=== PATIENT | female | born 1960 | race African-American/Black ===

== ENCOUNTER 2016-09-10 15:59 | Emergency (ER) | payer OTHER ==
[~2016-09-10 15:59] MED LIST: ADVA115INH INH; AMLO2.5T PO; CALTTAB10 PO; CLON0.2T PO; DEXI60CA PO; FOLI1TAB86 PO; FURO20TA2 PO; GABA400C PO; HYDR-3363 PO; HYDR5TAB23 PO; LAMO50TA PO; LANS30CA PO; LOSA100T36 PO; METH2.5T PO; TRAZ50TA2 PO; VENTAER INH; ZYRT10CA PO
[2016-09-10 16:35] LABS: BASO % 0.5 % (0.0-1.0); EOS # 0.1 K/mm3 (0.0-0.50); EOS % 1.4 % (0.0-3.0); LARGE UNSTAINED CELL # 0.2 K/mm3 (0.0-0.4); LYMPH # 1.2 K/mm3 (1.5-4.5); LYMPH % 15.5 % (24.0-44.0); MEAN CORPUSCULAR HEMOGLOBIN 35.2 pg (27.0-33.0); MEAN CORPUSCULAR VOLUME 103.6 fl (80.0-96.0); MONO # 0.2 K/mm3 (0.0-0.8); MONO % 2.8 % (0.0-5.0); NEUTROPHILS # 6.2 K/mm3 (1.8-7.7); NEUTROPHILS % 77.8 % (36.0-66.0); PLATELET COUNT, AUTOMATED 240 k/mm3 (150-450); RED CELL DISTRIBUTION WIDTH 13.3 % (11.5-14.5)
[2016-09-10 16:54] LABS: ANION GAP 11 MEQ/L (8-16); BLOOD UREA NITROGEN 6 MG/DL (7-18); CALCIUM LEVEL 8.6 MG/DL (8.5-10.1); CARBON DIOXIDE LEVEL 25 MEQ/L (21-32); CHLORIDE LEVEL 104 MEQ/L (98-107); CREATININE FOR GFR 1.89 MG/DL (0.55-1.02); GLOMERULAR FILTRATION RATE 35.4 (>51); GLUCOSE, FASTING 131 MG/DL (70-105); SODIUM LEVEL 140 MEQ/L (136-145)
[2016-09-10] MEDS ORDERED: guaiFENesin DM LIQ 10ML UD As Ordered ONE (17:02)
[2016-09-10] MEDS ORDERED: IPRATROPIUM 0.5MG/ALBUTEROL 2.5MG INH SOL UD 3ML (DUONEB)(J7620) As Ordered ONE (17:07)
[2016-09-10] MEDS ORDERED: dexameTHASONE 4 MG/ML 1ML VIAL (J1100) As Ordered ONE (17:07)
--- NOTE | 2016-09-10 17:12 | REP ---
Chest two views HISTORY: Cough Comparison: 06/08/2016 The lungs are clear. The heart is normal in size. The pulmonary vasculature is normal in appearance. The bony structure is intact. IMPRESSION: No acute disease. Signed by Yung Lawson MD 09/10/2016 05:03 P
[2016-09-10] MEDS ORDERED: POTASSIUM CHLORIDE 10 MEQ SR TABLET As Ordered ONE (18:39)
[2016-09-10] MEDS ORDERED: MORPHINE 4 MG/ML 1ML SYRINGE As Ordered ONE (18:40)
[2016-09-10] MEDS ORDERED: ACETAMINOPHEN 325 MG TAB As Ordered ONE (19:51)
--- NOTE | 2016-09-10 20:01 | EDDOCDS ---
Nurse's Notes [facility] Name: Aggie Champion Age: 56 yrs Sex: Female : 1960 Arrival Date: 09/10/2016 Time: 15:59 Bed 19 Private MD: Unknown, Family Dr Diagnosis: Simple chronic bronchitis;Pleurodynia;Hypokalemia Presentation: 09/10 16:12 Presenting complaint: Patient states: has been having chest pain / throat pain for last bcj few days worse today. + harsh cough. localizes worst pain under left breast. denies sweating. denies nausea vomiting. Aspirin was not taken prior to arrival. Adult Sepsis Screening: The patient does not have new or worsening altered mentation. Patient's respiratory rate is less than 22. Systolic blood pressure is greater than 100. Patient has a qSOFA score of 0- Negative Sepsis Screen. Suicide/Homicide risk assessment- the patient denies having any suicidal and/or homicidal ideations and does not present with any other emotional, behavioral or mental health complaints. Status: Patient is not a director of professional services or dependent. Transition of care: patient was not received from another setting of care. Red Flag criteria, patient assessed and taken directly to a bed. 16:12 Acuity: ROHAN Level 2 bcj 16:12 Method Of Arrival: Walkin/Carried/Asstd bcj Triage Assessment: 16:15 General: Appears distressed, Behavior is anxious. Pain: Location: chest and neck Pain bcj currently is 10 out of 10 on a pain scale. Pt Declines HIV testing. Cardiovascular: Chest pain is described as severe, radiates to left arm(s) episodes are continuous began. Derm: Skin is pink, warm & dry. Historical: - Allergies: Aspirin (Upset stomach); Motrin (Upset stomach); - Home Meds: 1. Advair Diskus 100-50 mcg/dose Inhl dsdv 1 puff 2 times per day 2. amlodipine 2.5 mg Oral tab 1 tab once daily 3. Atarax Oral 25 mg twice a day as needed 4. Caltrate 600 + D 600 mg (1,500 mg)-800 unit oral susp daily 5. folic acid 1 mg Oral tab 1 tab once daily 6. furosemide 20 mg Oral tab 1 tab once daily 7. gabapentin 400 mg Oral cap twice a day 8. hydrocodone-acetaminophen 5-325 mg Oral tab three times a day as needed 9. lamotrigine 100 mg Oral TbDL 2 times per day 10. lansoprazole 30 mg oral cpDR 30 mins pior to meals 11. losartan 100 mg oral tab 1 tab once daily 12. Methotrexate (Anti-Rheumatic) 2.5 mg Oral DsPk 7 tabs once wkly 13. Ventolin HFA 90 mcg/actuation Nebulizer HFAA 2 puffs every 6 hours as needed - PMHx: Anxiety; Arthritis; Asthma; Depression; Fibromyalgia; Hypercholesterolemia; Hypertension; insomnia; Osteoporosis; Rheumatoid Arthritis; - PSHx: Hernia repair; Cholecystectomy; - Social history: Smoking status: Patient states former smoker of tobacco. No barriers to communication noted, The patient speaks fluent Moldovan, Speaks appropriately for age. - Family history: Not pertinent. - : The pt / caregiver states he / she is not on anticoagulants. Home medication list is obtained from [employer] import data. - Exposure Risk Screening:: None identified. Screenin:07 Infection Control. cmb 16:20 Screening information is obtained from the patient. Fall risk: No risks identified. jmb Assistance ADL's: requires no assistance with activities of daily living. Abuse/DV Screen: The patient / caregiver reports he/she is: not in a situation that causes fear, pain or injury. Nutritional screening: No deficits noted. home support is adequate. 19:57 Advance Directives: Currently, there is no health care proxy. There is no active DNR jmb order. There is no living will. There is no Power of Community Health Director. Assessment: 16:20 General: Appears uncomfortable, Behavior is restless. Pain: Location: neck and chest jmb Pain currently is 10 out of 10 on a pain scale. Is intermittent. Neurological: Level of Consciousness is awake, alert, obeys commands, Oriented to person, place, time, Shank Taper are equal bilaterally Speech is normal, Facial symmetry appears normal, Facial symmetry: tongue is midline. Cardiovascular: Capillary refill < 3 seconds Heart tones S1 S2 present Pulses are all present. Rhythm is sinus tachycardia No ectopy. Chest pain is described as Pain is 10 out of 10 on a pain scale. Respiratory: Airway is patent Respiratory effort is even, unlabored, Respiratory pattern is regular, symmetrical, Breath sounds are clear bilaterally. GI: Abdomen is non- distended Bowel sounds present X 4 quads. Abd is soft X 4 quads. Derm: Skin is normal. Musculoskeletal: Range of motion intact in all extremities. 17:05 General: Appears uncomfortable, Behavior is appropriate for age, cooperative, Patient jmb restless on stretcher, medicated per provider orders. Respiratory paged per orders.. Neurological: Level of Consciousness is awake, alert, obeys commands, Oriented to person, place, time. Respiratory: Airway is patent Respiratory effort is even, unlabored, Respiratory pattern is regular, symmetrical. 17:44 General: Appears in no apparent distress, Behavior is appropriate for age, cooperative, jmb Patient laying on stretcher, family at bedside. NO voiced complaints at this time. . Neurological: Level of Consciousness is awake, alert, obeys commands, Oriented to person, place, time. Respiratory: Airway is patent Respiratory effort is even, unlabored, Respiratory pattern is regular, symmetrical. 17:56 General: Patient defecated in pants. Demeisha Aryan DIRECTOR OF ACQUISITION MARKETING and Camryn Gonzalez DIRECTOR OF ACQUISITION MARKETING in to jmb clean patient. . 18:15 General: Appears in no apparent distress, comfortable, Behavior is appropriate for age, jmb cooperative. Neurological: Level of Consciousness is awake, alert, obeys commands, Oriented to person, place, time. Respiratory: Airway is patent Respiratory effort is even, unlabored, Respiratory pattern is regular, symmetrical. 18:18 General: Patient requested something for pain. Notified Dr. Jones of patient request jmb for pain medication.. 18:48 General: Appears uncomfortable, Behavior is appropriate for age, cooperative, Patient jmb hollering out, patient encouraged to relax. Patient encouraged to breath in through nose and out through mouth. Patient after instructed started to feel more comfortable, less hollering out in discomfort. . Neurological: Level of Consciousness is awake, alert, obeys commands, Oriented to person, place, time. Respiratory: Airway is patent Respiratory effort is even, unlabored, Respiratory pattern is regular, symmetrical. 19:57 General: Patient instructed on discharge instructions. Patient asked if there were any b questions regarding discharge, patient stated no. IV discontinued per hospital policy. Patient signed discharge instructions. Patient temperature upon discharge 101.0 orally, notified Dr. Llamas whom ordered tylenol 650 mg by mouth. Patient refused tylenol stating that they normally order her pain medications for her temperature. Patient explained that provider ordered tylenol, unable to give motrin or aspirin due to allergy. Patient refused all medications at this time. Patient discharged in stable condition. . Vital Signs: 16:02 BP 120 / 71; Pulse 122; Resp 20; Temp 99(O); Pulse Ox 94% ; Weight 71.67 kg; Height 5 cmb ft. 2 in. (157.48 cm); Pain 10/10; 16:41 BP 104 / 55 (auto/); jmb 16:41 Pulse 118 MON; Pulse Ox 93% ; jmb 16:56 BP 143 / 97 (auto/); jmb 16:56 Pulse 120 MON; Pulse Ox 90% ; jmb 17:26 BP 144 / 83 (auto/); jmb 17:26 Pulse 118 MON; Pulse Ox 87% ; jmb 17:41 BP 140 / 77 (auto/); jmb 17:41 Pulse 124 MON; Pulse Ox 78% ; jmb 17:56 BP 115 / 81 (auto/); jmb 17:56 Pulse 128 MON; jmb 18:11 BP 160 / 72 (auto/); jmb 18:11 Pulse 126 MON; jmb 18:26 BP 124 / 67 (auto/); jmb 18:26 Pulse 124 MON; jmb 18:41 BP 125 / 69 (auto/); jmb 18:42 Pulse 126 MON; Pulse Ox 88% ; jmb 19:10 BP 117 / 64; Pulse 118; Resp 20; Temp 101.3(O); Pulse Ox 89% on R/A; Pain 9/10; shannan 19:57 Temp 101.0(O); jmb 16:02 Body Mass Index 28.90 (71.67 kg, 157.48 cm) b 19:10 RN aware of temp shannan 19:[address] Llamas [facility] Vitals: 16:02 Log In Time: September 10, 2016 at 15:[address]. [facility] ED Course: 16:00 Patient visited by Palak Thorpe. [facility] 16:00 Patient moved to Waiting [facility] 16:02 Unknown, Family is Private Physician. [facility] 16:02 RN notified that patient meets Red Flag criteria. b 16:12 Patient moved to 19 [facility] 16:14 Triage Initiated [facility] 16:17 Patient visited by Anthony Martinez, MALDONADO. bcj 16:19 Roe Jones DO is Attending Physician. cs11 16:19 Patient visited by Roe Jones DO. cs11 16:20 The patient / caregiver is instructed regarding the plan of care and ED course. Cardiac jmb monitor on. Pulse ox on. NIBP on. 16:20 EKG done. (by ED staff). Reviewed by Roe Jones DO. dem1 16:20 Inserted saline lock: 20 gauge in right antecubital area and blood collected. The jmb patient tolerated the procedure well. Labs drawn. (by ED staff). Sent per order to lab. 16:23 Patient visited by Lalita Baeza. dem1 16:24 Patient visited by Jamar Christopher,MALDONADO. jmb 16:30 -Influenza A&B Rapid Antigen - Nose Sent. jmb 17:06 Patient visited by Jamar Christopher RN. jmb 17:23 Chest, 2 View (pa\E\lat) Returned. EDMS 17:44 Patient visited by Jamar Christopher RN. jmb 18:15 Patient visited by Jamar Christopher RN. jmb 18:42 Patient visited by Uzma Pedroza PCA. shannan 18:42 Assisted with bedpan. shannan 18:49 Patient visited by Jamar Christopher RN. jmb 19:11 Patient visited by Uzma Pedroza PCA. shannan 19:57 Discontinued lock intact, bleeding controlled, pressure dressing applied, No jmb redness/swelling at site. No procedures done that require assistance. Administered Medications: 17:05 Drug: Dextromethorphan-Guaifenesin 5 ml [dextromethorphan-guaifenesin 10 mg-100 mg/5 mL jmb oral liquid (5 mL)] Route: PO; 17:10 Drug: Dexamethasone 10 mg [dexamethasone 4 mg/mL injection solution] Route: IV; Rate: jmb bolus; Site: right antecubital; 17:10 Drug: Albuterol-Ipratropium 3 ml [ipratropium-albuterol 0.5 mg-3 mg(2.5 mg base)/3 mL sd7 nebulization soln (3 mL)] Route: Inhalation; 17:18 Follow up: Response: Nebulizer completed 18:47 Drug: Potassium Chloride 40 mEq [potassium chloride ER 10 mEq tablet,extended release jmb (4 tabs)] Route: PO; 18:47 Drug: morphine 4 mg [morphine 4 mg/mL intravenous cartridge (1 mL)] Route: IVP; Site: [facility] right antecubital; 19:57 Not Given (Patient Refused): Acetaminophen Tablet 650 mg PO once jmb RT: 17:13 Initial Med Neb Given as ordered Patient was instructed and evaluated on procedure sd7 Patient tolerated procedure well without adverse effect. Respiratory: Breath sounds are diminished bilaterally. Order Results: Lab Order: Basic Metabolic Profile; SPEC'M 09/10/16 16:18 Test: GLUCOSE, FASTING; Value: 131; Range: 70-105; Abnormal: Above high normal; Units: MG/DL; Status: F Test: BLOOD UREA NITROGEN; Value: 6; Range: 7-18; Abnormal: Below low normal; Units: MG/DL; Status: F Test: CREATININE FOR GFR; Value: 1.89; Range: 0.55-1.02; Abnormal: Above high normal; Units: MG/DL; Status: F Test: GLOMERULAR FILTRATION RATE; Value: 35.4; Range: >51; Abnormal: Below low normal; Status: F Test: SODIUM LEVEL; Value: 140; Range: 136-145; Units: MEQ/L; Status: F Test: POTASSIUM SERUM; Value: 3.0; Range: 3.5-5.1; Abnormal: Below low normal; Units: MEQ/L; Status: F Test: CHLORIDE LEVEL; Value: 104; Range: 98-107; Units: MEQ/L; Status: F Test: CARBON DIOXIDE LEVEL; Value: 25; Range: 21-32; Units: MEQ/L; Status: F Test: ANION GAP; Value: 11; Range: 8-16; Units: MEQ/L; Status: F Test: CALCIUM LEVEL; Value: 8.6; Range: 8.5-10.1; Units: MG/DL; Status: F Test Note: ; Units are mL/min/1.73 m2 Chronic Kidney Disease Staging per NKF: Stage I & II GFR >=60 Normal to Mildly Decreased Stage III GFR 30-59 Moderately Decreased Stage IV GFR 15-29 Severely Decreased Stage V GFR <15 Very Little GFR Left ESRD GFR <15 on DRAWING INSTRUCTOR Lab Order: CBC with Diff; SPEC'M 09/10/16 16:18 Test: WHITE BLOOD COUNT; Value: 8.0; Range: 4.0-10.0; Units: K/mm3; Status: F Test: RED BLOOD COUNT; Value: 4.06; Range: 4.00-5.40; Units: M/mm3; Status: F Test: HEMOGLOBIN; Value: 14.3; Range: 12.0-16.0; Units: g/dl; Status: F Test: HEMATOCRIT; Value: 42.1; Range: 36.0-47.0; Units: %; Status: F Test: MEAN CORPUSCULAR VOLUME; Value: 103.6; Range: 80.0-96.0; Abnormal: Above high normal; Units: fl; Status: F Test: MEAN CORPUSCULAR HEMOGLOBIN; Value: 35.2; Range: 27.0-33.0; Abnormal: Above high normal; Units: pg; Status: F Test: MEAN CORPUSCULAR HGB CONC; Value: 34.0; Range: 32.0-36.5; Units: g/dl; Status: F Test: RED CELL DISTRIBUTION WIDTH; Value: 13.3; Range: 11.5-14.5; Units: %; Status: F Test: PLATELET COUNT, AUTOMATED; Value: 240; Range: 150-450; Units: k/mm3; Status: F Test: NEUTROPHILS %; Value: 77.8; Range: 36.0-66.0; Abnormal: Above high normal; Units: %; Status: F Test: LYMPH %; Value: 15.5; Range: 24.0-44.0; Abnormal: Below low normal; Units: %; Status: F Test: MONO %; Value: 2.8; Range: 0.0-5.0; Units: %; Status: F Test: EOS %; Value: 1.4; Range: 0.0-3.0; Units: %; Status: F Test: BASO %; Value: 0.5; Range: 0.0-1.0; Units: %; Status: F Test: LARGE UNSTAINED CELL %; Value: 2.0; Range: 0.0-4.0; Units: %; Status: F Test: NEUTROPHILS #; Value: 6.2; Range: 1.8-7.7; Units: K/mm3; Status: F Test: LYMPH #; Value: 1.2; Range: 1.5-4.5; Abnormal: Below low normal; Units: K/mm3; Status: F Test: MONO #; Value: 0.2; Range: 0.0-0.8; Units: K/mm3; Status: F Test: EOS #; Value: 0.1; Range: 0.0-0.50; Units: K/mm3; Status: F Test: BASO #; Value: 0.0; Range: 0.0-0.2; Units: K/mm3; Status: F Test: LARGE UNSTAINED CELL #; Value: 0.2; Range: 0.0-0.4; Units: K/mm3; Status: F Lab Order: Cardiac Injury Profile; SPEC' 09/10/16 16:18 Test: CPK CREATINE PHOSPHOKINASE; Value: 483; Range: 26-192; Abnormal: Above high normal; Units: U/L; Status: F Test: CK-MB VALUE MASS; Value: 1.0; Range: 0.0-3.6; Units: NG/ML; Status: F Test: MB/CK RELATIVE INDEX; Value: 0.20; Range: < OR =4; Status: F Test Note: ; DIAGNOSIS CRITERIA MMB ng/ml Relative Index (RI) NON-AMI < or = 5 N/A MORALES ZONE > 5 < or = 4 AMI > 5 > 4 Lab Order: Troponin; SPEC'M 09/10/16 16:18 Test: TROPONIN I; Value: < 0.02; Range: < 0.10; Units: NG/ML; Status: F Test Note: ; Troponin I Reference Interval for [employer] LOCI: 99th Percentile= 0.00-0.045 ng/ml Risk Stratification: <= 0.10 ng/ml Decreased Risk for Adverse Clinical Events. 0.10-1.50 ng/ml Increased Risk for Adverse Clinical Events. Evaluation of additional criterion and/or repeat testing in 2-6 hours is suggested to rule out myocardial damage. >= 1.50 ng/ml Indicative of Myocardial Injury. Lab Order: -Influenza A&B Rapid Antigen - Nose; SPEC'M 09/10/16 16:27 Test: INFLUENZA A RAPID SCR by ICA; Value: INFLUENZA A RESULTS NEGATIVE; Status: F Test: INFLUENZA A RAPID SCR by ICA; Value: Comments:; Status: F Test: INFLUENZA B RAPID SCR by ICA; Value: INFLUENZA B RESULTS NEGATIVE; Status: F Test Note: ; The Influenza test is a direct rapid immunoassay for the qualitative detection of Influenza viral antigen. Cell culture (Viral Culture) testing should be considered to confirm NEGATIVE results and to assist in detecting other viruses that can provide similar clinical symptoms. Please contact the lab within 24 hours ([phone]) if confirmatory testing is desired. Radiology Order: Chest, 2 View (pa\E\lat) Test: Chest, 2 View (pa\E\lat) REASON FOR EXAMINATION: Cough; Chest two views; ; HISTORY: Cough; ; Comparison: 06/08/2016; ; The lungs are clear. The heart is normal in size. The pulmonary vasculature is; normal in appearance. The bony structure is intact.; ; IMPRESSION: No acute disease.; ; ; Signed by; Yung Lawson MD 09/10/2016 05:03 P; Outcome: 19:05 Discharge ordered by Provider. 11 19:57 Discharge Assessment: Patient awake, alert and oriented x 3. No cognitive and/or jmb functional deficits noted. Patient verbalized understanding of disposition instructions. Patient awake and alert. obeys commands, Oriented to person, place and time. Patient verbalized understanding of disposition instructions. Patient has no functional deficits. patient administered narcotics - no. Discharge Assessment: patient administered narcotics - yes. Pt provided with safe discharge. The following High Risk Discharge criteria are identified: None. Discharged to home ambulatory, with significant other. Condition: stable. Discharge instructions given to patient, Instructed on discharge instructions, follow up and referral plans. medication usage, Demonstrated understanding of instructions, medications, Pt was receptive of discharge instructions/ teaching. Prescriptions given X 2. No special radiology studies were completed. Property sent home with patient. 20:00 Patient left the ED. chalino Signatures: Dispatcher [employer] EDAnthony Bourgeois, RN RN Uzma Ghosh, DANIELLA DIRECTOR OF ACQUISITION MARKETING Lalita Wilson1 Palak Thorpe cmRoe Holder DO DO cs11 Jamar Christopher,Neida Ramirez RN,RT RT sd7 MTDD
--- NOTE | 2016-09-10 20:01 | EDDOCDS ---
Physician Documentation [facility] Name: Aggie Champion Age: 56 yrs Sex: Female : 1960 Arrival Date: 09/10/2016 Time: 15:59 Bed 19 Private MD: Unknown, Family Dr Disposition: 09/10/16 19:05 Discharged to Home/Self Care. Impression: Simple chronic bronchitis, Pleurodynia, Hypokalemia. - Condition is Stable. - Prescriptions for dextromethorphan- guaifenesin 30-200 mg/5 mL Oral liquid - take 5 milliliter by ORAL route every 6 hours as needed; 100 milliliter. Prednisone 20 mg Oral Tablet - take 3 tablet by ORAL route once daily for 5 days; 15 tablet. - Medication Reconciliation, Local Pharmacy Hours form. - Follow up: Private Physician; When: Call to arrange an appointment; Reason: Recheck today's complaints. - Problem is an ongoing problem. - Symptoms have improved. Historical: - Allergies: Aspirin (Upset stomach); Motrin (Upset stomach); - Home Meds: 1. Advair Diskus 100-50 mcg/dose Inhl dsdv 1 puff 2 times per day 2. amlodipine 2.5 mg Oral tab 1 tab once daily 3. Atarax Oral 25 mg twice a day as needed 4. Caltrate 600 + D 600 mg (1,500 mg)-800 unit oral susp daily 5. folic acid 1 mg Oral tab 1 tab once daily 6. furosemide 20 mg Oral tab 1 tab once daily 7. gabapentin 400 mg Oral cap twice a day 8. hydrocodone-acetaminophen 5-325 mg Oral tab three times a day as needed 9. lamotrigine 100 mg Oral TbDL 2 times per day 10. lansoprazole 30 mg oral cpDR 30 mins pior to meals 11. losartan 100 mg oral tab 1 tab once daily 12. Methotrexate (Anti-Rheumatic) 2.5 mg Oral DsPk 7 tabs once wkly 13. Ventolin HFA 90 mcg/actuation Nebulizer HFAA 2 puffs every 6 hours as needed - PMHx: Anxiety; Arthritis; Asthma; Depression; Fibromyalgia; Hypercholesterolemia; Hypertension; insomnia; Osteoporosis; Rheumatoid Arthritis; - PSHx: Hernia repair; Cholecystectomy; - Social history: Smoking status: Patient states former smoker of tobacco. No barriers to communication noted, The patient speaks fluent Czech, Speaks appropriately for age. - Family history: Not pertinent. - : The pt / caregiver states he / she is not on anticoagulants. Home medication list is obtained from [employer] import data. - Exposure Risk Screening:: None identified. Vital Signs: 09/10 16:02 BP 120 / 71; Pulse 122; Resp 20; Temp 99(O); Pulse Ox 94% ; Weight 71.67 kg / 158.01 cmb lbs; Height 5 ft. 2 in. (157.48 cm); Pain 10/10; 16:41 BP 104 / 55 (auto/); jmb 16:41 Pulse 118 MON; Pulse Ox 93% ; jmb 16:56 BP 143 / 97 (auto/); jmb 16:56 Pulse 120 MON; Pulse Ox 90% ; jmb 17:26 BP 144 / 83 (auto/); jmb 17:26 Pulse 118 MON; Pulse Ox 87% ; jmb 17:41 BP 140 / 77 (auto/); jmb 17:41 Pulse 124 MON; Pulse Ox 78% ; jmb 17:56 BP 115 / 81 (auto/); jmb 17:56 Pulse 128 MON; jmb 18:11 BP 160 / 72 (auto/); jmb 18:11 Pulse 126 MON; jmb 18:26 BP 124 / 67 (auto/); jmb 18:26 Pulse 124 MON; jmb 18:41 BP 125 / 69 (auto/); jmb 18:42 Pulse 126 MON; Pulse Ox 88% ; jmb 19:10 BP 117 / 64; Pulse 118; Resp 20; Temp 101.3(O); Pulse Ox 89% on R/A; Pain 9/10; shannan 19:57 Temp 101.0(O); jmb 16:02 Body Mass Index 28.90 (71.67 kg, 157.48 cm) cmb 19:10 RN aware of temp shannan 19:[address] Muriel allred MDM: 16:13 Software Configuration Specialist/Pulse Ox/q 30 min VS ordered. sd1 16:13 IV Saline Lock ordered. sd1 16:13 Rhythm Strip to chart ordered. sd1 16:13 Undress patient appropriately for examination ordered. sd1 16:14 Basic Metabolic Profile Ordered. EDMS 16:14 CBC with Diff Ordered. EDMS 16:14 Cardiac Injury Profile Ordered. EDMS 16:14 Troponin Ordered. EDMS 16:15 ECG WITH READING ER PHYS+CARDIAG ordered. EDMS 16:20 Chest, 2 View (pa\E\lat) Ordered. EDMS 16:23 -Influenza A&B Rapid Antigen - Nose Ordered. EDMS 16:42 CBC with Diff Reviewed. cs11 16:43 Dextromethorphan-Guaifenesin Liquid 10 mg-100 mg/5 mL 5 ml PO once ordered. cs11 17:00 Basic Metabolic Profile Reviewed. cs11 17:00 Cardiac Injury Profile Reviewed. cs11 17:00 Troponin Reviewed. cs11 17:00 -Influenza A&B Rapid Antigen - Nose Reviewed. cs11 17:01 Dexamethasone 10 mg IV at bolus once ordered. cs11 17:01 Albuterol-Ipratropium 3 ml Inhalation once ordered. cs11 17:01 Call Respiratory ordered. cs11 17:05 Call Respiratory complete. b 17:22 Financial registration complete. [email or web address] 18:21 Chest, 2 View (pa\E\lat) Reviewed. cs11 18:21 Potassium Chloride Extended Release Tablet 40 mEq PO once ordered. cs11 18:22 morphine 4 mg IVP once ordered. cs11 19:51 Acetaminophen Tablet 650 mg PO once ordered. michelle Administered Medications: 17:05 Drug: Dextromethorphan-Guaifenesin 5 ml [dextromethorphan-guaifenesin 10 mg-100 mg/5 mL b oral liquid (5 mL)] Route: PO; 17:10 Drug: Dexamethasone 10 mg [dexamethasone 4 mg/mL injection solution] Route: IV; Rate: jmb bolus; Site: right antecubital; 17:10 Drug: Albuterol-Ipratropium 3 ml [ipratropium-albuterol 0.5 mg-3 mg(2.5 mg base)/3 mL 7 nebulization soln (3 mL)] Route: Inhalation; 17:18 Follow up: Response: Nebulizer completed 18:47 Drug: Potassium Chloride 40 mEq [potassium chloride ER 10 mEq tablet,extended release jmb (4 tabs)] Route: PO; 18:47 Drug: morphine 4 mg [morphine 4 mg/mL intravenous cartridge (1 mL)] Route: IVP; Site: [facility] right antecubital; 19:57 Not Given (Patient Refused): Acetaminophen Tablet 650 mg PO once jmb Signatures: Dispatcher [employer] EDMS Tammie Acosta MD MD sd1 Anthony Martinez, RN RN mary Pillai, Hillary Diehl RN Roe Huggins, DO cs11 Jamar Christopher RN RN jmb Sorenson, Kimberly, Reg Reg [id number] Neida Contreras RT sd7 The chart was reviewed and I authenticate all verbal orders and agree with the evaluation and treatment provided.Corrections: (The following items were deleted from the chart) 16:21 16:15 Chest, 1 view+XR ordered. EDMS EDMS MTDD
--- NOTE | 2016-09-11 19:46 | ECGEPIP ---
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
--- NOTE | 2016-09-12 21:02 | EDDOCDS ---
Physician Documentation [facility] Name: Aggie Champion Age: 56 yrs Sex: Female : 1960 Arrival Date: 09/10/2016 Time: 15:59 Bed 19 Private MD: Unknown, Family Dr Disposition: 09/10/16 19:05 Discharged to Home/Self Care. Impression: Simple chronic bronchitis, Pleurodynia, Hypokalemia. - Condition is Stable. - Prescriptions for dextromethorphan- guaifenesin 30-200 mg/5 mL Oral liquid - take 5 milliliter by ORAL route every 6 hours as needed; 100 milliliter. Prednisone 20 mg Oral Tablet - take 3 tablet by ORAL route once daily for 5 days; 15 tablet. - Medication Reconciliation, Local Pharmacy Hours form. - Follow up: Private Physician; When: Call to arrange an appointment; Reason: Recheck today's complaints. - Problem is an ongoing problem. - Symptoms have improved. Historical: - Allergies: Aspirin (Upset stomach); Motrin (Upset stomach); - Home Meds: 1. Advair Diskus 100-50 mcg/dose Inhl dsdv 1 puff 2 times per day 2. amlodipine 2.5 mg Oral tab 1 tab once daily 3. Atarax Oral 25 mg twice a day as needed 4. Caltrate 600 + D 600 mg (1,500 mg)-800 unit oral susp daily 5. folic acid 1 mg Oral tab 1 tab once daily 6. furosemide 20 mg Oral tab 1 tab once daily 7. gabapentin 400 mg Oral cap twice a day 8. hydrocodone-acetaminophen 5-325 mg Oral tab three times a day as needed 9. lamotrigine 100 mg Oral TbDL 2 times per day 10. lansoprazole 30 mg oral cpDR 30 mins pior to meals 11. losartan 100 mg oral tab 1 tab once daily 12. Methotrexate (Anti-Rheumatic) 2.5 mg Oral DsPk 7 tabs once wkly 13. Ventolin HFA 90 mcg/actuation Nebulizer HFAA 2 puffs every 6 hours as needed - PMHx: Anxiety; Arthritis; Asthma; Depression; Fibromyalgia; Hypercholesterolemia; Hypertension; insomnia; Osteoporosis; Rheumatoid Arthritis; - PSHx: Hernia repair; Cholecystectomy; - Social history: Smoking status: Patient states former smoker of tobacco. No barriers to communication noted, The patient speaks fluent Moldovan, Speaks appropriately for age. - Family history: Not pertinent. - : The pt / caregiver states he / she is not on anticoagulants. Home medication list is obtained from [employer] import data. - Exposure Risk Screening:: None identified. Vital Signs: 09/10 16:02 BP 120 / 71; Pulse 122; Resp 20; Temp 99(O); Pulse Ox 94% ; Weight 71.67 kg / 158.01 cmb lbs; Height 5 ft. 2 in. (157.48 cm); Pain 10/10; 16:41 BP 104 / 55 (auto/); jmb 16:41 Pulse 118 MON; Pulse Ox 93% ; jmb 16:56 BP 143 / 97 (auto/); jmb 16:56 Pulse 120 MON; Pulse Ox 90% ; jmb 17:26 BP 144 / 83 (auto/); jmb 17:26 Pulse 118 MON; Pulse Ox 87% ; jmb 17:41 BP 140 / 77 (auto/); jmb 17:41 Pulse 124 MON; Pulse Ox 78% ; jmb 17:56 BP 115 / 81 (auto/); jmb 17:56 Pulse 128 MON; jmb 18:11 BP 160 / 72 (auto/); jmb 18:11 Pulse 126 MON; jmb 18:26 BP 124 / 67 (auto/); jmb 18:26 Pulse 124 MON; jmb 18:41 BP 125 / 69 (auto/); jmb 18:42 Pulse 126 MON; Pulse Ox 88% ; jmb 19:10 BP 117 / 64; Pulse 118; Resp 20; Temp 101.3(O); Pulse Ox 89% on R/A; Pain 9/10; shannan 19:57 Temp 101.0(O); jmb 16:02 Body Mass Index 28.90 (71.67 kg, 157.48 cm) cmb 19:10 RN aware of temp shannan 19:[address] Muriel allred MDM: 16:13 Manager Mechanical/Pulse Ox/q 30 min VS ordered. sd1 16:13 IV Saline Lock ordered. sd1 16:13 Rhythm Strip to chart ordered. sd1 16:13 Undress patient appropriately for examination ordered. sd1 16:14 Basic Metabolic Profile Ordered. EDMS 16:14 CBC with Diff Ordered. EDMS 16:14 Cardiac Injury Profile Ordered. EDMS 16:14 Troponin Ordered. EDMS 16:15 ECG WITH READING ER PHYS+CARDIAG ordered. EDMS 16:20 Chest, 2 View (pa\E\lat) Ordered. EDMS 16:23 -Influenza A&B Rapid Antigen - Nose Ordered. EDMS 16:42 CBC with Diff Reviewed. cs11 16:43 Dextromethorphan-Guaifenesin Liquid 10 mg-100 mg/5 mL 5 ml PO once ordered. cs11 17:00 Basic Metabolic Profile Reviewed. cs11 17:00 Cardiac Injury Profile Reviewed. cs11 17:00 Troponin Reviewed. cs11 17:00 -Influenza A&B Rapid Antigen - Nose Reviewed. cs11 17:01 Dexamethasone 10 mg IV at bolus once ordered. cs11 17:01 Albuterol-Ipratropium 3 ml Inhalation once ordered. cs11 17:01 Call Respiratory ordered. cs11 17:05 Call Respiratory complete. b 17:22 Financial registration complete. [email or web address] 18:21 Chest, 2 View (pa\E\lat) Reviewed. cs11 18:21 Potassium Chloride Extended Release Tablet 40 mEq PO once ordered. cs11 18:22 morphine 4 mg IVP once ordered. cs11 19:51 Acetaminophen Tablet 650 mg PO once ordered. sep 23:28 [facility] Payment Agreement was scanned into [employer] and attached to record. [email or web address] 09/11 09:44 T-Sheet-- Draft Copy was scanned into [employer] and attached to record. gb 09:45 ECG/EKG was scanned into [employer] and attached to record. gb 09:45 Trend VS was scanned into [employer] and attached to record. gb Administered Medications: 09/10 17:05 Drug: Dextromethorphan-Guaifenesin 5 ml [dextromethorphan-guaifenesin 10 mg-100 mg/5 mL jmb oral liquid (5 mL)] Route: PO; 17:10 Drug: Dexamethasone 10 mg [dexamethasone 4 mg/mL injection solution] Route: IV; Rate: jmb bolus; Site: right antecubital; 17:10 Drug: Albuterol-Ipratropium 3 ml [ipratropium-albuterol 0.5 mg-3 mg(2.5 mg base)/3 mL sd7 nebulization soln (3 mL)] Route: Inhalation; 17:18 Follow up: Response: Nebulizer completed 18:47 Drug: Potassium Chloride 40 mEq [potassium chloride ER 10 mEq tablet,extended release jmb (4 tabs)] Route: PO; 18:47 Drug: morphine 4 mg [morphine 4 mg/mL intravenous cartridge (1 mL)] Route: IVP; Site: jmb right antecubital; 19:57 Not Given (Patient Refused): Acetaminophen Tablet 650 mg PO once jmb Signatures: Dispatcher [employer] EDTammie Oshea MD MD sd1 Anthony Martinez, RN RN mary Pillai, Hillary Diehl, RN Maddie Ferreira, Reg Reg gb Roe Jones, DO cs11 Jamar Christopher RN RN jmb Sorenson, Kimberly, Reg Reg [email or web address] Neida Contreras RT 7 The chart was reviewed and I authenticate all verbal orders and agree with the evaluation and treatment provided.Corrections: (The following items were deleted from the chart) 16:21 16:15 Chest, 1 view+XR ordered. EDFL EDMS Attachments: 23:28 [facility] Payment Agreement [email or web address] 09/11 09:44 T-Sheet-- Draft Copy gb 09:45 ECG/EKG gb Chart Complete MTDD
--- NOTE | 2016-09-12 21:02 | EDDOCDS ---
Physician Documentation [facility] Name: Aggie Champion Age: 56 yrs Sex: Female : 1960 Arrival Date: 09/10/2016 Time: 15:59 Bed 19 Private MD: Unknown, Family Dr Disposition: 09/10/16 19:05 Discharged to Home/Self Care. Impression: Simple chronic bronchitis, Pleurodynia, Hypokalemia. - Condition is Stable. - Prescriptions for dextromethorphan- guaifenesin 30-200 mg/5 mL Oral liquid - take 5 milliliter by ORAL route every 6 hours as needed; 100 milliliter. Prednisone 20 mg Oral Tablet - take 3 tablet by ORAL route once daily for 5 days; 15 tablet. - Medication Reconciliation, Local Pharmacy Hours form. - Follow up: Private Physician; When: Call to arrange an appointment; Reason: Recheck today's complaints. - Problem is an ongoing problem. - Symptoms have improved. Historical: - Allergies: Aspirin (Upset stomach); Motrin (Upset stomach); - Home Meds: 1. Advair Diskus 100-50 mcg/dose Inhl dsdv 1 puff 2 times per day 2. amlodipine 2.5 mg Oral tab 1 tab once daily 3. Atarax Oral 25 mg twice a day as needed 4. Caltrate 600 + D 600 mg (1,500 mg)-800 unit oral susp daily 5. folic acid 1 mg Oral tab 1 tab once daily 6. furosemide 20 mg Oral tab 1 tab once daily 7. gabapentin 400 mg Oral cap twice a day 8. hydrocodone-acetaminophen 5-325 mg Oral tab three times a day as needed 9. lamotrigine 100 mg Oral TbDL 2 times per day 10. lansoprazole 30 mg oral cpDR 30 mins pior to meals 11. losartan 100 mg oral tab 1 tab once daily 12. Methotrexate (Anti-Rheumatic) 2.5 mg Oral DsPk 7 tabs once wkly 13. Ventolin HFA 90 mcg/actuation Nebulizer HFAA 2 puffs every 6 hours as needed - PMHx: Anxiety; Arthritis; Asthma; Depression; Fibromyalgia; Hypercholesterolemia; Hypertension; insomnia; Osteoporosis; Rheumatoid Arthritis; - PSHx: Hernia repair; Cholecystectomy; - Social history: Smoking status: Patient states former smoker of tobacco. No barriers to communication noted, The patient speaks fluent Malian, Speaks appropriately for age. - Family history: Not pertinent. - : The pt / caregiver states he / she is not on anticoagulants. Home medication list is obtained from [employer] import data. - Exposure Risk Screening:: None identified. Vital Signs: 09/10 16:02 BP 120 / 71; Pulse 122; Resp 20; Temp 99(O); Pulse Ox 94% ; Weight 71.67 kg / 158.01 cmb lbs; Height 5 ft. 2 in. (157.48 cm); Pain 10/10; 16:41 BP 104 / 55 (auto/); jmb 16:41 Pulse 118 MON; Pulse Ox 93% ; jmb 16:56 BP 143 / 97 (auto/); jmb 16:56 Pulse 120 MON; Pulse Ox 90% ; jmb 17:26 BP 144 / 83 (auto/); jmb 17:26 Pulse 118 MON; Pulse Ox 87% ; jmb 17:41 BP 140 / 77 (auto/); jmb 17:41 Pulse 124 MON; Pulse Ox 78% ; jmb 17:56 BP 115 / 81 (auto/); jmb 17:56 Pulse 128 MON; jmb 18:11 BP 160 / 72 (auto/); jmb 18:11 Pulse 126 MON; jmb 18:26 BP 124 / 67 (auto/); jmb 18:26 Pulse 124 MON; jmb 18:41 BP 125 / 69 (auto/); jmb 18:42 Pulse 126 MON; Pulse Ox 88% ; jmb 19:10 BP 117 / 64; Pulse 118; Resp 20; Temp 101.3(O); Pulse Ox 89% on R/A; Pain 9/10; shannan 19:57 Temp 101.0(O); jmb 16:02 Body Mass Index 28.90 (71.67 kg, 157.48 cm) cmb 19:10 RN aware of temp shannan 19:[address] Muriel allred MDM: 16:13 Home Care Aide/Pulse Ox/q 30 min VS ordered. sd1 16:13 IV Saline Lock ordered. sd1 16:13 Rhythm Strip to chart ordered. sd1 16:13 Undress patient appropriately for examination ordered. sd1 16:14 Basic Metabolic Profile Ordered. EDMS 16:14 CBC with Diff Ordered. EDMS 16:14 Cardiac Injury Profile Ordered. EDMS 16:14 Troponin Ordered. EDMS 16:15 ECG WITH READING ER PHYS+CARDIAG ordered. EDMS 16:20 Chest, 2 View (pa\E\lat) Ordered. EDMS 16:23 -Influenza A&B Rapid Antigen - Nose Ordered. EDMS 16:42 CBC with Diff Reviewed. cs11 16:43 Dextromethorphan-Guaifenesin Liquid 10 mg-100 mg/5 mL 5 ml PO once ordered. cs11 17:00 Basic Metabolic Profile Reviewed. cs11 17:00 Cardiac Injury Profile Reviewed. cs11 17:00 Troponin Reviewed. cs11 17:00 -Influenza A&B Rapid Antigen - Nose Reviewed. cs11 17:01 Dexamethasone 10 mg IV at bolus once ordered. cs11 17:01 Albuterol-Ipratropium 3 ml Inhalation once ordered. cs11 17:01 Call Respiratory ordered. cs11 17:05 Call Respiratory complete. b 17:22 Financial registration complete. [email or web address] 18:21 Chest, 2 View (pa\E\lat) Reviewed. cs11 18:21 Potassium Chloride Extended Release Tablet 40 mEq PO once ordered. cs11 18:22 morphine 4 mg IVP once ordered. cs11 19:51 Acetaminophen Tablet 650 mg PO once ordered. sep 23:28 [facility] Payment Agreement was scanned into [employer] and attached to record. [email or web address] 09/11 09:44 T-Sheet-- Draft Copy was scanned into [employer] and attached to record. gb 09:45 ECG/EKG was scanned into [employer] and attached to record. gb 09:45 Trend VS was scanned into [employer] and attached to record. gb Administered Medications: 09/10 17:05 Drug: Dextromethorphan-Guaifenesin 5 ml [dextromethorphan-guaifenesin 10 mg-100 mg/5 mL jmb oral liquid (5 mL)] Route: PO; 17:10 Drug: Dexamethasone 10 mg [dexamethasone 4 mg/mL injection solution] Route: IV; Rate: jmb bolus; Site: right antecubital; 17:10 Drug: Albuterol-Ipratropium 3 ml [ipratropium-albuterol 0.5 mg-3 mg(2.5 mg base)/3 mL sd7 nebulization soln (3 mL)] Route: Inhalation; 17:18 Follow up: Response: Nebulizer completed 18:47 Drug: Potassium Chloride 40 mEq [potassium chloride ER 10 mEq tablet,extended release jmb (4 tabs)] Route: PO; 18:47 Drug: morphine 4 mg [morphine 4 mg/mL intravenous cartridge (1 mL)] Route: IVP; Site: jmb right antecubital; 19:57 Not Given (Patient Refused): Acetaminophen Tablet 650 mg PO once jmb Signatures: Dispatcher [employer] EDTammie Oshea MD MD sd1 Anthony Martinez, RN RN mary Pillai, Hillary Diehl, RN Maddie Ferreira, Reg Reg gb Roe Jones, DO cs11 Jamar Christopher RN RN jmb Sorenson, Kimberly, Reg Reg [email or web address] Neida Contreras RT 7 The chart was reviewed and I authenticate all verbal orders and agree with the evaluation and treatment provided.Corrections: (The following items were deleted from the chart) 16:21 16:15 Chest, 1 view+XR ordered. EDRI EDMS Attachments: 23:28 [facility] Payment Agreement [email or web address] 09/11 09:44 T-Sheet-- Draft Copy gb 09:45 ECG/EKG gb Chart Complete MTDD
--- NOTE | 2016-09-12 21:02 | EDDOCDS ---
Nurse's Notes [facility] Name: Aggie Champion Age: 56 yrs Sex: Female : 1960 Arrival Date: 09/10/2016 Time: 15:59 Bed 19 Private MD: Unknown, Family Dr Diagnosis: Simple chronic bronchitis;Pleurodynia;Hypokalemia Presentation: 09/10 16:12 Presenting complaint: Patient states: has been having chest pain / throat pain for last bcj few days worse today. + harsh cough. localizes worst pain under left breast. denies sweating. denies nausea vomiting. Aspirin was not taken prior to arrival. Adult Sepsis Screening: The patient does not have new or worsening altered mentation. Patient's respiratory rate is less than 22. Systolic blood pressure is greater than 100. Patient has a qSOFA score of 0- Negative Sepsis Screen. Suicide/Homicide risk assessment- the patient denies having any suicidal and/or homicidal ideations and does not present with any other emotional, behavioral or mental health complaints. Status: Patient is not a digital field service technician or dependent. Transition of care: patient was not received from another setting of care. Red Flag criteria, patient assessed and taken directly to a bed. 16:12 Acuity: ROHAN Level 2 bcj 16:12 Method Of Arrival: Walkin/Carried/Asstd bcj Triage Assessment: 16:15 General: Appears distressed, Behavior is anxious. Pain: Location: chest and neck Pain bcj currently is 10 out of 10 on a pain scale. Pt Declines HIV testing. Cardiovascular: Chest pain is described as severe, radiates to left arm(s) episodes are continuous began. Derm: Skin is pink, warm & dry. Historical: - Allergies: Aspirin (Upset stomach); Motrin (Upset stomach); - Home Meds: 1. Advair Diskus 100-50 mcg/dose Inhl dsdv 1 puff 2 times per day 2. amlodipine 2.5 mg Oral tab 1 tab once daily 3. Atarax Oral 25 mg twice a day as needed 4. Caltrate 600 + D 600 mg (1,500 mg)-800 unit oral susp daily 5. folic acid 1 mg Oral tab 1 tab once daily 6. furosemide 20 mg Oral tab 1 tab once daily 7. gabapentin 400 mg Oral cap twice a day 8. hydrocodone-acetaminophen 5-325 mg Oral tab three times a day as needed 9. lamotrigine 100 mg Oral TbDL 2 times per day 10. lansoprazole 30 mg oral cpDR 30 mins pior to meals 11. losartan 100 mg oral tab 1 tab once daily 12. Methotrexate (Anti-Rheumatic) 2.5 mg Oral DsPk 7 tabs once wkly 13. Ventolin HFA 90 mcg/actuation Nebulizer HFAA 2 puffs every 6 hours as needed - PMHx: Anxiety; Arthritis; Asthma; Depression; Fibromyalgia; Hypercholesterolemia; Hypertension; insomnia; Osteoporosis; Rheumatoid Arthritis; - PSHx: Hernia repair; Cholecystectomy; - Social history: Smoking status: Patient states former smoker of tobacco. No barriers to communication noted, The patient speaks fluent Australian, Speaks appropriately for age. - Family history: Not pertinent. - : The pt / caregiver states he / she is not on anticoagulants. Home medication list is obtained from [employer] import data. - Exposure Risk Screening:: None identified. Screenin:07 Infection Control. cmb 16:20 Screening information is obtained from the patient. Fall risk: No risks identified. jmb Assistance ADL's: requires no assistance with activities of daily living. Abuse/DV Screen: The patient / caregiver reports he/she is: not in a situation that causes fear, pain or injury. Nutritional screening: No deficits noted. home support is adequate. 19:57 Advance Directives: Currently, there is no health care proxy. There is no active DNR jmb order. There is no living will. There is no Power of Ingredient Specialist. Assessment: 16:20 General: Appears uncomfortable, Behavior is restless. Pain: Location: neck and chest jmb Pain currently is 10 out of 10 on a pain scale. Is intermittent. Neurological: Level of Consciousness is awake, alert, obeys commands, Oriented to person, place, time, Costume Technician are equal bilaterally Speech is normal, Facial symmetry appears normal, Facial symmetry: tongue is midline. Cardiovascular: Capillary refill < 3 seconds Heart tones S1 S2 present Pulses are all present. Rhythm is sinus tachycardia No ectopy. Chest pain is described as Pain is 10 out of 10 on a pain scale. Respiratory: Airway is patent Respiratory effort is even, unlabored, Respiratory pattern is regular, symmetrical, Breath sounds are clear bilaterally. GI: Abdomen is non- distended Bowel sounds present X 4 quads. Abd is soft X 4 quads. Derm: Skin is normal. Musculoskeletal: Range of motion intact in all extremities. 17:05 General: Appears uncomfortable, Behavior is appropriate for age, cooperative, Patient jmb restless on stretcher, medicated per provider orders. Respiratory paged per orders.. Neurological: Level of Consciousness is awake, alert, obeys commands, Oriented to person, place, time. Respiratory: Airway is patent Respiratory effort is even, unlabored, Respiratory pattern is regular, symmetrical. 17:44 General: Appears in no apparent distress, Behavior is appropriate for age, cooperative, jmb Patient laying on stretcher, family at bedside. NO voiced complaints at this time. . Neurological: Level of Consciousness is awake, alert, obeys commands, Oriented to person, place, time. Respiratory: Airway is patent Respiratory effort is even, unlabored, Respiratory pattern is regular, symmetrical. 17:56 General: Patient defecated in pants. Demeisha Aryan CASHIER HOST/HOSTESS and Camryn Gonzalez CASHIER HOST/HOSTESS in to jmb clean patient. . 18:15 General: Appears in no apparent distress, comfortable, Behavior is appropriate for age, jmb cooperative. Neurological: Level of Consciousness is awake, alert, obeys commands, Oriented to person, place, time. Respiratory: Airway is patent Respiratory effort is even, unlabored, Respiratory pattern is regular, symmetrical. 18:18 General: Patient requested something for pain. Notified Dr. Jones of patient request jmb for pain medication.. 18:48 General: Appears uncomfortable, Behavior is appropriate for age, cooperative, Patient jmb hollering out, patient encouraged to relax. Patient encouraged to breath in through nose and out through mouth. Patient after instructed started to feel more comfortable, less hollering out in discomfort. . Neurological: Level of Consciousness is awake, alert, obeys commands, Oriented to person, place, time. Respiratory: Airway is patent Respiratory effort is even, unlabored, Respiratory pattern is regular, symmetrical. 19:57 General: Patient instructed on discharge instructions. Patient asked if there were any b questions regarding discharge, patient stated no. IV discontinued per hospital policy. Patient signed discharge instructions. Patient temperature upon discharge 101.0 orally, notified Dr. Llamas whom ordered tylenol 650 mg by mouth. Patient refused tylenol stating that they normally order her pain medications for her temperature. Patient explained that provider ordered tylenol, unable to give motrin or aspirin due to allergy. Patient refused all medications at this time. Patient discharged in stable condition. . Vital Signs: 16:02 BP 120 / 71; Pulse 122; Resp 20; Temp 99(O); Pulse Ox 94% ; Weight 71.67 kg; Height 5 cmb ft. 2 in. (157.48 cm); Pain 10/10; 16:41 BP 104 / 55 (auto/); jmb 16:41 Pulse 118 MON; Pulse Ox 93% ; jmb 16:56 BP 143 / 97 (auto/); jmb 16:56 Pulse 120 MON; Pulse Ox 90% ; jmb 17:26 BP 144 / 83 (auto/); jmb 17:26 Pulse 118 MON; Pulse Ox 87% ; jmb 17:41 BP 140 / 77 (auto/); jmb 17:41 Pulse 124 MON; Pulse Ox 78% ; jmb 17:56 BP 115 / 81 (auto/); jmb 17:56 Pulse 128 MON; jmb 18:11 BP 160 / 72 (auto/); jmb 18:11 Pulse 126 MON; jmb 18:26 BP 124 / 67 (auto/); jmb 18:26 Pulse 124 MON; jmb 18:41 BP 125 / 69 (auto/); jmb 18:42 Pulse 126 MON; Pulse Ox 88% ; jmb 19:10 BP 117 / 64; Pulse 118; Resp 20; Temp 101.3(O); Pulse Ox 89% on R/A; Pain 9/10; shannan 19:57 Temp 101.0(O); jmb 16:02 Body Mass Index 28.90 (71.67 kg, 157.48 cm) b 19:10 RN aware of temp shannan 19:[address] Llamas [facility] Vitals: 16:02 Log In Time: September 10, 2016 at 15:59. [facility] ED Course: 16:00 Patient visited by Palak Thorpe. [facility] 16:00 Patient moved to Waiting [facility] 16:02 Unknown, Family is Private Physician. [facility] 16:02 RN notified that patient meets Red Flag criteria. b 16:12 Patient moved to [address] [facility] 16:[address] [facility] 16:17 Patient visited by Anthony Martinez, MALDONADO. bcj 16:19 Roe Jones DO is Attending Physician. cs11 16:19 Patient visited by Roe Jones DO. cs11 16:20 The patient / caregiver is instructed regarding the plan of care and ED course. Cardiac jmb monitor on. Pulse ox on. NIBP on. 16:20 EKG done. (by ED staff). Reviewed by Roe Jones DO. dem1 16:20 Inserted saline lock: 20 gauge in right antecubital area and blood collected. The jmb patient tolerated the procedure well. Labs drawn. (by ED staff). Sent per order to lab. 16:23 Patient visited by Lalita Baeza. dem1 16:24 Patient visited by Jamar Christopher,MALDONADO. jmb 16:30 -Influenza A&B Rapid Antigen - Nose Sent. jmb 17:06 Patient visited by Jamar Christopher RN. jmb 17:23 Chest, 2 View (pa\E\lat) Returned. EDMS 17:44 Patient visited by Jamar Christopher RN. jmb 18:15 Patient visited by Jamar Christopher RN. jmb 18:42 Patient visited by Uzma Pedroza PCA. shannan 18:42 Assisted with bedpan. shannan 18:49 Patient visited by Jamar Christopher RN. jmb 19:11 Patient visited by Uzma Pedroza PCA. shannan 19:57 Discontinued lock intact, bleeding controlled, pressure dressing applied, No jmb redness/swelling at site. No procedures done that require assistance. 23:28 [facility] Payment Agreement was scanned into [employer] and attached to record. [email or web address] 09/11 09:44 T-Sheet-- Draft Copy was scanned into [employer] and attached to record. gb 09:45 ECG/EKG was scanned into [employer] and attached to record. gb 09:45 Trend VS was scanned into [employer] and attached to record. gb 20:05 EKG-ADULT Returned. EDMS Administered Medications: 09/10 17:05 Drug: Dextromethorphan-Guaifenesin 5 ml [dextromethorphan-guaifenesin 10 mg-100 mg/5 mL jmb oral liquid (5 mL)] Route: PO; 17:10 Drug: Dexamethasone 10 mg [dexamethasone 4 mg/mL injection solution] Route: IV; Rate: jmb bolus; Site: right antecubital; 17:10 Drug: Albuterol-Ipratropium 3 ml [ipratropium-albuterol 0.5 mg-3 mg(2.5 mg base)/3 mL nebulization soln (3 mL)] Route: Inhalation; 17:18 Follow up: Response: Nebulizer completed 18:47 Drug: Potassium Chloride 40 mEq [potassium chloride ER 10 mEq tablet,extended release jmb (4 tabs)] Route: PO; 18:47 Drug: morphine 4 mg [morphine 4 mg/mL intravenous cartridge (1 mL)] Route: IVP; Site: jmb right antecubital; 19:57 Not Given (Patient Refused): Acetaminophen Tablet 650 mg PO once jmb Attachments: 09:45 Trend VS gb RT: 09/10 17:13 Initial Med Neb Given as ordered Patient was instructed and evaluated on procedure sd7 Patient tolerated procedure well without adverse effect. Respiratory: Breath sounds are diminished bilaterally. Order Results: Lab Order: Basic Metabolic Profile; SPEC'M 09/10/16 16:18 Test: GLUCOSE, FASTING; Value: 131; Range: 70-105; Abnormal: Above high normal; Units: MG/DL; Status: F Test: BLOOD UREA NITROGEN; Value: 6; Range: 7-18; Abnormal: Below low normal; Units: MG/DL; Status: F Test: CREATININE FOR GFR; Value: 1.89; Range: 0.55-1.02; Abnormal: Above high normal; Units: MG/DL; Status: F Test: GLOMERULAR FILTRATION RATE; Value: 35.4; Range: >51; Abnormal: Below low normal; Status: F Test: SODIUM LEVEL; Value: 140; Range: 136-145; Units: MEQ/L; Status: F Test: POTASSIUM SERUM; Value: 3.0; Range: 3.5-5.1; Abnormal: Below low normal; Units: MEQ/L; Status: F Test: CHLORIDE LEVEL; Value: 104; Range: 98-107; Units: MEQ/L; Status: F Test: CARBON DIOXIDE LEVEL; Value: 25; Range: 21-32; Units: MEQ/L; Status: F Test: ANION GAP; Value: 11; Range: 8-16; Units: MEQ/L; Status: F Test: CALCIUM LEVEL; Value: 8.6; Range: 8.5-10.1; Units: MG/DL; Status: F Test Note: ; Units are mL/min/1.73 m2 Chronic Kidney Disease Staging per NKF: Stage I & II GFR >=60 Normal to Mildly Decreased Stage III GFR 30-59 Moderately Decreased Stage IV GFR 15-29 Severely Decreased Stage V GFR <15 Very Little GFR Left ESRD GFR <15 on ELECTRONICS MAINTENANCE TECHNICIAN Lab Order: CBC with Diff; SPEC'M 09/10/16 16:18 Test: WHITE BLOOD COUNT; Value: 8.0; Range: 4.0-10.0; Units: K/mm3; Status: F Test: RED BLOOD COUNT; Value: 4.06; Range: 4.00-5.40; Units: M/mm3; Status: F Test: HEMOGLOBIN; Value: 14.3; Range: 12.0-16.0; Units: g/dl; Status: F Test: HEMATOCRIT; Value: 42.1; Range: 36.0-47.0; Units: %; Status: F Test: MEAN CORPUSCULAR VOLUME; Value: 103.6; Range: 80.0-96.0; Abnormal: Above high normal; Units: fl; Status: F Test: MEAN CORPUSCULAR HEMOGLOBIN; Value: 35.2; Range: 27.0-33.0; Abnormal: Above high normal; Units: pg; Status: F Test: MEAN CORPUSCULAR HGB CONC; Value: 34.0; Range: 32.0-36.5; Units: g/dl; Status: F Test: RED CELL DISTRIBUTION WIDTH; Value: 13.3; Range: 11.5-14.5; Units: %; Status: F Test: PLATELET COUNT, AUTOMATED; Value: 240; Range: 150-450; Units: k/mm3; Status: F Test: NEUTROPHILS %; Value: 77.8; Range: 36.0-66.0; Abnormal: Above high normal; Units: %; Status: F Test: LYMPH %; Value: 15.5; Range: 24.0-44.0; Abnormal: Below low normal; Units: %; Status: F Test: MONO %; Value: 2.8; Range: 0.0-5.0; Units: %; Status: F Test: EOS %; Value: 1.4; Range: 0.0-3.0; Units: %; Status: F Test: BASO %; Value: 0.5; Range: 0.0-1.0; Units: %; Status: F Test: LARGE UNSTAINED CELL %; Value: 2.0; Range: 0.0-4.0; Units: %; Status: F Test: NEUTROPHILS #; Value: 6.2; Range: 1.8-7.7; Units: K/mm3; Status: F Test: LYMPH #; Value: 1.2; Range: 1.5-4.5; Abnormal: Below low normal; Units: K/mm3; Status: F Test: MONO #; Value: 0.2; Range: 0.0-0.8; Units: K/mm3; Status: F Test: EOS #; Value: 0.1; Range: 0.0-0.50; Units: K/mm3; Status: F Test: BASO #; Value: 0.0; Range: 0.0-0.2; Units: K/mm3; Status: F Test: LARGE UNSTAINED CELL #; Value: 0.2; Range: 0.0-0.4; Units: K/mm3; Status: F Lab Order: Cardiac Injury Profile; SPEC'M 09/10/16 16:18 Test: CPK CREATINE PHOSPHOKINASE; Value: 483; Range: 26-192; Abnormal: Above high normal; Units: U/L; Status: F Test: CK-MB VALUE MASS; Value: 1.0; Range: 0.0-3.6; Units: NG/ML; Status: F Test: MB/CK RELATIVE INDEX; Value: 0.20; Range: < OR =4; Status: F Test Note: ; DIAGNOSIS CRITERIA MMB ng/ml Relative Index (RI) NON-AMI < or = 5 N/A MORALES ZONE > 5 < or = 4 AMI > 5 > 4 Lab Order: Troponin; SPEC'M 09/10/16 16:18 Test: TROPONIN I; Value: < 0.02; Range: < 0.10; Units: NG/ML; Status: F Test Note: ; Troponin I Reference Interval for [employer] LOCI: 99th Percentile= 0.00-0.045 ng/ml Risk Stratification: <= 0.10 ng/ml Decreased Risk for Adverse Clinical Events. 0.10-1.50 ng/ml Increased Risk for Adverse Clinical Events. Evaluation of additional criterion and/or repeat testing in 2-6 hours is suggested to rule out myocardial damage. >= 1.50 ng/ml Indicative of Myocardial Injury. Lab Order: -Influenza A&B Rapid Antigen - Nose; SPEC'M 09/10/16 16:27 Test: INFLUENZA A RAPID SCR by ICA; Value: INFLUENZA A RESULTS NEGATIVE; Status: F Test: INFLUENZA A RAPID SCR by ICA; Value: Comments:; Status: F Test: INFLUENZA B RAPID SCR by ICA; Value: INFLUENZA B RESULTS NEGATIVE; Status: F Test Note: ; The Influenza test is a direct rapid immunoassay for the qualitative detection of Influenza viral antigen. Cell culture (Viral Culture) testing should be considered to confirm NEGATIVE results and to assist in detecting other viruses that can provide similar clinical symptoms. Please contact the lab within 24 hours ([phone]) if confirmatory testing is desired. Radiology Order: EKG-ADULT Test: EKG-ADULT REASON FOR EXAMINATION: Chest Pain; Stationary ECG Study; [facility] - ED; ; Test Date: 2016-09-10; Pat Name: AGGIE CHAMPION Department:; Room: -; Gender: F Claim Specialist: harshal; : 1960 Requested By: Tammie Acosta; Order Number: [id number] Reading MD: Tammie Acosta; Measurements; Intervals [place]; Rate: 125 P: 40; MI: 84 QRS: 37; QRSD: 82 T: 61; QT: 320; QTc: 461; Interpretive Statements; SINUS TACHYCARDIA WITH SHORT MI INTERVAL; MODERATE VOLTAGE CRITERIA FOR LVH, CONSIDER NORMAL VARIANT; POSSIBLE SEPTAL MYOCARDIAL INFARCTION, OF INDETERMINATE AGE; INCREASED RATE 06/09/16; Electronically Signed On 09-11-2016 19:46:51 EST by Tammie Acosta; Radiology Order: Chest, 2 View (pa\E\lat) Test: Chest, 2 View (pa\E\lat) REASON FOR EXAMINATION: Cough; Chest two views; ; HISTORY: Cough; ; Comparison: 06/08/2016; ; The lungs are clear. The heart is normal in size. The pulmonary vasculature is; normal in appearance. The bony structure is intact.; ; IMPRESSION: No acute disease.; ; ; Signed by; Yung Lawson MD 09/10/2016 05:03 P; Outcome: 19:05 Discharge ordered by Provider. cs11 19:57 Discharge Assessment: Patient awake, alert and oriented x 3. No cognitive and/or jmb functional deficits noted. Patient verbalized understanding of disposition instructions. Patient awake and alert. obeys commands, Oriented to person, place and time. Patient verbalized understanding of disposition instructions. Patient has no functional deficits. patient administered narcotics - no. Discharge Assessment: patient administered narcotics - yes. Pt provided with safe discharge. The following High Risk Discharge criteria are identified: None. Discharged to home ambulatory, with significant other. Condition: stable. Discharge instructions given to patient, Instructed on discharge instructions, follow up and referral plans. medication usage, Demonstrated understanding of instructions, medications, Pt was receptive of discharge instructions/ teaching. Prescriptions given X 2. No special radiology studies were completed. Property sent home with patient. 20:00 Patient left the ED. chalino Signatures: Dispatcher [employer] EDAnthony Bourgeois, RN RN Maddie Boss, Reg Reg gb Uzma Pedroza, CASHIER HOST/HOSTESS CASHIER HOST/HOSTESS Lalita Wilson1 Palak Thorpe Craig, DO DO cs11 Jamar Christopher,RN RN Neida Fernandez,RT RT sd7 Meena Carbone, Reg Reg [email or web address] Chart Complete MTDD
== END 2016-09-10 20:00 | disposition home or self-care (01) ==
LOC: M ED 15:59
DX: R07.9 Chest pain, unspecified (principal); J20.9 Acute bronchitis, unspecified; E87.6 Hypokalemia; F41.9 Anxiety disorder, unspecified; M05.40 Rheumatoid myopathy with rheumatoid arthritis of unspecified site; J45.909 Unspecified asthma, uncomplicated; M79.7 Fibromyalgia; E78.00 Pure hypercholesterolemia, unspecified; I10 Essential (primary) hypertension; G47.00 Insomnia, unspecified; M81.0 Age-related osteoporosis without current pathological fracture; Z87.891 Personal history of nicotine dependence; Z79.51 Long term (current) use of inhaled steroids; Z79.899 Other long term (current) drug therapy; Z88.6 Allergy status to analgesic agent; Z88.8 Allergy status to other drugs, medicaments and biological substances
CPT/HCPCS: 36415; 71020; 80048; 82550; 82553; 85025; 87804; 93005; 93041; 94640; 96374; 96375; 99285; J1100

== ENCOUNTER → 2016-09-20 | Outpatient (CLI) | payer OTHER ==
--- NOTE | 2016-09-20 15:11 | REPMRS ---
Patient History The patient states she had a clinical breast exam in April 2016. Patient is postmenopausal and has history of high-risk lesion on a previous biopsy at age 18. No known family history of cancer. Digital Mammo Screening Bilat: September 20, 2016 - Exam #: [id number] Bilateral CC and MLO view(s) were taken. Technologist: Adali Grant, Technologist Prior study comparison: July 07, 2015, bilateral digital mammo screening bilat performed at [facility]. June 27, 2014, bilateral digital mammo screening bilat performed at [facility]. June 29, 2013, right breast digital mammo diagnostic unilateral performed at [facility]. FINDINGS: There are scattered fibroglandular densities. There has been no change in the appearance of the mammogram from the prior studies. There is a mild amount of scattered fibroglandular density which is fairly symmetric. There is no interval development of dominant mass, architectural distortion, or clustered microcalcification suggestive of malignancy. ASSESSMENT: BI-RADS/ACR category 1 mammogram. Negative. Recommendation Routine screening mammogram in 1 year (for women over age 40). This mammogram was interpreted with the aid of an FDA-approved computer-aided dectection system. Electronically Signed By: Ciaran Bryan MD 09/20/16 [id number]
== END ==
LOC: M RAD 14:27
PROVIDERS: ATTEND Obstetrics & Gynecology Obstetrics
DX: Z12.31 Encounter for screening mammogram for malignant neoplasm of breast (principal); Z86.03 Personal history of neoplasm of uncertain behavior

== ENCOUNTER 2016-10-24 15:18 | Emergency (ER) | payer OTHER ==
[2016-10-24] MEDS ORDERED: ONDANSETRON 4MG/2ML VIAL (J2405) As Ordered ONE (16:14)
[2016-10-24 16:37] LABS: BASO % 0.5 % (0.0-1.0); EOS # 0.3 K/mm3 (0.0-0.50); EOS % 3.2 % (0.0-3.0); LARGE UNSTAINED CELL # 0.1 K/mm3 (0.0-0.4); LARGE UNSTAINED CELL % 0.9 % (0.0-4.0); LYMPH # 1.3 K/mm3 (1.5-4.5); LYMPH % 14.5 % (24.0-44.0); MEAN CORPUSCULAR HGB CONC 32.9 g/dl (32.0-36.5); MEAN CORPUSCULAR VOLUME 103.4 fl (80.0-96.0); MONO # 0.2 K/mm3 (0.0-0.8); MONO % 2.8 % (0.0-5.0); NEUTROPHILS # 6.5 K/mm3 (1.8-7.7); NEUTROPHILS % 78.1 % (36.0-66.0); PLATELET COUNT, AUTOMATED 231 k/mm3 (150-450); RED CELL DISTRIBUTION WIDTH 13.6 % (11.5-14.5); WHITE BLOOD COUNT 8.4 K/mm3 (4.0-10.0)
--- NOTE | 2016-10-24 16:38 | REP ---
Clinical: Right-sided abdominal pain. Comparison: 04/19/2016. Findings: Lung bases without acute consolidation or effusion. Liver, spleen, pancreas, bilateral adrenal glands and kidneys are normal. The patient is status post cholecystectomy. The enteric system is without obstruction or acute inflammatory process and a normal terminal ileum and appendix are identified in the right lower quadrant. Pelvis demonstrates partially collapsed normal bladder and age-appropriate uterus/adnexa. No pelvic fluid or ascites. No free air. No adenopathy. No mass lesion. Impression: No acute intra-abdominal or pelvic pathology appreciated. No free fluid. Signed by Dusty Tariq MD 10/24/2016 04:30 P
[2016-10-24 16:49] LABS: INR 0.98
[2016-10-24] MEDS ORDERED: MORPHINE 4 MG/ML 1ML SYRINGE As Ordered ONE (16:57)
[2016-10-24 16:58] LABS: ALBUMIN 3.7 GM/DL (3.2-5.2); ALBUMIN/GLOBULIN RATIO 1.12 (1.00-1.93); ALKALINE PHOSPHATASE 94 U/L (45-117); ALT/SGPT 36 U/L (12-78); AMYLASE 56 U/L (25-115); ANION GAP 9 MEQ/L (8-16); AST/SGOT 20 U/L (15-37); BILIRUBIN,DIRECT < 0.1 MG/DL (0.0-0.2); BILIRUBIN,TOTAL 0.3 MG/DL (0.2-1.0); BLOOD UREA NITROGEN 9 MG/DL (7-18); CALCIUM LEVEL 8.7 MG/DL (8.5-10.1); CARBON DIOXIDE LEVEL 26 MEQ/L (21-32); CHLORIDE LEVEL 109 MEQ/L (98-107); CREATININE FOR GFR 1.19 MG/DL (0.55-1.02); GLOMERULAR FILTRATION RATE > 60.0 (>51); GLUCOSE, FASTING 116 MG/DL (70-105); POTASSIUM SERUM 3.7 MEQ/L (3.5-5.1); SODIUM LEVEL 144 MEQ/L (136-145)
--- NOTE | 2016-10-24 18:29 | EDDOCDS ---
Physician Documentation [facility] Name: Aggie Champion Age: 56 yrs Sex: Female : 1960 Arrival Date: 10/24/2016 Time: 15:18 Bed I5 / M5 Private MD: Earl Thomas Disposition: 10/24/16 18:10 Discharged to Home/Self Care. Impression: Abdominal and pelvic pain. - Condition is Stable. - Discharge Instructions: Abdominal Pain, Adult. - Prescriptions for Zofran 4 mg Oral Tablet - take 1 tablet by ORAL route 4 times per day As needed; 10 tablet. Tramadol 50 mg Oral Tablet - take 1 tablet by ORAL route 4 times per day As needed MDD: 4 tabs; 20 tablet. - Medication Reconciliation, Local Pharmacy Hours form. - Follow up: Earl Thomas; When: 4 - 5 days; Reason: Recheck today's complaints, Continuance of care. - Problem is an ongoing problem. - Symptoms are unchanged. Historical: - Allergies: Aspirin (Upset stomach); Motrin (Upset stomach); - Home Meds: 1. Advair Diskus 100-50 mcg/dose Inhl dsdv 1 puff 2 times per day 2. amlodipine 2.5 mg Oral tab 1 tab once daily 3. Atarax Oral 25 mg twice a day as needed 4. Caltrate 600 + D 600 mg (1,500 mg)-800 unit oral susp daily 5. folic acid 1 mg Oral tab 1 tab once daily 6. furosemide 20 mg Oral tab 1 tab once daily 7. gabapentin 400 mg Oral cap twice a day 8. hydrocodone-acetaminophen 5-325 mg Oral tab three times a day as needed 9. lamotrigine 100 mg Oral TbDL 2 times per day 10. lansoprazole 30 mg oral cpDR 30 mins pior to meals 11. losartan 100 mg oral tab 1 tab once daily 12. Methotrexate (Anti-Rheumatic) 2.5 mg Oral DsPk 7 tabs once wkly 13. Ventolin HFA 90 mcg/actuation Nebulizer HFAA 2 puffs every 6 hours as needed - PMHx: Anxiety; Arthritis; Asthma; Depression; Fibromyalgia; Hypercholesterolemia; Hypertension; insomnia; Osteoporosis; Rheumatoid Arthritis; - PSHx: Hernia repair; Cholecystectomy; - Social history: Smoking status: Patient states was never smoker of tobacco. No barriers to communication noted, The patient speaks fluent Cymro, Speaks appropriately for age. - Family history: Not pertinent. - : The pt / caregiver states he / she is not on anticoagulants. Home medication list is obtained from the patient. - Exposure Risk Screening:: None identified. Vital Signs: 10/24 15:19 BP 135 / 69; Pulse 88; Resp 16; Temp 96.6(O); Pulse Ox 97% on R/A; Weight 71.21 kg / lr2 156.99 lbs (R); Height 5 ft. 2 in. (157.48 cm) (R); Pain 10/10; 18:16 BP 150 / 95; Pulse 81; Resp 18; Temp 97.6(O); Pulse Ox 97% on R/A; Pain 9/10; jml1 15:19 Body Mass Index 28.72 (71.21 kg, 157.48 cm) lr2 MDM: 16:07 NS 0.9% 1000 ml IV at 100 mL/hr continuous ordered. ke 16:07 Ondansetron 4 mg IVP once ordered. ke 16:07 IV Saline Lock ordered. ke 16:07 Undress patient appropriately for examination ordered. ke 16:09 Amylase Ordered. EDMS 16:09 Basic Metabolic Profile Ordered. EDMS 16:09 CBC with Diff Ordered. EDMS 16:09 Lipase Ordered. EDMS 16:09 Liver Profile Ordered. EDMS 16:09 Prothrombin Time Profile\E\INR Ordered. EDMS 16:09 Urinalysis Ordered. EDMS 16:09 Urine Culture Ordered. EDMS 16:09 CT ABD & PELVIS: No Contrast Ordered. EDMS 16:09 NOTHING BY MOUTH+DIET ordered. EDMS 16:55 morphine 4 mg IVP once ordered. ke 17:08 Financial registration complete. ks16 17:33 Basic Metabolic Profile Reviewed. ke 17:33 CBC with Diff Reviewed. ke 17:33 Amylase Reviewed. ke 17:33 Lipase Reviewed. ke 17:33 Liver Profile Reviewed. ke 17:33 Prothrombin Time Profile\E\INR Reviewed. ke 17:33 CT ABD & PELVIS: No Contrast Reviewed. ke 18:08 Urinalysis Reviewed. ke Administered Medications: 16:31 Drug: NS 0.9% 1000 ml [sodium chloride 0.9 % intravenous solution] Route: IV; Rate: 100 mk4 mL/hr; Site: left antecubital; 16:32 Drug: Ondansetron 4 mg Route: IVP; Site: left antecubital; mk4 17:00 Drug: morphine 4 mg [morphine 4 mg/mL intravenous cartridge (1 mL)] Route: IVP; Site: kr3 left antecubital; 17:44 Follow up: Response: Pain is unchanged, physician notified kr3 Signatures: Dispatcher [employer] EDSuhial Villarreal, GAS PLANT WORKER GAS PLANT WORKER Clement Moore RN RN mlb1 Valentina Beard RN RN mk4 Meena Carbone, [facility] Reg ks16 Coreen Van RN kr3 MTDD
--- NOTE | 2016-10-24 18:29 | EDDOCDS ---
Nurse's Notes [facility] Name: Aggie Champion Age: 56 yrs Sex: Female : 1960 Arrival Date: 10/24/2016 Time: 15:18 Bed I5 / M5 Private MD: Earl Thomas Diagnosis: Abdominal and pelvic pain Presentation: 10/24 15:20 Presenting complaint: Patient states: RLQ pain radiates to back began 2-3 days ago mlb1 denies N/V/D. Adult Sepsis Screening: The patient does not have new or worsening altered mentation. Patient's respiratory rate is less than 22. Systolic blood pressure is greater than 100. Patient has a qSOFA score of 0- Negative Sepsis Screen. Suicide/Homicide risk assessment- the patient denies having any suicidal and/or homicidal ideations and does not present with any other emotional, behavioral or mental health complaints. Status: Patient is not a food service ambassador or dependent. Transition of care: patient was not received from another setting of care. 15:20 Acuity: ROHAN Level 3 mlb1 15:20 Method Of Arrival: Walkin/Carried/Asstd mlb1 Triage Assessment: 15:22 General: Appears distressed, Behavior is appropriate for age, cooperative. Pain: mlb1 Location: right lower quadrant Pain currently is 10 out of 10 on a pain scale. Pain: Pain radiates to right low back. HIV screening NA for this visit Offered previously. Historical: - Allergies: Aspirin (Upset stomach); Motrin (Upset stomach); - Home Meds: 1. Advair Diskus 100-50 mcg/dose Inhl dsdv 1 puff 2 times per day 2. amlodipine 2.5 mg Oral tab 1 tab once daily 3. Atarax Oral 25 mg twice a day as needed 4. Caltrate 600 + D 600 mg (1,500 mg)-800 unit oral susp daily 5. folic acid 1 mg Oral tab 1 tab once daily 6. furosemide 20 mg Oral tab 1 tab once daily 7. gabapentin 400 mg Oral cap twice a day 8. hydrocodone-acetaminophen 5-325 mg Oral tab three times a day as needed 9. lamotrigine 100 mg Oral TbDL 2 times per day 10. lansoprazole 30 mg oral cpDR 30 mins pior to meals 11. losartan 100 mg oral tab 1 tab once daily 12. Methotrexate (Anti-Rheumatic) 2.5 mg Oral DsPk 7 tabs once wkly 13. Ventolin HFA 90 mcg/actuation Nebulizer HFAA 2 puffs every 6 hours as needed - PMHx: Anxiety; Arthritis; Asthma; Depression; Fibromyalgia; Hypercholesterolemia; Hypertension; insomnia; Osteoporosis; Rheumatoid Arthritis; - PSHx: Hernia repair; Cholecystectomy; - Social history: Smoking status: Patient states was never smoker of tobacco. No barriers to communication noted, The patient speaks fluent Georgian, Speaks appropriately for age. - Family history: Not pertinent. - : The pt / caregiver states he / she is not on anticoagulants. Home medication list is obtained from the patient. - Exposure Risk Screening:: None identified. Screenin:32 Screening information is obtained from the patient. Fall risk: No risks identified. mk4 Assistance ADL's: requires no assistance with activities of daily living. Abuse/DV Screen: The patient / caregiver reports he/she is: not in a situation that causes fear, pain or injury. Nutritional screening: No deficits noted. Advance Directives: Currently, there is no health care proxy. There is no active DNR order. There is no living will. There is no Power of In Store Representative. Advance directive information has not previously been placed in an [facility] medical record. home support is adequate. Assessment: 16:32 General: Appears uncomfortable, Behavior is anxious, cooperative. Pain: Location: right mk4 flank Pain currently is 10 out of 10 on a pain scale. GI: Abdomen is obese, Bowel sounds present X 4 quads. Abd is tender to palpation in right upper quadrant and right lower quadrant. 17:01 Reassessment: Patient appears in no apparent distress at this time. Reassessment: kr3 talking on phone. Pain: Location: right lower quadrant Pain currently is 10 out of 10 on a pain scale. 17:44 Reassessment: patient reminded of NPO status. kr3 18:24 General: Appears in no apparent distress, Behavior is cooperative, pt states pain 10/10 mk4 but jumps out of bed and starts eating a sub her brought in immed immed upon discharge, states they need to find out what is wrong with me . Vital Signs: 15:19 BP 135 / 69; Pulse 88; Resp 16; Temp 96.6(O); Pulse Ox 97% on R/A; Weight 71.21 kg (R); lr2 Height 5 ft. 2 in. (157.48 cm) (R); Pain 10/10; 18:16 BP 150 / 95; Pulse 81; Resp 18; Temp 97.6(O); Pulse Ox 97% on R/A; Pain 9/10; jml1 15:19 Body Mass Index 28.72 (71.21 kg, 157.48 cm) lr2 Vitals: 15:19 Log In Time: October 24, 2016 at 15:18. lr2 ED Course: 15:19 Patient visited by Steff Lazcano. lr2 15:19 Earl Thomas is Private Physician. lr2 15:19 Patient moved to Waiting lr2 15:19 Patient moved to Pre RCE lr2 15:20 Patient visited by Clement Burgess, MALDONADO. mlb1 15:21 Triage Initiated mlb1 15:22 Patient visited by Clement Burgess, MALDONADO. mlb1 15:42 Patient moved to Triage 1 jo3 16:02 [facility]hail [facility] FNP [facility]. ke 16:02 Patient visited by Suhail Garcia FNP. ke 16:02 Patient visited by Suhail Garcia FNP. ke 16:08 Patient moved to I5 / ck1 16:32 The patient / caregiver is instructed regarding the plan of care and ED course. mk4 16:32 Inserted saline lock: 20 gauge in left antecubital area and blood collected. mk4 16:35 Patient visited by Suhail Garcia FNP. ke 16:36 No procedures done that require assistance. mk4 17:05 Patient visited by Suhail Garcia FNP. ke 17:21 CT ABD & PELVIS: No Contrast Returned. EDMS 17:36 Patient visited by Valentina Beard RN. mk4 17:44 Urinalysis Sent. kr3 17:44 Urine Culture Sent. kr3 18:09 Earl Thomas is Referral Physician. ke 18:17 Patient visited by Percy Sherwood. jml1 18:24 Discontinued IV lock bleeding controlled, pressure dressing applied. mk4 Administered Medications: 16:31 Drug: NS 0.9% 1000 ml [sodium chloride 0.9 % intravenous solution] Route: IV; Rate: 100 mk4 mL/hr; Site: left antecubital; 16:32 Drug: Ondansetron 4 mg Route: IVP; Site: left antecubital; mk4 17:00 Drug: morphine 4 mg [morphine 4 mg/mL intravenous cartridge (1 mL)] Route: IVP; Site: kr3 left antecubital; 17:44 Follow up: Response: Pain is unchanged, physician notified kr3 Order Results: Lab Order: Amylase; SPEC' 10/24/16 16:10 Test: AMYLASE; Value: 56; Range: 25-115; Units: U/L; Status: F Lab Order: Basic Metabolic Profile; [facility]' 10/24/16 16:10 Test: GLUCOSE, FASTING; Value: 116; Range: 70-105; Abnormal: Above high normal; Units: MG/DL; Status: F Test: BLOOD UREA NITROGEN; Value: 9; Range: 7-18; Units: MG/DL; Status: F Test: CREATININE FOR GFR; Value: 1.19; Range: 0.55-1.02; Abnormal: Above high normal; Units: MG/DL; Status: F Test: GLOMERULAR FILTRATION RATE; Value: > 60.0; Range: >51; Status: F Test: SODIUM LEVEL; Value: 144; Range: 136-145; Units: MEQ/L; Status: F Test: POTASSIUM SERUM; Value: 3.7; Range: 3.5-5.1; Units: MEQ/L; Status: F Test: CHLORIDE LEVEL; Value: 109; Range: 98-107; Abnormal: Above high normal; Units: MEQ/L; Status: F Test: CARBON DIOXIDE LEVEL; Value: 26; Range: 21-32; Units: MEQ/L; Status: F Test: ANION GAP; Value: 9; Range: 8-16; Units: MEQ/L; Status: F Test: CALCIUM LEVEL; Value: 8.7; Range: 8.5-10.1; Units: MG/DL; Status: F Test Note: ; Units are mL/min/1.73 m2 Chronic Kidney Disease Staging per NKF: Stage I & II GFR >=60 Normal to Mildly Decreased Stage III GFR 30-59 Moderately Decreased Stage IV GFR 15-29 Severely Decreased Stage V GFR <15 Very Little GFR Left ESRD GFR <15 on CERTIFIED NURSE AIDE Lab Order: CBC with Diff; SPEC' 10/24/16 16:10 Test: WHITE BLOOD COUNT; Value: 8.4; Range: 4.0-10.0; Units: K/mm3; Status: F Test: RED BLOOD COUNT; Value: 3.75; Range: 4.00-5.40; Abnormal: Below low normal; Units: M/mm3; Status: F Test: HEMOGLOBIN; Value: 12.8; Range: 12.0-16.0; Units: g/dl; Status: F Test: HEMATOCRIT; Value: 38.8; Range: 36.0-47.0; Units: %; Status: F Test: MEAN CORPUSCULAR VOLUME; Value: 103.4; Range: 80.0-96.0; Abnormal: Above high normal; Units: fl; Status: F Test: MEAN CORPUSCULAR HEMOGLOBIN; Value: 34.0; Range: 27.0-33.0; Abnormal: Above high normal; Units: pg; Status: F Test: MEAN CORPUSCULAR HGB CONC; Value: 32.9; Range: 32.0-36.5; Units: g/dl; Status: F Test: RED CELL DISTRIBUTION WIDTH; Value: 13.6; Range: 11.5-14.5; Units: %; Status: F Test: PLATELET COUNT, AUTOMATED; Value: 231; Range: 150-450; Units: k/mm3; Status: F Test: NEUTROPHILS %; Value: 78.1; Range: 36.0-66.0; Abnormal: Above high normal; Units: %; Status: F Test: LYMPH %; Value: 14.5; Range: 24.0-44.0; Abnormal: Below low normal; Units: %; Status: F Test: MONO %; Value: 2.8; Range: 0.0-5.0; Units: %; Status: F Test: EOS %; Value: 3.2; Range: 0.0-3.0; Abnormal: Above high normal; Units: %; Status: F Test: BASO %; Value: 0.5; Range: 0.0-1.0; Units: %; Status: F Test: LARGE UNSTAINED CELL %; Value: 0.9; Range: 0.0-4.0; Units: %; Status: F Test: NEUTROPHILS #; Value: 6.5; Range: 1.8-7.7; Units: K/mm3; Status: F Test: LYMPH #; Value: 1.3; Range: 1.5-4.5; Abnormal: Below low normal; Units: K/mm3; Status: F Test: MONO #; Value: 0.2; Range: 0.0-0.8; Units: K/mm3; Status: F Test: EOS #; Value: 0.3; Range: 0.0-0.50; Units: K/mm3; Status: F Test: BASO #; Value: 0.0; Range: 0.0-0.2; Units: K/mm3; Status: F Test: LARGE UNSTAINED CELL #; Value: 0.1; Range: 0.0-0.4; Units: K/mm3; Status: F Lab Order: Lipase; [facility] 10/24/16 16:10 Test: LIPASE; Value: 158; Range: 73-393; Units: U/L; Status: F Lab Order: Liver Profile; [facility] 10/24/16 16:10 Test: AST/SGOT; Value: 20; Range: 15-37; Units: U/L; Status: F Test: ALT/SGPT; Value: 36; Range: 12-78; Units: U/L; Status: F Test: ALKALINE PHOSPHATASE; Value: 94; Range: 45-117; Units: U/L; Status: F Test: BILIRUBIN,TOTAL; Value: 0.3; Range: 0.2-1.0; Units: MG/DL; Status: F Test: BILIRUBIN,DIRECT; Value: < 0.1; Range: 0.0-0.2; Units: MG/DL; Status: F Test: TOTAL PROTEIN; Value: 7.0; Range: 6.4-8.2; Units: GM/DL; Status: F Test: ALBUMIN; Value: 3.7; Range: 3.2-5.2; Units: GM/DL; Status: F Test: ALBUMIN/GLOBULIN RATIO; Value: 1.12; Range: 1.00-1.93; Status: F Lab Order: Prothrombin Time Profile\E\INR; [facility] 10/24/16 16:10 Test: PROTHROMBIN TIME; Value: 13.1; Range: 12.3-14.5; Units: SECONDS; Status: F Test: INR; Value: 0.98; Status: F Test Note: ; THERAPUTIC HUMAN INR VALUES INDICATIONS NORMAL RANGES PROPHYLAXIS/TREATMENT OF: VENOUS THROMBOSIS 2.0-3.0 PULMONARY EMBOLISM 2.0-3.0 PREVENTION OF SYSTEMIC EMBOLISM FROM: TISSUE HEART VALVES 2.0-3.0 ACUTE MYOCARDIAL INFARCTION 2.0-3.0 VALVULAR HEART DISEASE 2.0-3.0 ATRIAL FIBRILLATION 2.0-3.0 MECHANICAL VALVES(HIGH RISK) 2.5-3.5 RECURRENT MYOCARDIAL INFARCTION 2.5-3.5 Lab Order: Urinalysis; SPEC'M 10/24/16 16:10 Test: APPEARANCE, URINE; Value: CLEAR; Range: CLEAR; Status: F Test: COLOR, URINE; Value: YELLOW; Range: YELLOW; Status: F Test: PH,URINE; Value: 6.0; Range: 5.0-9.0; Units: UNITS; Status: F Test: SPECIFIC GRAVITY URINE AUTO; Value: 1.018; Range: 1.002-1.035; Status: F Test: PROTEIN, URINE AUTO; Value: NEGATIVE; Range: NEGATIVE; Units: mg/dL; Status: F Test: GLUCOSE, URINE (UA) AUTO; Value: NEGATIVE; Range: NEGATIVE; Units: mg/dL; Status: F Test: KETONE, URINE AUTO; Value: NEGATIVE; Range: NEGATIVE; Units: mg/dL; Status: F Test: UROBILINOGEN, URINE AUTO; Value: 0.2; Range: 0.0-2.0; Units: mg/dL; Status: F Test: BILIRUBIN, URINE AUTO; Value: NEGATIVE; Range: NEGATIVE; Status: F Test: NITRITE, URINE AUTO; Value: NEGATIVE; Range: NEGATIVE; Status: F Test: LEUKOCYTE ESTERASE, URINE AUTO; Value: NEGATIVE; Range: NEGATIVE; Status: F Test: BLOOD, URINE BLOOD; Value: NEGATIVE; Range: NEGATIVE; Status: F Test: WBC, URINE AUTO; Value: 2; Range: 0-3; Units: /HPF; Status: F Test: RBC, URINE AUTO; Value: 1; Range: 0-3; Units: /HPF; Status: F Test: BACTERIA, URINE AUTO; Value: NEGATIVE; Range: NEGATIVE; Status: F Test: SQUAMOUS EPITHELIAL CELL UR AU; Value: 1; Range: 0-6; Units: /HPF; Status: F Test: MUCUS, URINE; Value: SMALL; Range: NEGATIVE; Status: F Test: HYALINE CAST, URINE AUTO; Value: 0; Range: 0-1; Units: /LPF; Status: F Radiology Order: CT ABD & PELVIS: No Contrast Test: CT ABD & PELVIS: No Contrast REASON FOR EXAMINATION: Abdomen Pain; Clinical: Right-sided abdominal pain.; ; Comparison: 04/19/2016.; ; Findings:; Lung bases without acute consolidation or effusion.; ; Liver, spleen, pancreas, bilateral adrenal glands and kidneys are normal. The; patient is status post cholecystectomy. The enteric system is without; obstruction or acute inflammatory process and a normal terminal ileum and; appendix are identified in the right lower quadrant. Pelvis demonstrates; partially collapsed normal bladder and age-appropriate uterus/adnexa. No pelvic; fluid or ascites. No free air. No adenopathy. No mass lesion.; ; Impression:; No acute intra-abdominal or pelvic pathology appreciated.; No free fluid.; ; ; Signed by; Dusty Tariq MD 10/24/2016 04:30 P; Outcome: 17:02 CT Study completed. kr3 18:10 Discharge ordered by Provider. francisco 18:24 Discharge Assessment: Patient awake, alert and oriented x 3. No cognitive and/or mk4 functional deficits noted. Patient verbalized understanding of disposition instructions. Patient awake and alert. Discharge Assessment: patient administered narcotics - no. The following High Risk Discharge criteria are identified: None. Condition: good. Property sent home with patient. 18:28 Patient left the ED. mk4 Signatures: Dispatcher [employer] EDMS Suhail Garcia, FROG CATCHER Clement Suggs RN RN mlb1 Melissa AlvaresRN RN ck1 Coreen VanRN RN kr3 Mariah RasconRN RN Percy Dickersonl1 Valentina Beard RN RN ravi4 Steff Lazcano2 MTDD
--- NOTE | 2016-10-26 19:29 | EDDOCDS ---
Nurse's Notes [facility] Name: Aggie Champion Age: 56 yrs Sex: Female : 1960 Arrival Date: 10/24/2016 Time: 15:18 Bed I5 / M5 Private MD: Earl Thomas Diagnosis: Abdominal and pelvic pain Presentation: 10/24 15:20 Presenting complaint: Patient states: RLQ pain radiates to back began 2-3 days ago mlb1 denies N/V/D. Adult Sepsis Screening: The patient does not have new or worsening altered mentation. Patient's respiratory rate is less than 22. Systolic blood pressure is greater than 100. Patient has a qSOFA score of 0- Negative Sepsis Screen. Suicide/Homicide risk assessment- the patient denies having any suicidal and/or homicidal ideations and does not present with any other emotional, behavioral or mental health complaints. Status: Patient is not a service desk agent or dependent. Transition of care: patient was not received from another setting of care. 15:20 Acuity: ROHAN Level 3 mlb1 15:20 Method Of Arrival: Walkin/Carried/Asstd mlb1 Triage Assessment: 15:22 General: Appears distressed, Behavior is appropriate for age, cooperative. Pain: mlb1 Location: right lower quadrant Pain currently is 10 out of 10 on a pain scale. Pain: Pain radiates to right low back. HIV screening NA for this visit Offered previously. Historical: - Allergies: Aspirin (Upset stomach); Motrin (Upset stomach); - Home Meds: 1. Advair Diskus 100-50 mcg/dose Inhl dsdv 1 puff 2 times per day 2. amlodipine 2.5 mg Oral tab 1 tab once daily 3. Atarax Oral 25 mg twice a day as needed 4. Caltrate 600 + D 600 mg (1,500 mg)-800 unit oral susp daily 5. folic acid 1 mg Oral tab 1 tab once daily 6. furosemide 20 mg Oral tab 1 tab once daily 7. gabapentin 400 mg Oral cap twice a day 8. hydrocodone-acetaminophen 5-325 mg Oral tab three times a day as needed 9. lamotrigine 100 mg Oral TbDL 2 times per day 10. lansoprazole 30 mg oral cpDR 30 mins pior to meals 11. losartan 100 mg oral tab 1 tab once daily 12. Methotrexate (Anti-Rheumatic) 2.5 mg Oral DsPk 7 tabs once wkly 13. Ventolin HFA 90 mcg/actuation Nebulizer HFAA 2 puffs every 6 hours as needed - PMHx: Anxiety; Arthritis; Asthma; Depression; Fibromyalgia; Hypercholesterolemia; Hypertension; insomnia; Osteoporosis; Rheumatoid Arthritis; - PSHx: Hernia repair; Cholecystectomy; - Social history: Smoking status: Patient states was never smoker of tobacco. No barriers to communication noted, The patient speaks fluent Tunisian, Speaks appropriately for age. - Family history: Not pertinent. - : The pt / caregiver states he / she is not on anticoagulants. Home medication list is obtained from the patient. - Exposure Risk Screening:: None identified. Screenin:32 Screening information is obtained from the patient. Fall risk: No risks identified. mk4 Assistance ADL's: requires no assistance with activities of daily living. Abuse/DV Screen: The patient / caregiver reports he/she is: not in a situation that causes fear, pain or injury. Nutritional screening: No deficits noted. Advance Directives: Currently, there is no health care proxy. There is no active DNR order. There is no living will. There is no Power of Building Mechanic. Advance directive information has not previously been placed in an [facility] medical record. home support is adequate. Assessment: 16:32 General: Appears uncomfortable, Behavior is anxious, cooperative. Pain: Location: right mk4 flank Pain currently is 10 out of 10 on a pain scale. GI: Abdomen is obese, Bowel sounds present X 4 quads. Abd is tender to palpation in right upper quadrant and right lower quadrant. 17:01 Reassessment: Patient appears in no apparent distress at this time. Reassessment: kr3 talking on phone. Pain: Location: right lower quadrant Pain currently is 10 out of 10 on a pain scale. 17:44 Reassessment: patient reminded of NPO status. kr3 18:24 General: Appears in no apparent distress, Behavior is cooperative, pt states pain 10/10 mk4 but jumps out of bed and starts eating a sub her brought in immed immed upon discharge, states they need to find out what is wrong with me . Vital Signs: 15:19 BP 135 / 69; Pulse 88; Resp 16; Temp 96.6(O); Pulse Ox 97% on R/A; Weight 71.21 kg (R); lr2 Height 5 ft. 2 in. (157.48 cm) (R); Pain 10/10; 18:16 BP 150 / 95; Pulse 81; Resp 18; Temp 97.6(O); Pulse Ox 97% on R/A; Pain 9/10; jml1 15:19 Body Mass Index 28.72 (71.21 kg, 157.48 cm) lr2 Vitals: 15:19 Log In Time: October 24, 2016 at 15:18. lr2 ED Course: 15:19 Patient visited by Steff Lazcano. lr2 15:19 Earl Thomas is Private Physician. lr2 15:19 Patient moved to Waiting lr2 15:19 Patient moved to Pre RCE lr2 15:20 Patient visited by Clement Burgess, MALDONADO. mlb1 15:21 Triage Initiated mlb1 15:22 Patient visited by Clement Burgess, MALDONADO. mlb1 15:42 Patient moved to Triage 1 jo3 16:02 [facility] ke 16:02 Patient visited by Suhail Garcia FNP. ke 16:02 Patient visited by Suhail Garcia FNP. ke 16:08 Patient moved to I5 / ck1 16:32 The patient / caregiver is instructed regarding the plan of care and ED course. mk4 16:32 Inserted saline lock: 20 gauge in left antecubital area and blood collected. mk4 16:35 Patient visited by Suhail Garcia FNP. ke 16:36 No procedures done that require assistance. mk4 17:05 Patient visited by Suhail Garcia FNP. ke 17:21 CT ABD & PELVIS: No Contrast Returned. EDMS 17:36 Patient visited by Valentina Beard RN. mk4 17:44 Urinalysis Sent. kr3 17:44 Urine Culture Sent. kr3 18:09 Earl Thomas is Referral Physician. ke 18:17 Patient visited by Percy Sherwood. jml1 18:24 Discontinued IV lock bleeding controlled, pressure dressing applied. mk4 19:00 [facility] Payment Agreement was scanned into [employer] and attached to record. ks16 10/25 10:22 T-Sheet-- Draft Copy was scanned into [employer] and attached to record. gb Administered Medications: 10/24 16:31 Drug: NS 0.9% 1000 ml [sodium chloride 0.9 % intravenous solution] Route: IV; Rate: 100 mk4 mL/hr; Site: left antecubital; 16:32 Drug: Ondansetron 4 mg Route: IVP; Site: left antecubital; mk4 17:00 Drug: morphine 4 mg [morphine 4 mg/mL intravenous cartridge (1 mL)] Route: IVP; Site: kr3 left antecubital; 17:44 Follow up: Response: Pain is unchanged, physician notified kr3 Order Results: Lab Order: Amylase; SPEC'M 10/24/16 16:10 Test: AMYLASE; Value: 56; Range: 25-115; Units: U/L; Status: F Lab Order: Basic Metabolic Profile; SPEC'M 10/24/16 16:10 Test: GLUCOSE, FASTING; Value: 116; Range: 70-105; Abnormal: Above high normal; Units: MG/DL; Status: F Test: BLOOD UREA NITROGEN; Value: 9; Range: 7-18; Units: MG/DL; Status: F Test: CREATININE FOR GFR; Value: 1.19; Range: 0.55-1.02; Abnormal: Above high normal; Units: MG/DL; Status: F Test: GLOMERULAR FILTRATION RATE; Value: > 60.0; Range: >51; Status: F Test: SODIUM LEVEL; Value: 144; Range: 136-145; Units: MEQ/L; Status: F Test: POTASSIUM SERUM; Value: 3.7; Range: 3.5-5.1; Units: MEQ/L; Status: F Test: CHLORIDE LEVEL; Value: 109; Range: 98-107; Abnormal: Above high normal; Units: MEQ/L; Status: F Test: CARBON DIOXIDE LEVEL; Value: 26; Range: 21-32; Units: MEQ/L; Status: F Test: ANION GAP; Value: 9; Range: 8-16; Units: MEQ/L; Status: F Test: CALCIUM LEVEL; Value: 8.7; Range: 8.5-10.1; Units: MG/DL; Status: F Test Note: ; Units are mL/min/1.73 m2 Chronic Kidney Disease Staging per NKF: Stage I & II GFR >=60 Normal to Mildly Decreased Stage III GFR 30-59 Moderately Decreased Stage IV GFR 15-29 Severely Decreased Stage V GFR <15 Very Little GFR Left ESRD GFR <15 on PROTECTIVE SIGNAL OPERATOR Lab Order: CBC with Diff; VIBHA'M 10/24/16 16:10 Test: WHITE BLOOD COUNT; Value: 8.4; Range: 4.0-10.0; Units: K/mm3; Status: F Test: RED BLOOD COUNT; Value: 3.75; Range: 4.00-5.40; Abnormal: Below low normal; Units: M/mm3; Status: F Test: HEMOGLOBIN; Value: 12.8; Range: 12.0-16.0; Units: g/dl; Status: F Test: HEMATOCRIT; Value: 38.8; Range: 36.0-47.0; Units: %; Status: F Test: MEAN CORPUSCULAR VOLUME; Value: 103.4; Range: 80.0-96.0; Abnormal: Above high normal; Units: fl; Status: F Test: MEAN CORPUSCULAR HEMOGLOBIN; Value: 34.0; Range: 27.0-33.0; Abnormal: Above high normal; Units: pg; Status: F Test: MEAN CORPUSCULAR HGB CONC; Value: 32.9; Range: 32.0-36.5; Units: g/dl; Status: F Test: RED CELL DISTRIBUTION WIDTH; Value: 13.6; Range: 11.5-14.5; Units: %; Status: F Test: PLATELET COUNT, AUTOMATED; Value: 231; Range: 150-450; Units: k/mm3; Status: F Test: NEUTROPHILS %; Value: 78.1; Range: 36.0-66.0; Abnormal: Above high normal; Units: %; Status: F Test: LYMPH %; Value: 14.5; Range: 24.0-44.0; Abnormal: Below low normal; Units: %; Status: F Test: MONO %; Value: 2.8; Range: 0.0-5.0; Units: %; Status: F Test: EOS %; Value: 3.2; Range: 0.0-3.0; Abnormal: Above high normal; Units: %; Status: F Test: BASO %; Value: 0.5; Range: 0.0-1.0; Units: %; Status: F Test: LARGE UNSTAINED CELL %; Value: 0.9; Range: 0.0-4.0; Units: %; Status: F Test: NEUTROPHILS #; Value: 6.5; Range: 1.8-7.7; Units: K/mm3; Status: F Test: LYMPH #; Value: 1.3; Range: 1.5-4.5; Abnormal: Below low normal; Units: K/mm3; Status: F Test: MONO #; Value: 0.2; Range: 0.0-0.8; Units: K/mm3; Status: F Test: EOS #; Value: 0.3; Range: 0.0-0.50; Units: K/mm3; Status: F Test: BASO #; Value: 0.0; Range: 0.0-0.2; Units: K/mm3; Status: F Test: LARGE UNSTAINED CELL #; Value: 0.1; Range: 0.0-0.4; Units: K/mm3; Status: F Lab Order: Lipase; SPEC' 10/24/16 16:10 Test: LIPASE; Value: 158; Range: 73-393; Units: U/L; Status: F Lab Order: Liver Profile; SPEC' 10/24/16 16:10 Test: AST/SGOT; Value: 20; Range: 15-37; Units: U/L; Status: F Test: ALT/SGPT; Value: 36; Range: 12-78; Units: U/L; Status: F Test: ALKALINE PHOSPHATASE; Value: 94; Range: 45-117; Units: U/L; Status: F Test: BILIRUBIN,TOTAL; Value: 0.3; Range: 0.2-1.0; Units: MG/DL; Status: F Test: BILIRUBIN,DIRECT; Value: < 0.1; Range: 0.0-0.2; Units: MG/DL; Status: F Test: TOTAL PROTEIN; Value: 7.0; Range: 6.4-8.2; Units: GM/DL; Status: F Test: ALBUMIN; Value: 3.7; Range: 3.2-5.2; Units: GM/DL; Status: F Test: ALBUMIN/GLOBULIN RATIO; Value: 1.12; Range: 1.00-1.93; Status: F Lab Order: Prothrombin Time Profile\E\INR; SPEC'M 10/24/16 16:10 Test: PROTHROMBIN TIME; Value: 13.1; Range: 12.3-14.5; Units: SECONDS; Status: F Test: INR; Value: 0.98; Status: F Test Note: ; THERAPUTIC HUMAN INR VALUES INDICATIONS NORMAL RANGES PROPHYLAXIS/TREATMENT OF: VENOUS THROMBOSIS 2.0-3.0 PULMONARY EMBOLISM 2.0-3.0 PREVENTION OF SYSTEMIC EMBOLISM FROM: TISSUE HEART VALVES 2.0-3.0 ACUTE MYOCARDIAL INFARCTION 2.0-3.0 VALVULAR HEART DISEASE 2.0-3.0 ATRIAL FIBRILLATION 2.0-3.0 MECHANICAL VALVES(HIGH RISK) 2.5-3.5 RECURRENT MYOCARDIAL INFARCTION 2.5-3.5 Lab Order: Urinalysis; SPEC'M 10/24/16 16:10 Test: APPEARANCE, URINE; Value: CLEAR; Range: CLEAR; Status: F Test: COLOR, URINE; Value: YELLOW; Range: YELLOW; Status: F Test: PH,URINE; Value: 6.0; Range: 5.0-9.0; Units: UNITS; Status: F Test: SPECIFIC GRAVITY URINE AUTO; Value: 1.018; Range: 1.002-1.035; Status: F Test: PROTEIN, URINE AUTO; Value: NEGATIVE; Range: NEGATIVE; Units: mg/dL; Status: F Test: GLUCOSE, URINE (UA) AUTO; Value: NEGATIVE; Range: NEGATIVE; Units: mg/dL; Status: F Test: KETONE, URINE AUTO; Value: NEGATIVE; Range: NEGATIVE; Units: mg/dL; Status: F Test: UROBILINOGEN, URINE AUTO; Value: 0.2; Range: 0.0-2.0; Units: mg/dL; Status: F Test: BILIRUBIN, URINE AUTO; Value: NEGATIVE; Range: NEGATIVE; Status: F Test: NITRITE, URINE AUTO; Value: NEGATIVE; Range: NEGATIVE; Status: F Test: LEUKOCYTE ESTERASE, URINE AUTO; Value: NEGATIVE; Range: NEGATIVE; Status: F Test: BLOOD, URINE BLOOD; Value: NEGATIVE; Range: NEGATIVE; Status: F Test: WBC, URINE AUTO; Value: 2; Range: 0-3; Units: /HPF; Status: F Test: RBC, URINE AUTO; Value: 1; Range: 0-3; Units: /HPF; Status: F Test: BACTERIA, URINE AUTO; Value: NEGATIVE; Range: NEGATIVE; Status: F Test: SQUAMOUS EPITHELIAL CELL UR AU; Value: 1; Range: 0-6; Units: /HPF; Status: F Test: MUCUS, URINE; Value: SMALL; Range: NEGATIVE; Status: F Test: HYALINE CAST, URINE AUTO; Value: 0; Range: 0-1; Units: /LPF; Status: F Lab Order: Urine Culture; SPEC'M 10/24/16 16:10 Test: URINE CULTURE; Value: <EXTERNAL COMMENT eCWMed> FULL REPORT IN LAB NOTES (eCW and Medent).; Status: F Test: URINE CULTURE; Value: URINE CULTURE RESULT NO GROWTH; Status: F Radiology Order: CT ABD & PELVIS: No Contrast Test: CT ABD & PELVIS: No Contrast REASON FOR EXAMINATION: Abdomen Pain; Clinical: Right-sided abdominal pain.; ; Comparison: 04/19/2016.; ; Findings:; Lung bases without acute consolidation or effusion.; ; Liver, spleen, pancreas, bilateral adrenal glands and kidneys are normal. The; patient is status post cholecystectomy. The enteric system is without; obstruction or acute inflammatory process and a normal terminal ileum and; appendix are identified in the right lower quadrant. Pelvis demonstrates; partially collapsed normal bladder and age-appropriate uterus/adnexa. No pelvic; fluid or ascites. No free air. No adenopathy. No mass lesion.; ; Impression:; No acute intra-abdominal or pelvic pathology appreciated.; No free fluid.; ; ; Signed by; Dusty Tariq MD 10/24/2016 04:30 P; Outcome: 17:02 CT Study completed. kr3 18:10 Discharge ordered by Provider. ke 18:24 Discharge Assessment: Patient awake, alert and oriented x 3. No cognitive and/or mk4 functional deficits noted. Patient verbalized understanding of disposition instructions. Patient awake and alert. Discharge Assessment: patient administered narcotics - no. The following High Risk Discharge criteria are identified: None. Condition: good. Property sent home with patient. 18:28 Patient left the ED. mk4 Signatures: Dispatcher [employer] EDMS Maddie Monk, Reg Reg gb Suhail Garcia, SCAFFOLD BUILDER SCAFFOLD BUILDER Clement Moore RN RN mlb1 Melissa Alvares RN RN ck1 Coreen Van,RN RN kr3 Mariah Rascon,RN RN konrad3 Percy Sherwoodl1 Valentina Beard, RN RN ravi4 Meena Carbone, [facility] Reg ks16 Steff Lazcano2 Chart Complete MTDD
--- NOTE | 2016-10-26 19:29 | EDDOCDS ---
Physician Documentation [facility] Name: Aggie Champion Age: 56 yrs Sex: Female : 1960 Arrival Date: 10/24/2016 Time: 15:18 Bed I5 / M5 Private MD: Earl Thomas Disposition: 10/24/16 18:10 Discharged to Home/Self Care. Impression: Abdominal and pelvic pain. - Condition is Stable. - Discharge Instructions: Abdominal Pain, Adult. - Prescriptions for Zofran 4 mg Oral Tablet - take 1 tablet by ORAL route 4 times per day As needed; 10 tablet. Tramadol 50 mg Oral Tablet - take 1 tablet by ORAL route 4 times per day As needed MDD: 4 tabs; 20 tablet. - Medication Reconciliation, Local Pharmacy Hours form. - Follow up: Earl Thomas; When: 4 - 5 days; Reason: Recheck today's complaints, Continuance of care. - Problem is an ongoing problem. - Symptoms are unchanged. Historical: - Allergies: Aspirin (Upset stomach); Motrin (Upset stomach); - Home Meds: 1. Advair Diskus 100-50 mcg/dose Inhl dsdv 1 puff 2 times per day 2. amlodipine 2.5 mg Oral tab 1 tab once daily 3. Atarax Oral 25 mg twice a day as needed 4. Caltrate 600 + D 600 mg (1,500 mg)-800 unit oral susp daily 5. folic acid 1 mg Oral tab 1 tab once daily 6. furosemide 20 mg Oral tab 1 tab once daily 7. gabapentin 400 mg Oral cap twice a day 8. hydrocodone-acetaminophen 5-325 mg Oral tab three times a day as needed 9. lamotrigine 100 mg Oral TbDL 2 times per day 10. lansoprazole 30 mg oral cpDR 30 mins pior to meals 11. losartan 100 mg oral tab 1 tab once daily 12. Methotrexate (Anti-Rheumatic) 2.5 mg Oral DsPk 7 tabs once wkly 13. Ventolin HFA 90 mcg/actuation Nebulizer HFAA 2 puffs every 6 hours as needed - PMHx: Anxiety; Arthritis; Asthma; Depression; Fibromyalgia; Hypercholesterolemia; Hypertension; insomnia; Osteoporosis; Rheumatoid Arthritis; - PSHx: Hernia repair; Cholecystectomy; - Social history: Smoking status: Patient states was never smoker of tobacco. No barriers to communication noted, The patient speaks fluent Chinese, Speaks appropriately for age. - Family history: Not pertinent. - : The pt / caregiver states he / she is not on anticoagulants. Home medication list is obtained from the patient. - Exposure Risk Screening:: None identified. Vital Signs: 10/24 15:19 BP 135 / 69; Pulse 88; Resp 16; Temp 96.6(O); Pulse Ox 97% on R/A; Weight 71.21 kg / lr2 156.99 lbs (R); Height 5 ft. 2 in. (157.48 cm) (R); Pain 10/10; 18:16 BP 150 / 95; Pulse 81; Resp 18; Temp 97.6(O); Pulse Ox 97% on R/A; Pain 9/10; jml1 15:19 Body Mass Index 28.72 (71.21 kg, 157.48 cm) lr2 MDM: 16:07 NS 0.9% 1000 ml IV at 100 mL/hr continuous ordered. ke 16:07 Ondansetron 4 mg IVP once ordered. ke 16:07 IV Saline Lock ordered. ke 16:07 Undress patient appropriately for examination ordered. ke 16:09 Amylase Ordered. EDMS 16:09 Basic Metabolic Profile Ordered. EDMS 16:09 CBC with Diff Ordered. EDMS 16:09 Lipase Ordered. EDMS 16:09 Liver Profile Ordered. EDMS 16:09 Prothrombin Time Profile\E\INR Ordered. EDMS 16:09 Urinalysis Ordered. EDMS 16:09 Urine Culture Ordered. EDMS 16:09 CT ABD & PELVIS: No Contrast Ordered. EDMS 16:09 NOTHING BY MOUTH+DIET ordered. EDMS 16:55 morphine 4 mg IVP once ordered. ke 17:08 Financial registration complete. ks16 17:33 Basic Metabolic Profile Reviewed. ke 17:33 CBC with Diff Reviewed. ke 17:33 Amylase Reviewed. ke 17:33 Lipase Reviewed. ke 17:33 Liver Profile Reviewed. ke 17:33 Prothrombin Time Profile\E\INR Reviewed. ke 17:33 CT ABD & PELVIS: No Contrast Reviewed. ke 18:08 Urinalysis Reviewed. ke 19:00 [facility] Payment Agreement was scanned into [employer] and attached to record. ks16 10/25 10:22 T-Sheet-- Draft Copy was scanned into [employer] and attached to record. gb Administered Medications: 10/24 16:31 Drug: NS 0.9% 1000 ml [sodium chloride 0.9 % intravenous solution] Route: IV; Rate: 100 mk4 mL/hr; Site: left antecubital; 16:32 Drug: Ondansetron 4 mg Route: IVP; Site: left antecubital; mk4 17:00 Drug: morphine 4 mg [morphine 4 mg/mL intravenous cartridge (1 mL)] Route: IVP; Site: kr3 left antecubital; 17:44 Follow up: Response: Pain is unchanged, physician notified kr3 Signatures: Dispatcher [employer] EDMS Maddie Monk, Reg Reg gb Suhail Garcia, RING SORTER RING SORTER Clement Moore RN RN mlb1 Valentina eBard RN RN mk4 Meena Carbone, Reg Reg ks16 Coreen Van RN3 The chart was reviewed and I authenticate all verbal orders and agree with the evaluation and treatment provided.Attachments: 19:00 [facility] Payment Agreement [email or web address] 10/25 10:22 T-Sheet-- Draft Copy Chart Complete MTDD
--- NOTE | 2016-10-26 19:29 | EDDOCDS ---
Physician Documentation [facility] Name: Aggie Champion Age: 56 yrs Sex: Female : 1960 Arrival Date: 10/24/2016 Time: 15:18 Bed I5 / M5 Private MD: Earl Thomas Disposition: 10/24/16 18:10 Discharged to Home/Self Care. Impression: Abdominal and pelvic pain. - Condition is Stable. - Discharge Instructions: Abdominal Pain, Adult. - Prescriptions for Zofran 4 mg Oral Tablet - take 1 tablet by ORAL route 4 times per day As needed; 10 tablet. Tramadol 50 mg Oral Tablet - take 1 tablet by ORAL route 4 times per day As needed MDD: 4 tabs; 20 tablet. - Medication Reconciliation, Local Pharmacy Hours form. - Follow up: Eral Thomas; When: 4 - 5 days; Reason: Recheck today's complaints, Continuance of care. - Problem is an ongoing problem. - Symptoms are unchanged. Historical: - Allergies: Aspirin (Upset stomach); Motrin (Upset stomach); - Home Meds: 1. Advair Diskus 100-50 mcg/dose Inhl dsdv 1 puff 2 times per day 2. amlodipine 2.5 mg Oral tab 1 tab once daily 3. Atarax Oral 25 mg twice a day as needed 4. Caltrate 600 + D 600 mg (1,500 mg)-800 unit oral susp daily 5. folic acid 1 mg Oral tab 1 tab once daily 6. furosemide 20 mg Oral tab 1 tab once daily 7. gabapentin 400 mg Oral cap twice a day 8. hydrocodone-acetaminophen 5-325 mg Oral tab three times a day as needed 9. lamotrigine 100 mg Oral TbDL 2 times per day 10. lansoprazole 30 mg oral cpDR 30 mins pior to meals 11. losartan 100 mg oral tab 1 tab once daily 12. Methotrexate (Anti-Rheumatic) 2.5 mg Oral DsPk 7 tabs once wkly 13. Ventolin HFA 90 mcg/actuation Nebulizer HFAA 2 puffs every 6 hours as needed - PMHx: Anxiety; Arthritis; Asthma; Depression; Fibromyalgia; Hypercholesterolemia; Hypertension; insomnia; Osteoporosis; Rheumatoid Arthritis; - PSHx: Hernia repair; Cholecystectomy; - Social history: Smoking status: Patient states was never smoker of tobacco. No barriers to communication noted, The patient speaks fluent Puerto Rican, Speaks appropriately for age. - Family history: Not pertinent. - : The pt / caregiver states he / she is not on anticoagulants. Home medication list is obtained from the patient. - Exposure Risk Screening:: None identified. Vital Signs: 10/24 15:19 BP 135 / 69; Pulse 88; Resp 16; Temp 96.6(O); Pulse Ox 97% on R/A; Weight 71.21 kg / lr2 156.99 lbs (R); Height 5 ft. 2 in. (157.48 cm) (R); Pain 10/10; 18:16 BP 150 / 95; Pulse 81; Resp 18; Temp 97.6(O); Pulse Ox 97% on R/A; Pain 9/10; jml1 15:19 Body Mass Index 28.72 (71.21 kg, 157.48 cm) lr2 MDM: 16:07 NS 0.9% 1000 ml IV at 100 mL/hr continuous ordered. ke 16:07 Ondansetron 4 mg IVP once ordered. ke 16:07 IV Saline Lock ordered. ke 16:07 Undress patient appropriately for examination ordered. ke 16:09 Amylase Ordered. EDMS 16:09 Basic Metabolic Profile Ordered. EDMS 16:09 CBC with Diff Ordered. EDMS 16:09 Lipase Ordered. EDMS 16:09 Liver Profile Ordered. EDMS 16:09 Prothrombin Time Profile\E\INR Ordered. EDMS 16:09 Urinalysis Ordered. EDMS 16:09 Urine Culture Ordered. EDMS 16:09 CT ABD & PELVIS: No Contrast Ordered. EDMS 16:09 NOTHING BY MOUTH+DIET ordered. EDMS 16:55 morphine 4 mg IVP once ordered. ke 17:08 Financial registration complete. ks16 17:33 Basic Metabolic Profile Reviewed. ke 17:33 CBC with Diff Reviewed. ke 17:33 Amylase Reviewed. ke 17:33 Lipase Reviewed. ke 17:33 Liver Profile Reviewed. ke 17:33 Prothrombin Time Profile\E\INR Reviewed. ke 17:33 CT ABD & PELVIS: No Contrast Reviewed. ke 18:08 Urinalysis Reviewed. ke 19:00 [facility] Payment Agreement was scanned into [employer] and attached to record. ks16 10/25 10:22 T-Sheet-- Draft Copy was scanned into [employer] and attached to record. gb Administered Medications: 10/24 16:31 Drug: NS 0.9% 1000 ml [sodium chloride 0.9 % intravenous solution] Route: IV; Rate: 100 mk4 mL/hr; Site: left antecubital; 16:32 Drug: Ondansetron 4 mg Route: IVP; Site: left antecubital; mk4 17:00 Drug: morphine 4 mg [morphine 4 mg/mL intravenous cartridge (1 mL)] Route: IVP; Site: kr3 left antecubital; 17:44 Follow up: Response: Pain is unchanged, physician notified kr3 Signatures: Dispatcher [employer] EDMS Maddie Monk, Reg Reg gb Suhail Garcia, DISPUTE RESOLUTION SPECIALIST DISPUTE RESOLUTION SPECIALIST Clement Moore RN RN mlb1 Valentina Beard RN RN mk4 Meena Carbone, Reg Reg ks16 Coreen Van RN3 The chart was reviewed and I authenticate all verbal orders and agree with the evaluation and treatment provided.Attachments: 19:00 [facility] Payment Agreement [email or web address] 10/25 10:22 T-Sheet-- Draft Copy Chart Complete MTDD
== END 2016-10-24 18:28 | disposition home or self-care (01) ==
LOC: M ED 15:18
DX: R10.30 Lower abdominal pain, unspecified (principal); F41.9 Anxiety disorder, unspecified; M05.40 Rheumatoid myopathy with rheumatoid arthritis of unspecified site; J45.909 Unspecified asthma, uncomplicated; F32.9 Major depressive disorder, single episode, unspecified; M79.7 Fibromyalgia; E78.00 Pure hypercholesterolemia, unspecified; I10 Essential (primary) hypertension; G47.00 Insomnia, unspecified; M81.0 Age-related osteoporosis without current pathological fracture; Z79.899 Other long term (current) drug therapy; Z88.6 Allergy status to analgesic agent
CPT/HCPCS: 36415; 74176; 80048; 80076; 81001; 82150; 83690; 85025; 85610; 87086; 96374; 96375; 99284; J2405

== ENCOUNTER → 2016-11-03 | Outpatient (CLI) | payer OTHER ==
--- NOTE | 2016-11-06 08:39 | SLEEPCENT ---
DATE OF PROCEDURE: 11/03/2016 REQUESTING PROVIDER: Blue Song DO INTERPRETATION: Nocturnal polysomnography was performed for the titration of pressure therapy in this patient with obstructive sleep apnea syndrome, confirmed by home testing, which revealed a respiratory event index of 45.1. For testing, the patient was fit with a ResMed Quattro full face mask of extra small size, 4 cm of water pressure were applied to the circuit and the lights were extinguished. 6 hours and 32 minutes of data were reviewed. There were 243 minutes of sleep identified. Sleep latency was prolonged at 134 minutes. Rapid eye movement (REM) latency was normal at 84 minutes. Sleep architecture, one established was good. There were two REM periods appreciated. Overall sleep efficiency was 62%. The patient's electrocardiogram (EKG) showed a sinus rhythm with an average heart rate of 78 beats per minute. Electroencephalogram (EEG) showed reasonably normal waveforms for awake and sleep. Respiratory events were best palliated with a CPAP to a pressure of +7. Limb activity persisted. Despite optimal pressure therapy, there were three trains of 30 events and the limb movement arousal index was 8.6. IMPRESSION: 1. Obstructive sleep apnea syndrome (G47.33). 2. Periodic limb movement disorder (G47.61). Limb movement arousal index of 8.6. RECOMMENDATIONS: Nightly use of pressure therapy at 7 cm of water should be sufficient to address the patient's respiratory obstructive events. Should sleep symptoms persist, interventions to reduce the frequency or arousals from limb activity may also be helpful.
== END ==
LOC: M SLEEP 20:00
PROVIDERS: ATTEND Internal Medicine Pulmonary Disease
DX: G47.33 Obstructive sleep apnea (adult) (pediatric) (principal); G47.61 Periodic limb movement disorder

== ENCOUNTER → 2017-02-12 | Outpatient (CLI) | payer OTHER ==
[2017-02-12 14:17] LABS: VITAMIN B12 LEVEL 319 PG/ML
[2017-02-12 14:18] LABS: FOLATE 11.3 NG/ML
[2017-02-12 14:47] LABS: BASO # 0.1 K/mm3 (0.0-0.2); BASO % 0.8 % (0.0-1.0); EOS # 0.3 K/mm3 (0.0-0.50); EOS % 3.6 % (0.0-3.0); LYMPH # 2.5 K/mm3 (1.5-4.5); MEAN CORPUSCULAR HEMOGLOBIN 34.7 pg (27.0-33.0); MEAN CORPUSCULAR HGB CONC 33.1 g/dl (32.0-36.5); MEAN CORPUSCULAR VOLUME 104.8 fl (80.0-96.0); MONO # 0.3 K/mm3 (0.0-0.8); MONO % 4.1 % (0.0-5.0); NEUTROPHILS # 5.1 K/mm3 (1.8-7.7); NEUTROPHILS % 61.4 % (36.0-66.0); WHITE BLOOD COUNT 8.3 K/mm3 (4.0-10.0)
[2017-02-12 16:21] LABS: ALBUMIN 3.8 GM/DL (3.2-5.2); ALBUMIN/GLOBULIN RATIO 1.09 (1.00-1.93); ALKALINE PHOSPHATASE 91 U/L (45-117); ALT/SGPT 32 U/L (12-78); ANION GAP 6 MEQ/L (8-16); AST/SGOT 14 U/L (15-37); BILIRUBIN,TOTAL 0.4 MG/DL (0.2-1.0); BLOOD UREA NITROGEN 10 MG/DL (7-18); CARBON DIOXIDE LEVEL 29 MEQ/L (21-32); CHLORIDE LEVEL 106 MEQ/L (98-107); CHOLESTEROL LEVEL 210 MG/DL (<200); CREATININE FOR GFR 1.06 MG/DL (0.55-1.02); FERRITIN 47 NG/ML (8-252); GLOMERULAR FILTRATION RATE > 60.0 (>51); GLUCOSE, FASTING 94 MG/DL (70-105); POTASSIUM SERUM 3.9 MEQ/L (3.5-5.1); SODIUM LEVEL 141 MEQ/L (136-145); TOTAL PROTEIN 7.3 GM/DL (6.4-8.2); TRIGLYCERIDES LEVEL 324 MG/DL (<150)
[2017-02-14 00:06] LABS: Lyme Disease IgG/IgM Antibodie <0.91 ISR (0.00-0.90); Lyme Disease IgM Ab Quantitati <0.80 index (0.00-0.79); SJOGREN'S ANTI SS-A <0.2 AI (0.0-0.9); SJOGREN'S ANTI SS-B <0.2 AI (0.0-0.9)
[2017-02-14 11:21] LABS: ALBUMIN 4.26 GM/DL (3.29-5.55); ALBUMIN % 58.4 % (55.8-66.1); GAMMA GLOBULIN % 12.9 % (11.1-18.8)
== END ==
LOC: M LAB 13:14
PROVIDERS: ATTEND Physician Assistant Medical
DX: R53.83 Other fatigue (principal); I25.9 Chronic ischemic heart disease, unspecified

== ENCOUNTER → 2017-02-12 | Outpatient (CLI) | payer OTHER ==
--- NOTE | 2017-02-13 04:09 | REP ---
Clinical: Centrilobular emphysema. Comparison: 09/22/2015 . Findings: Mild emphysematous changes with small scattered bullae are identified primarily involving the mid to upper lung zones. A focal, 2.5 cm ground-glass non solid density is appreciated in the left upper lobe (image 43) which is essentially unchanged compared to 09/22/2015 . No acute consolidation, or mass lesion appreciated. A 3 mm noncalcified nodule is identified along the periphery of the right upper lobe (image 36) which remain stable compared to 09/22/2015. No pleural effusion/reaction or pneumothorax. Tracheobronchial tree is patent. The mediastinum is grossly unremarkable. Mild atherosclerotic changes to the thoracic aorta and coronary arteries noted. No evidence for aortic aneurysm, cardiomegaly or pericardial effusion. No obvious adenopathy. Surrounding musculoskeletal structures are normal for age. Upper abdomen demonstrates normal bilateral adrenal glands with evidence for prior cholecystectomy. Impression: 1. Mild emphysematous changes. 2. Non solid ground-glass density in the left upper lobe and 3 mm noncalcified nodule in the right upper lobe remains stable compared to 09/22/2015 and likely represent chronic changes. 3. No acute mediastinal or pleuroparenchymal process appreciated. Signed by Dusty Tariq MD 02/13/2017 04:00 A
== END ==
LOC: M RAD 13:46
PROVIDERS: ATTEND Internal Medicine Pulmonary Disease
DX: J43.2 Centrilobular emphysema (principal); R91.1 Solitary pulmonary nodule

== ENCOUNTER → 2017-04-11 | Outpatient (CLI) | payer OTHER ==
[~2017-04-11] MED LIST changes: +AMLO5TAB2 PO; +BENA25CA4 PO; +BUPR15TA PO; +DEXI60CA2 PO; +DRIS50002 PO; +FOLI1TAB4 PO; +GABA800T PO; +HYDRO; +IPRA1POW; +LOSA100T36; +METH2.5TA PO; +METO50TA7 PO; +REGL10TA6 PO; +ROBA500T PO; +SERO50TA PO; +SIMV40TA2 PO; +VENL37TA PO; +VICO7.5T11 PO; +ZOFR8TAB PO
== END ==
LOC: M LAB 12:12
PROVIDERS: ATTEND Physician Assistant Medical
DX: R19.7 Diarrhea, unspecified (principal)

== ENCOUNTER → 2017-04-12 | Outpatient (REF) | payer OTHER | LOC: M LAB REF 16:00 | PROVIDERS: ATTEND Physician Assistant Medical | DX: R19.7 Diarrhea, unspecified (principal) ==

== ENCOUNTER → 2017-05-14 | Outpatient (CLI) | payer OTHER | LOC: M RAD 16:12 | PROVIDERS: ATTEND Physician Assistant Medical | DX: R63.4 Abnormal weight loss (principal); R19.7 Diarrhea, unspecified ==

== ENCOUNTER → 2017-05-16 | Outpatient (CLI) | payer OTHER ==
[~2017-05-16] MED LIST changes: +GASTROGRAFIN SOLUTION 30ML (Q9963) As Ordered ONE; +ISOVUE-370 76% 100ML VIAL (Q9967) As Ordered ONE
--- NOTE | 2017-05-16 16:08 | REP ---
Clinical: Diarrhea and abnormal weight loss. Technique: Axial contrast enhanced images from the lung bases to the pubic symphysis using oral and 100 ml Isovue 370 intravenous contrast material with precontrast images of the abdomen as well as coronal and sagittal re-formations. Comparison: 10/24/2016 Findings: Lung bases are clear. Visualized heart and pericardium normal. Liver, spleen, pancreas, bilateral adrenal glands and kidneys are normal. The patient is status post cholecystectomy. The enteric system is without obstruction or acute inflammatory process. Pelvis demonstrates normal bladder and age-appropriate uterus/adnexa. Small fat containing ventral hernia measures approximately 2.0 cm and has increased from prior examination when measuring 8 mm on prior exam. Atherosclerotic changes to the vasculature noted. Musculoskeletal structures demonstrate age-related degenerative changes without focal osseous abnormality. Impression: 1. No acute abdominopelvic pathology appreciated. 2. Small fat containing supraumbilical ventral hernia measuring 2.0 cm increased from prior examination Signed by Dusty Tariq MD 05/16/2017 03:59 P
== END ==
LOC: M RAD 14:03
PROVIDERS: ATTEND Physician Assistant Medical
DX: K42.9 Umbilical hernia without obstruction or gangrene (principal); R19.7 Diarrhea, unspecified; R63.4 Abnormal weight loss
CPT/HCPCS: 74178; Q9963; Q9967

== ENCOUNTER → 2017-05-20 | Outpatient (CLI) | payer OTHER ==
[~2017-05-20] MED LIST changes: +E-Z-PAQUE 96% w/w SUSP 176GM BTL As Ordered ONE; -GASTROGRAFIN SOLUTION 30ML (Q9963) As Ordered ONE; -ISOVUE-370 76% 100ML VIAL (Q9967) As Ordered ONE
--- NOTE | 2017-05-20 18:07 | REP ---
SMALL BOWEL FOLLOW THROUGH: The procedure was performed by RUBY Colbert under the direct supervision of Dr. Bryan. All imaging was reviewed with Dr. Bryan prior to dictation. The qc analyst radiograph shows gallbladder clips in the gallbladder fossa. Other than that there are no abnormalities noted. Standard barium and small bowel series was performed with multiple overhead radiographs. In addition, the small bowel was fluoroscopically examined. The small bowel was normal in course and caliber. There was no evidence of intrinsic or extrinsic mass lesions identified. The transit time was approximately 25 minutes. IMPRESSION: Unremarkable small bowel follow through series. Fluoroscopy time of 2 minutes and 46 seconds. Reviewed by RUBY Nichole 05/21/2017 10:29 AEdited and Signed by Avery Bryan MD 05/21/2017 04:34 P
== END ==
LOC: M RAD 10:01
PROVIDERS: ATTEND Physician Assistant Medical
DX: R19.7 Diarrhea, unspecified (principal); R63.4 Abnormal weight loss

== ENCOUNTER 2017-06-02 08:26 | Outpatient (CLI) | payer OTHER ==
[~2017-06-02] VITALS: Ht 157.5 cm; Wt 64.9 kg
[~2017-06-02 08:26] MED LIST changes: -E-Z-PAQUE 96% w/w SUSP 176GM BTL As Ordered ONE; -HYDRO; -LOSA100T36; -REGL10TA6 PO; -ROBA500T PO; -VICO7.5T11 PO
[2017-06-02] MEDS ORDERED: PROPOFOL 500 MG/50 ML VIAL As Ordered ONE (08:29)
[2017-06-02] MEDS ORDERED: LIDOCAINE 2% INJ 100 MG/5 ML SDV (FOR ANES.) As Ordered ONE (08:33)
[2017-06-02] MEDS ORDERED: NS 1,000 ML IV ONE (09:00)
[2017-06-02] MEDS ORDERED: HYDRO (09:41)
[2017-06-02] MEDS ORDERED: VICO7.5T11 PO (09:41)
[2017-06-02] MEDS ORDERED: fentaNYL 100 MCG/2 ML INJECTION (J3010) As Ordered ONE (10:24)
--- NOTE | 2017-06-02 10:30 | ROOR ---
Patient Name: Aggie Champion Procedure Date: 06/02/2017 10:17 AM Date of : 1960 Age: 57 Room: [facility] Gender: Female Note Status: Finalized Procedure: Upper GI endoscopy Indications: Heartburn, Weight loss Providers: Ashish COLLINS MD Referring MD: CHARLOTTE MCKEON Requesting Provider: Medicines: Monitored Anesthesia Care Complications: No immediate complications. Procedure: Pre-Anesthesia Assessment: - The heart rate, respiratory rate, oxygen saturations, blood pressure, adequacy of pulmonary ventilation, and response to care were monitored throughout the procedure. The Endoscope was introduced through the mouth, and advanced to the second part of duodenum. The patient tolerated the procedure well. Findings: The examined esophagus was normal. The examined duodenum was normal. A large amount of food (residue) was found in the entire examined stomach. No gross lesions were noted in the entire examined stomach. Impression: - Normal esophagus. - Normal examined duodenum. - A large amount of food (residue) in the stomach. - No gross lesions in the stomach. - No specimens collected. - -Presence of food after 8 hour fast is consistent with Delayed Gastric emptying/Gastroparesis Recommendation: - Observe patient's clinical course. - Gastroparesis diet: - Eat smaller, more frequent meals throughout the day. - Low fat diet. - Liquid/soft foods are tolerated better than solid foods. - Low fiber/well cooked vegetables are tolerated better than high fiber/fibrous foods/raw vegetables. - Avoid medications that inhibit gastric/intestinal motility such as narcotic medications. Ashish Collins MD Ashish COLLINS MD 06/02/2017 10:29:56 AM This report has been signed electronically. Number of Addenda: 0 Note Initiated On: 06/02/2017 10:17 AM Estimated Blood Loss: Estimated blood loss: none.
--- NOTE | 2017-06-02 10:43 | ROOR ---
Patient Name: Aggie Champion Procedure Date: 06/02/2017 10:18 AM Date of : 1960 Age: 57 Room: [facility] Gender: Female Note Status: Finalized Procedure: Colonoscopy Indications: Change in bowel habits, Chronic diarrhea Providers: Ashish COLLINS MD Referring MD: CHARLOTTE MCKEON Requesting Provider: Medicines: Monitored Anesthesia Care Complications: No immediate complications. Procedure: Pre-Anesthesia Assessment: - The heart rate, respiratory rate, oxygen saturations, blood pressure, adequacy of pulmonary ventilation, and response to care were monitored throughout the procedure. The Colonoscope was introduced through the anus and advanced to 4 cm into the ileum. The colonoscopy was performed without difficulty. The patient tolerated the procedure well. The quality of the bowel preparation was fair. Findings: The perianal and digital rectal examinations were normal. (EXAM: Complete, PREP: Fair/Adequate) The terminal ileum appeared normal. The entire examined colon appeared normal on direct and retroflexion views. Biopsies for histology were taken with a cold forceps from the entire colon for evaluation of microscopic colitis. Impression: - (EXAM: Complete, PREP: Fair/Adequate) - The examined portion of the ileum was normal. - The entire examined colon is normal on direct and retroflexion views. - Biopsies were taken with a cold forceps from the entire colon for evaluation of microscopic colitis. Recommendation: - Continue present medications. - Telephone endoscopist for pathology results in 2 weeks. Ashish Collins MD Ashish COLLINS MD 06/02/2017 10:43:34 AM This report has been signed electronically. Number of Addenda: 0 Note Initiated On: 06/02/2017 10:18 AM Estimated Blood Loss: Estimated blood loss: none.
[2017-06-02] MEDS ORDERED: ALBUTEROL SULFATE 2.5 MG/0.5 ML INH NEB SOLN As Ordered ONE (10:52)
[2017-06-02 11:10] VITALS: BP 176/79
[2017-06-02] MEDS ORDERED: ALBUTEROL SULFATE 2.5 MG/0.5 ML INH NEB SOLN INH ONE (11:30)
[2017-07-14] MEDS ORDERED: LOSA100T36 (12:21)
[2017-07-14] MEDS ORDERED: ROBA500T PO (15:47)
[2017-07-14] MEDS ORDERED: REGL10TA6 PO (15:47)
== END 2017-06-02 11:05 | disposition home or self-care (01) ==
LOC: M OPP 08:26
PROVIDERS: ATTEND Internal Medicine Gastroenterology
DX: R19.4 Change in bowel habit (principal); K52.9 Noninfective gastroenteritis and colitis, unspecified; R12 Heartburn; R63.4 Abnormal weight loss; J45.909 Unspecified asthma, uncomplicated; I10 Essential (primary) hypertension; E78.00 Pure hypercholesterolemia, unspecified; E78.5 Hyperlipidemia, unspecified; F41.9 Anxiety disorder, unspecified; F31.9 Bipolar disorder, unspecified; J44.9 Chronic obstructive pulmonary disease, unspecified; M06.9 Rheumatoid arthritis, unspecified; G43.909 Migraine, unspecified, not intractable, without status migrainosus; G47.30 Sleep apnea, unspecified; Z72.0 Tobacco use; Z86.74 Personal history of sudden cardiac arrest; Z85.41 Personal history of malignant neoplasm of cervix uteri; Z79.891 Long term (current) use of opiate analgesic; Z79.899 Other long term (current) drug therapy; Z88.6 Allergy status to analgesic agent
CPT/HCPCS: 43235; 45380; 88305; 94640; J3010

== ENCOUNTER → 2017-06-16 | Outpatient (CLI) | payer OTHER ==
[~2017-06-16] MED LIST changes: +HYDRO; +LOSA100T36; +REGL10TA6 PO; +ROBA500T PO; +VICO7.5T11 PO
--- NOTE | 2017-06-17 03:20 | REP ---
Clinical: Multinodular goiter. Technique: Real time lees scale and color evaluation using linear high frequency transducer. Comparison: 05/07/2016. Findings: The thyroid gland is relatively normal in contour, size, shape and parenchymal echogenicity. Right lobe measures 2.4 x 2.4 x 4.8 cm and includes 6.4 x 4.0 x 5.6 mm and 6.1 x 3.8 x 6.1 mm mid/upper pole simple cysts and 5.2 x 2.9 x 3.4 mm simple cyst approaching the isthmus which are essentially unchanged. Left lobe measures 4.7 x 1.9 x 2.2 cm and includes stable 13 x 10 x 7.2 mm complex upper pole cyst calcification. Isthmus measures 5 mm in width. Impression: Stable thyroid gland as described above. Few scattered cysts again identified. Signed by Dusty Tariq MD 06/17/2017 03:11 A
== END ==
LOC: M RAD 13:31
PROVIDERS: ATTEND Physician Assistant Medical
DX: E04.2 Nontoxic multinodular goiter (principal)

== ENCOUNTER → 2017-06-16 | Outpatient (CLI) | payer OTHER ==
--- NOTE | 2017-06-17 03:32 | REP ---
Clinical: Periumbilical pain. Technique: Real time lees scale ultrasound examination using linear high frequency transducer. Findings: Real time ultrasound demonstrates a 2.1 cm right supraumbilical fat-containing ventral hernia which distends to 2.6 cm on Valsalva and includes fat and bowel. Superior to the ventral hernia is 11 x 6 x 9 mm subcutaneous hypoechoic focal area which is painful on transducer pressure and cannot be further evaluated by ultrasound but may represent small sebaceous cyst. Impression: 1. Fat/bowel containing right supraumbilical ventral hernia. 2. 11 mm hypoechoic subcutaneous tender lesion superior to the hernia which is otherwise nonspecific by ultrasound. Signed by Dusty Tariq MD 06/17/2017 03:23 A
== END ==
LOC: M RAD 14:38
PROVIDERS: ATTEND Surgery
DX: R10.33 Periumbilical pain (principal)

== ENCOUNTER → 2017-06-27 | Outpatient (CLI) | payer OTHER | LOC: M LAB 13:45 | PROVIDERS: ATTEND Physician Assistant Medical | DX: E04.2 Nontoxic multinodular goiter (principal) ==

== ENCOUNTER → 2017-07-21 | Outpatient (CLI) | payer OTHER ==
--- NOTE | 2017-07-21 20:06 | REP ---
PELVIC AND ENDOVAGINAL PROBE ULTRASOUND: 07/21/2017. Comparison: Ultrasound 07/07/2015, CT abdomen and pelvis 05/16/2017. Clinical history: Right lower quadrant pain. Findings: The bladder was poorly filled with no visualization of the pelvic structures. Endovaginal probe shows the uterus retroverted and retroflexed. It measures 4.4 x 3 x 3.7 cm. No uterine mass or contour abnormality. The endometrial stripe has a thickness of 2 mm and is homogeneous. There is no free fluid. Uterus is mildly heterogeneous. This suggest some fibroids may be present. The right ovary 3.2 x 2.1 x 2.8 cm with a 2.2 x 2.1 cm dominant follicle (cyst defined at 2.5 cm). Doppler tracing shows resistive index 0.56. No adjacent fluid. The left ovary is 3.1 x 1.4 x 1.3 cm. It has a subcentimeter follicle. Doppler tracing shows resistive index of 0.77. No adjacent free fluid. Impression: 1. Uterus retroverted, retroflexed and somewhat heterogeneous in echotexture without discrete measurable mass. The endometrial stripe 2 mm and normal. 2. No fluid in the cul-de-sac or adjacent to the ovaries. 3. No evidence of ovarian torsion. There is a dominant follicle right ovary 2.2 x 2.1 cm. Signed by Cricket Broderick MD 07/21/2017 08:07 P
== END ==
LOC: M RAD 17:44
PROVIDERS: ATTEND Obstetrics & Gynecology Obstetrics
DX: R10.31 Right lower quadrant pain (principal)

== ENCOUNTER 2017-09-26 18:44 | Emergency (ER) | payer OTHER ==
[2017-09-26] MEDS: NS 1,000 ML IV (20:45)
[2017-09-26 21:22] LABS: BASO # 0.1 10^3/uL (0.0-0.2); BASO % 0.5 % (0.0-1.0); EOS # 0.1 10^3/uL (0.0-0.50); EOS % 0.5 % (0.0-3.0); HEMATOCRIT 36.1 % (36.0-47.0); IMMATURE GRANULOCYTE % 0.3 % (0-0); LYMPH % 18.1 % (24.0-44.0); MEAN CORPUSCULAR HEMOGLOBIN 34.5 pg (27.0-33.0); MEAN CORPUSCULAR HGB CONC 33.2 g/dl (32.0-36.5); MEAN CORPUSCULAR VOLUME 103.7 fl (80.0-96.0); MONO # 0.8 10^3/uL (0.0-0.8); NEUTROPHILS % 73.6 % (36.0-66.0); PLATELET COUNT, AUTOMATED 287 10^3/uL (150-450); RED BLOOD COUNT 3.48 10^6/uL (4.00-5.40); RED CELL DISTRIBUTION WIDTH 13.6 % (11.5-14.5); WHITE BLOOD COUNT 10.8 10^3/uL (4.0-10.0)
[2017-09-26] MEDS: ONDANSETRON 4MG/2ML VIAL (J2405) IV (21:30)
[2017-09-26 22:01] LABS: ALBUMIN 3.7 GM/DL (3.2-5.2); ALBUMIN/GLOBULIN RATIO 1.23 (1.00-1.93); ALKALINE PHOSPHATASE 76 U/L (45-117); ANION GAP 9 MEQ/L (8-16); AST/SGOT 7 U/L (7-37); BILIRUBIN,DIRECT 0.1 MG/DL (0.0-0.2); BILIRUBIN,TOTAL 0.2 MG/DL (0.2-1.0); BLOOD UREA NITROGEN 20 MG/DL (7-18); CALCIUM LEVEL 8.4 MG/DL (8.5-10.1); CARBON DIOXIDE LEVEL 23 MEQ/L (21-32); CHLORIDE LEVEL 111 MEQ/L (98-107); CPK CREATINE PHOSPHOKINASE 58 U/L (26-192); CREATININE FOR GFR 1.37 MG/DL (0.55-1.02); GLOMERULAR FILTRATION RATE 51.1 (>51); GLUCOSE, FASTING 97 MG/DL (70-105); POTASSIUM SERUM 4.2 MEQ/L (3.5-5.1); SODIUM LEVEL 143 MEQ/L (136-145); TOTAL PROTEIN 6.7 GM/DL (6.4-8.2); TROPONIN I < 0.02 NG/ML (< 0.10)
[2017-09-26 22:08] LABS: ALT/SGPT 33 U/L (12-78); MB/CK RELATIVE INDEX 1.72 (< OR =4)
[2017-09-26] MEDS: PERCOCET 5MG/325MG TAB PO ×2 (22:15→22:16)
[2017-09-26 22:33] LABS: KETONE, URINE AUTO RFX NEGATIVE (NEGATIVE); LEUKOCYTE ESTERASE UR AUTO RFX NEGATIVE (NEGATIVE); NITRITE, URINE AUTO RFX NEGATIVE (NEGATIVE); RBC, URINE AUTO RFX 2 /HPF (0-3); SPECIFIC GRAVITY UR AUTO RFX 1.025 (1.002-1.035); SQUAM EPITHELIAL CELL UR AURFX 0 /HPF (0-6); WBC, URINE AUTO RFX 1 /HPF (0-3)
== END 2017-09-27 00:15 | disposition home or self-care (01) ==
LOC: M ED 09-27 00:15
DX: J44.0 Chronic obstructive pulmonary disease with (acute) lower respiratory infection (principal); J45.909 Unspecified asthma, uncomplicated; I10 Essential (primary) hypertension; F41.9 Anxiety disorder, unspecified; I25.2 Old myocardial infarction; F17.210 Nicotine dependence, cigarettes, uncomplicated; Z79.899 Other long term (current) drug therapy; Z88.8 Allergy status to other drugs, medicaments and biological substances; Z98.890 Other specified postprocedural states
CPT/HCPCS: J2405

== ENCOUNTER → 2017-11-20 | Outpatient (CLI) | payer OTHER | LOC: M RAD 14:59 | DX: Z12.31 Encounter for screening mammogram for malignant neoplasm of breast (principal) | CPT/HCPCS: 77067 ==

== ENCOUNTER 2017-11-26 12:51 | Outpatient (RCR) | payer OTHER | END 2017-12-06 | LOC: M OT 12:51 | DX: Z51.89 Encounter for other specified aftercare (principal); M50.30 Other cervical disc degeneration, unspecified cervical region | CPT/HCPCS: 97010 ==

== ENCOUNTER 2017-12-09 13:33 | Outpatient (RCR) | payer OTHER | END 2018-01-05 | LOC: M OT 13:33 → M PT 12-11 14:30 | DX: Z51.89 Encounter for other specified aftercare (principal); S62.357D Nondisplaced fracture of shaft of fifth metacarpal bone, left hand, subsequent encounter for fracture with routine healing; M50.10 Cervical disc disorder with radiculopathy, unspecified cervical region | CPT/HCPCS: 97110 ==

== ENCOUNTER 2018-01-13 17:08 | Emergency (ER) | payer OTHER ==
[2018-01-13] MEDS: NORCO, ANEXSIA 5/325MG TABLET (HYDROcodone/ACETAMINOPHEN) PO (18:02)
[2018-01-13] MEDS: predniSONE 20 MG TAB PO (18:03)
[2018-01-13] MEDS: ONDANSETRON 4 MG ORAL DISINTEGRATING TAB (Q0162 PER 1MG) PO (18:10)
== END 2018-01-13 18:20 | disposition home or self-care (01) ==
LOC: M ED 17:08
DX: M25.541 Pain in joints of right hand (principal); M25.542 Pain in joints of left hand; I10 Essential (primary) hypertension; J44.9 Chronic obstructive pulmonary disease, unspecified; F17.200 Nicotine dependence, unspecified, uncomplicated; Z88.6 Allergy status to analgesic agent; Z88.8 Allergy status to other drugs, medicaments and biological substances
CPT/HCPCS: Q0162

== ENCOUNTER 2018-02-10 20:40 | Emergency (ER) | payer OTHER ==
[2018-02-10] MEDS ORDERED: PERCOCET 5MG/325MG TAB PO (21:45)
[2018-02-10] MEDS: MORPHINE 10 MG/ML 1ML VIAL (J2270) IM (21:58)
[2018-02-10] MEDS: ONDANSETRON 4 MG ORAL DISINTEGRATING TAB (Q0162 PER 1MG) PO (22:11)
[2018-02-10] MEDS: DOXYCYCLINE HYCLATE 100 MG TAB PO (22:56)
[2018-02-10] MEDS: NORCO 5/325MG TABLET (BULK FOR ED) PO (22:56)
== END 2018-02-10 23:05 | disposition home or self-care (01) ==
LOC: M ED 20:40
DX: J44.0 Chronic obstructive pulmonary disease with (acute) lower respiratory infection (principal); M54.12 Radiculopathy, cervical region; I10 Essential (primary) hypertension; E78.5 Hyperlipidemia, unspecified; I25.2 Old myocardial infarction; F41.9 Anxiety disorder, unspecified; K21.9 Gastro-esophageal reflux disease without esophagitis; Z87.891 Personal history of nicotine dependence; Z88.6 Allergy status to analgesic agent; Z88.8 Allergy status to other drugs, medicaments and biological substances; Z79.899 Other long term (current) drug therapy; Z79.51 Long term (current) use of inhaled steroids
CPT/HCPCS: Q0162

== ENCOUNTER → 2018-02-16 | Outpatient (CLI) | payer OTHER | LOC: M PAIN 15:00 | DX: G89.29 Other chronic pain (principal); M47.812 Spondylosis without myelopathy or radiculopathy, cervical region; M46.92 Unspecified inflammatory spondylopathy, cervical region; M79.1 Myalgia; M54.2 Cervicalgia; I10 Essential (primary) hypertension; J45.909 Unspecified asthma, uncomplicated; M06.9 Rheumatoid arthritis, unspecified; M17.0 Bilateral primary osteoarthritis of knee; M16.0 Bilateral primary osteoarthritis of hip; F17.210 Nicotine dependence, cigarettes, uncomplicated; F31.9 Bipolar disorder, unspecified; R73.01 Impaired fasting glucose; K59.00 Constipation, unspecified; E55.9 Vitamin D deficiency, unspecified; D64.9 Anemia, unspecified; E78.5 Hyperlipidemia, unspecified; Z87.39 Personal history of other diseases of the musculoskeletal system and connective tissue; Z79.899 Other long term (current) drug therapy; Z88.6 Allergy status to analgesic agent | CPT/HCPCS: G0463 ==

== ENCOUNTER → 2018-02-25 | Outpatient (CLI) | payer OTHER | LOC: M RAD 12:24 | DX: R91.8 Other nonspecific abnormal finding of lung field (principal); J44.9 Chronic obstructive pulmonary disease, unspecified | CPT/HCPCS: 71250 ==

== ENCOUNTER → 2018-03-09 | Outpatient (CLI) | payer OTHER | LOC: M PAIN 15:00 | DX: M47.812 Spondylosis without myelopathy or radiculopathy, cervical region (principal); M46.92 Unspecified inflammatory spondylopathy, cervical region; M79.1 Myalgia; M54.2 Cervicalgia; G89.29 Other chronic pain; I10 Essential (primary) hypertension; J45.909 Unspecified asthma, uncomplicated; M06.9 Rheumatoid arthritis, unspecified; M19.90 Unspecified osteoarthritis, unspecified site; F31.9 Bipolar disorder, unspecified; E78.5 Hyperlipidemia, unspecified; F17.210 Nicotine dependence, cigarettes, uncomplicated; Z79.51 Long term (current) use of inhaled steroids; Z79.899 Other long term (current) drug therapy; Z88.6 Allergy status to analgesic agent; Z88.8 Allergy status to other drugs, medicaments and biological substances; Z85.41 Personal history of malignant neoplasm of cervix uteri; Z87.39 Personal history of other diseases of the musculoskeletal system and connective tissue | CPT/HCPCS: G0463 ==

== ENCOUNTER → 2018-03-23 | Outpatient (CLI) | payer OTHER | LOC: M RAD 15:42 | DX: M50.322 Other cervical disc degeneration at C5-C6 level (principal); M06.9 Rheumatoid arthritis, unspecified | CPT/HCPCS: 72052 ==

== ENCOUNTER → 2018-04-22 | Outpatient (CLI) | payer OTHER ==
[2018-04-22 10:17] LABS: BASO % 0.6 % (0.0-1.0); EOS % 0.5 % (0.0-3.0); HEMATOCRIT 37.4 % (36.0-47.0); HEMOGLOBIN 12.4 g/dl (12.0-15.5); IMMATURE GRANULOCYTE % 0.2 % (0-3.0); LYMPH # 1.5 10^3/uL (1.5-4.5); LYMPH % 23.5 % (24.0-44.0); MEAN CORPUSCULAR HEMOGLOBIN 33.9 pg (27.0-33.0); MEAN CORPUSCULAR HGB CONC 33.2 g/dl (32.0-36.5); MEAN CORPUSCULAR VOLUME 102.2 fl (80.0-96.0); MONO # 0.6 10^3/uL (0.0-0.8); MONO % 8.6 % (0.0-5.0); NEUTROPHILS # 4.4 10^3/uL (1.8-7.7); NEUTROPHILS % 66.6 % (36.0-66.0); PLATELET COUNT, AUTOMATED 216 10^3/uL (150-450); RED BLOOD COUNT 3.66 10^6/uL (4.00-5.40); WHITE BLOOD COUNT 6.5 10^3/uL (4.0-10.0)
[2018-04-22 11:06] LABS: ALBUMIN 3.3 GM/DL (3.2-5.2); ALKALINE PHOSPHATASE 71 U/L (45-117); ALT/SGPT 34 U/L (12-78); ANION GAP 6 MEQ/L (8-16); AST/SGOT 14 U/L (7-37); BILIRUBIN,TOTAL 0.3 MG/DL (0.2-1.0); BLOOD UREA NITROGEN 6 MG/DL (7-18); CALCIUM LEVEL 8.4 MG/DL (8.5-10.1); CARBON DIOXIDE LEVEL 29 MEQ/L (21-32); CHLORIDE LEVEL 110 MEQ/L (98-107); FREE T4 0.87 NG/DL (0.76-1.46); GLOMERULAR FILTRATION RATE > 60.0 (>51); GLUCOSE, FASTING 94 MG/DL (70-100); POTASSIUM SERUM 3.4 MEQ/L (3.5-5.1); SODIUM LEVEL 145 MEQ/L (136-145); THYROID STIMULATING HORMONE 0.924 uIU/ML (0.358-3.740); TOTAL PROTEIN 6.6 GM/DL (6.4-8.2)
[2018-04-24 00:06] LABS: TISSUE TRANSGLUTAMINASE IgA <2 U/mL (0-3)
== END ==
LOC: M LAB 09:33
DX: R19.7 Diarrhea, unspecified (principal)
CPT/HCPCS: 36415

== ENCOUNTER → 2018-04-22 | Outpatient (CLI) | payer OTHER ==
[2018-04-22 10:17] LABS: BASO % 0.6 % (0.0-1.0); EOS % 0.5 % (0.0-3.0); HEMATOCRIT 38.8 % (36.0-47.0); HEMOGLOBIN 12.6 g/dl (12.0-15.5); IMMATURE GRANULOCYTE % 0.2 % (0-3.0); LYMPH # 1.5 10^3/uL (1.5-4.5); LYMPH % 23.4 % (24.0-44.0); MEAN CORPUSCULAR HEMOGLOBIN 33.9 pg (27.0-33.0); MEAN CORPUSCULAR HGB CONC 32.5 g/dl (32.0-36.5); MEAN CORPUSCULAR VOLUME 104.3 fl (80.0-96.0); MONO # 0.6 10^3/uL (0.0-0.8); MONO % 8.8 % (0.0-5.0); NEUTROPHILS # 4.2 10^3/uL (1.8-7.7); NEUTROPHILS % 66.5 % (36.0-66.0); PLATELET COUNT, AUTOMATED 210 10^3/uL (150-450); RED BLOOD COUNT 3.72 10^6/uL (4.00-5.40); RED CELL DISTRIBUTION WIDTH 12.2 % (11.5-14.5); WHITE BLOOD COUNT 6.3 10^3/uL (4.0-10.0)
[2018-04-22 10:31] LABS: APPEARANCE, URINE CLOUDY (CLEAR); BACTERIA, URINE AUTO 1+ (NEGATIVE); BILIRUBIN, URINE AUTO NEGATIVE (NEGATIVE); BLOOD, URINE BLOOD NEGATIVE (NEGATIVE); COLOR, URINE YELLOW (YELLOW); GLUCOSE, URINE (UA) AUTO NEGATIVE (NEGATIVE); KETONE, URINE AUTO NEGATIVE (NEGATIVE); LEUKOCYTE ESTERASE, URINE AUTO 3+ (NEGATIVE); MUCUS, URINE SMALL (NEGATIVE); NITRITE, URINE AUTO NEGATIVE (NEGATIVE); PROTEIN, URINE AUTO NEGATIVE (NEGATIVE); RBC, URINE AUTO 5 /HPF (0-3); SQUAMOUS EPITHELIAL CELL UR AU 17 /HPF (0-6); UROBILINOGEN, URINE AUTO 0.2 mg/dL (0.0-2.0); WBC, URINE AUTO 22 /HPF (0-3)
[2018-04-22 10:43] LABS: ERYTHROCYTE SEDIMENTATION RATE 11 mm/hr (0-30)
[2018-04-22 10:48] LABS: ALBUMIN 3.3 GM/DL (3.2-5.2); ALBUMIN/GLOBULIN RATIO 1.03 (1.00-1.93); ALKALINE PHOSPHATASE 69 U/L (45-117); ALT/SGPT 33 U/L (12-78); ANION GAP 6 MEQ/L (8-16); AST/SGOT 15 U/L (7-37); BILIRUBIN,TOTAL 0.3 MG/DL (0.2-1.0); BLOOD UREA NITROGEN 6 MG/DL (7-18); C REACTIVE PROTEIN QUANTITATIV < 0.30 MG/DL (0.00-0.30); CALCIUM LEVEL 8.4 MG/DL (8.5-10.1); CARBON DIOXIDE LEVEL 29 MEQ/L (21-32); CHLORIDE LEVEL 109 MEQ/L (98-107); CHOLESTEROL LEVEL 186 MG/DL (<200); CHOLESTEROL RISK RATIO 2.513 (<5); CPK CREATINE PHOSPHOKINASE 62 U/L (26-192); CREATININE FOR GFR 0.94 MG/DL (0.55-1.30); FREE T4 0.85 NG/DL (0.76-1.46); GLOMERULAR FILTRATION RATE > 60.0 (>51); GLUCOSE, FASTING 92 MG/DL (70-100); HDL CHOLESTEROL 74 MG/DL (>40); LDL CHOLESTEROL 75.6 MG/DL (<100); NON-HDL-C 112 MG/DL; POTASSIUM SERUM 3.3 MEQ/L (3.5-5.1); SODIUM LEVEL 144 MEQ/L (136-145); THYROID STIMULATING HORMONE 0.935 uIU/ML (0.358-3.740); TOTAL PROTEIN 6.5 GM/DL (6.4-8.2); TRIGLYCERIDES LEVEL 182 MG/DL (<150)
[2018-04-22 11:01] LABS: ESTIMATED AVERAGE GLUCOSE 94 MG/DL (60-110); HEMOGLOBIN A1c 4.9 %
[2018-04-22 11:20] LABS: THYROGLOBULIN ANTIBODY 34.7 U/ML (<60.0); THYROID PEROXIDASE ANTIBODY 39.1 U/ML (<60.0); TOTAL 25(OH) VITAMIN D 38.4 NG/ML (30.0-100.0)
[2018-04-22 11:21] LABS: VITAMIN B12 LEVEL 352 PG/ML (247-911)
== END ==
LOC: M LAB 09:30
DX: I10 Essential (primary) hypertension (principal); M06.9 Rheumatoid arthritis, unspecified; E78.5 Hyperlipidemia, unspecified; E07.89 Other specified disorders of thyroid; E55.9 Vitamin D deficiency, unspecified
CPT/HCPCS: 82550

== ENCOUNTER → 2018-04-22 | Outpatient (REF) | payer OTHER | LOC: M LAB REF 12:29 | DX: K21.9 Gastro-esophageal reflux disease without esophagitis (principal) ==

== ENCOUNTER → 2018-05-12 | Outpatient (CLI) | payer OTHER | LOC: M RAD 15:31 | DX: R19.7 Diarrhea, unspecified (principal) | CPT/HCPCS: 74021 ==

== ENCOUNTER → 2018-06-25 | Outpatient (CLI) | payer OTHER ==
[~2018-06-25] MED LIST changes: -ADVA115INH INH; -AMLO2.5T PO; -AMLO5TAB2 PO; -BENA25CA4 PO; -BUPR15TA PO; -CALTTAB10 PO; -CLON0.2T PO; -DEXI60CA PO; -DEXI60CA2 PO; -DRIS50002 PO; -FOLI1TAB4 PO; -FOLI1TAB86 PO; -FURO20TA2 PO; -GABA400C PO; -GABA800T PO; -HYDR-3363 PO; -HYDR5TAB23 PO; -HYDRO; -IPRA1POW; +ISOVUE-370 76% 100ML VIAL (Q9967) As Ordered; -LAMO50TA PO; -LANS30CA PO; -LOSA100T36; -LOSA100T36 PO; -METH2.5T PO; -METH2.5TA PO; -METO50TA7 PO; -REGL10TA6 PO; -ROBA500T PO; -SERO50TA PO; -SIMV40TA2 PO; -TRAZ50TA2 PO; -VENL37TA PO; -VENTAER INH; -VICO7.5T11 PO; -ZOFR8TAB PO; -ZYRT10CA PO
== END ==
LOC: M RAD 14:44
DX: J43.9 Emphysema, unspecified (principal); R91.8 Other nonspecific abnormal finding of lung field; R51 Headache
CPT/HCPCS: Q9967

== ENCOUNTER → 2018-07-03 | Outpatient (CLI) | payer OTHER | LOC: M WHC 14:37 | DX: M85.80 Other specified disorders of bone density and structure, unspecified site (principal); M81.0 Age-related osteoporosis without current pathological fracture | CPT/HCPCS: 77080 ==

== ENCOUNTER → 2018-07-07 | Outpatient (CLI) | payer OTHER | LOC: M RAD 13:03 | DX: E04.2 Nontoxic multinodular goiter (principal) | CPT/HCPCS: 76536 ==

== ENCOUNTER → 2018-07-07 | Outpatient (CLI) | payer OTHER ==
[~2018-07-07] MED LIST changes: +GASTROGRAFIN SOLUTION 30ML (Q9963) As Ordered
== END ==
LOC: M RAD 13:05
DX: R19.7 Diarrhea, unspecified (principal); K43.9 Ventral hernia without obstruction or gangrene; R10.84 Generalized abdominal pain
CPT/HCPCS: Q9963

== ENCOUNTER → 2018-07-17 | Outpatient (CLI) | payer OTHER ==
[2018-07-17 12:51] LABS: BASO % 0.7 % (0.0-1.0); EOS # 0.3 10^3/uL (0.0-0.50); EOS % 4.4 % (0.0-3.0); HEMATOCRIT 36.6 % (36.0-47.0); IMMATURE GRANULOCYTE % 0.2 % (0-3.0); LYMPH # 2.2 10^3/uL (1.5-4.5); LYMPH % 39.6 % (24.0-44.0); MEAN CORPUSCULAR HEMOGLOBIN 34.3 pg (27.0-33.0); MEAN CORPUSCULAR HGB CONC 32.8 g/dl (32.0-36.5); MEAN CORPUSCULAR VOLUME 104.6 fl (80.0-96.0); MONO # 0.3 10^3/uL (0.0-0.8); MONO % 5.7 % (0.0-5.0); NEUTROPHILS # 2.8 10^3/uL (1.8-7.7); NEUTROPHILS % 49.4 % (36.0-66.0); PLATELET COUNT, AUTOMATED 230 10^3/uL (150-450); RED CELL DISTRIBUTION WIDTH 12.9 % (11.5-14.5); WHITE BLOOD COUNT 5.6 10^3/uL (4.0-10.0)
[2018-07-17 13:21] LABS: ALBUMIN 3.5 GM/DL (3.2-5.2); ALBUMIN/GLOBULIN RATIO 1.17 (1.00-1.93); ALKALINE PHOSPHATASE 66 U/L (45-117); ALT/SGPT 40 U/L (12-78); ANION GAP 6 MEQ/L (8-16); AST/SGOT 26 U/L (7-37); BILIRUBIN,TOTAL 0.3 MG/DL (0.2-1.0); BLOOD UREA NITROGEN 9 MG/DL (7-18); CALCIUM LEVEL 8.9 MG/DL (8.5-10.1); CARBON DIOXIDE LEVEL 27 MEQ/L (21-32); CHLORIDE LEVEL 109 MEQ/L (98-107); CHOLESTEROL LEVEL 185 MG/DL (<200); CHOLESTEROL RISK RATIO 2.936 (<5); CPK CREATINE PHOSPHOKINASE 78 U/L (26-192); CREATININE FOR GFR 1.02 MG/DL (0.55-1.30); FREE T4 0.89 NG/DL (0.76-1.46); GLOMERULAR FILTRATION RATE > 60.0 (>51); GLUCOSE, FASTING 88 MG/DL (70-100); HDL CHOLESTEROL 63 MG/DL (>40); LDL CHOLESTEROL 78 MG/DL (<100); NON-HDL-C 122 MG/DL; POTASSIUM SERUM 3.8 MEQ/L (3.5-5.1); SODIUM LEVEL 142 MEQ/L (136-145); TOTAL PROTEIN 6.5 GM/DL (6.4-8.2); TRIGLYCERIDES LEVEL 220 MG/DL (<150)
[2018-07-17 14:13] LABS: TOTAL 25(OH) VITAMIN D 53.7 NG/ML (30.0-100.0)
[2018-07-17 14:14] LABS: VITAMIN B12 LEVEL 339 PG/ML (247-911)
[2018-07-17 15:19] LABS: ESTIMATED AVERAGE GLUCOSE 91 MG/DL (60-110); HEMOGLOBIN A1c 4.8 %
== END ==
LOC: M LAB 12:08
DX: I10 Essential (primary) hypertension (principal); E78.5 Hyperlipidemia, unspecified; E07.89 Other specified disorders of thyroid; E55.9 Vitamin D deficiency, unspecified; R91.1 Solitary pulmonary nodule
CPT/HCPCS: 82550

== ENCOUNTER 2018-09-09 14:24 | Emergency (ER) | payer OTHER ==
[~2018-09-09] VITALS: Ht 157.5 cm; Wt 70.5 kg
[~2018-09-09 14:24] MED LIST changes: +ADVA115INH INH; +AMLO2.5T PO; +AMLO5TAB6 PO; +ARNU1INH; +BENA25CA4 PO; +BUPR15TA PO; +CALTTAB10 PO; +CEFD300CAP FT; +CLON0.2T PO; +DEXI60CA PO; +DEXI60CA2 PO; +DIFL200T PO; +DOXY100C37 PO; +DRIS50003 PO; +FOLI1TAB11 PO; +FOLI1TAB86 PO; +FURO20TA2 PO; +GABA400C PO; +GABA800T4 PO; -GASTROGRAFIN SOLUTION 30ML (Q9963) As Ordered; +HYDR-3363 PO; +HYDR5TAB23 PO; +HYDRO; +IPRA1POW; -ISOVUE-370 76% 100ML VIAL (Q9967) As Ordered; +LAMO50TA PO; +LANS30CA PO; +LEVOTAB10; +LOSA100T36 PO; +LOSA100T50; +LYRI75CA; +METH2.5T PO; +METH2.5T48 PO; +METO50TA7 PO; +NORCOTAB PO; +PRED20TA PO; +PREM.6256; +REGL10TA6 PO; +ROBA500T PO; +SERO50TA PO; +SIMV40TA2 PO; +STIO1AER; +TRAZ50TA2 PO; +VENL37TA PO; +VENTAER INH; +VICO7.5T11 PO; +ZOFR8TAB24 PO; +ZYRT10CA PO; +[UNRECOGNIZED DRUG - CODE] XX
[2018-09-09] MEDS ORDERED: METOCLOPRAMIDE INJ 10MG/2ML VIAL (J2765) IV ONE (15:15)
[2018-09-09] MEDS ORDERED: NS 1,000 ML IV ONE (15:15)
--- NOTE | 2018-09-09 15:49 | REP ---
Right tib-fib series: Four views. History: Injury in a fall. Comparison is made with right knee radiographs from September 04, 2012. Findings: Four views of the right tib-fib demonstrate medial and lateral compartment osteoarthritis at the knee. Mild patellofemoral spurring and irregularity is seen as well. No fracture or subluxation is seen. Impression: Osteoarthritis at the knee. No fracture or other acute bony abnormality. Electronically Signed by Avery Bryan MD 09/09/2018 06:55 P
--- NOTE | 2018-09-09 15:50 | REP ---
Right ankle series: Four views. History: Injury in a fall. Findings: Four views right ankle demonstrate moderate soft tissue swelling anterolateral aspect of the right ankle. Ankle mortise is intact. No fracture is seen. Impression: No fracture noted. Anterolateral soft tissue swelling. Electronically Signed by Avery Bryan MD 09/09/2018 06:55 P
--- NOTE | 2018-09-09 15:57 | REP ---
CT Head without contrast HISTORY: Injury COMPARISON: 09/14/2010 There is no intraparenchymal hemorrhage, acute infarct, mass or midline shift. The ventricular system is normal in appearance. There is no extra cerebral collection. There is no fracture. The visualized sinuses are clear. IMPRESSION: There is no intracranial lesion. Electronically Signed by Yung Lawson MD 09/09/2018 03:48 P
[2018-09-09] MEDS ORDERED: ACETAMINOPHEN 325 MG TAB PO ONE (16:15)
[2018-09-09] MEDS ORDERED: TRAM50TA2 PO (16:31)
[2018-09-09 16:37] VITALS: BP 178/85
== END 2018-09-09 16:54 | disposition home or self-care (01) ==
LOC: M ED 14:24
DX: S96.211A Strain of intrinsic muscle and tendon at ankle and foot level, right foot, initial encounter (principal); S80.12XA Contusion of left lower leg, initial encounter; R51 Headache; W10.8XXA Fall (on) (from) other stairs and steps, initial encounter; Y92.098 Other place in other non-institutional residence as the place of occurrence of the external cause; I11.9 Hypertensive heart disease without heart failure; Z88.6 Allergy status to analgesic agent; Z88.8 Allergy status to other drugs, medicaments and biological substances; Z79.899 Other long term (current) drug therapy
CPT/HCPCS: 70450; 73590; 73610; 96374; 99284; J2765

== ENCOUNTER → 2018-11-05 | Outpatient (REF) | payer OTHER ==
[~2018-11-05] MED LIST changes: +TRAM50TA2 PO
== END ==
LOC: M LAB REF 13:09
PROVIDERS: ATTEND Internal Medicine Pulmonary Disease
DX: J43.2 Centrilobular emphysema (principal)

== ENCOUNTER → 2018-11-24 | Outpatient (CLI) | payer OTHER ==
--- NOTE | 2018-11-24 16:25 | REPMRS ---
Patient History The patient states she has not had a clinical breast exam in over a year. No known family history of cancer. Digital Mammo Screening Bilat: November 24, 2018 - Exam #: [id number] Bilateral CC and MLO view(s) were taken. Technologist: Adali Grant, Technologist Prior study comparison: November 20, 2017, bilateral digital mammo screening bilat performed at [facility]. September 20, 2016, bilateral digital mammo screening bilat performed at [facility]. July 07, 2015, bilateral digital mammo screening bilat performed at [facility]. FINDINGS: There are scattered fibroglandular densities. There has been no change in the appearance of the mammogram from the prior studies. There is a mild amount of scattered fibroglandular density which is fairly symmetric. There is no interval development of dominant mass, architectural distortion, or clustered microcalcification suggestive of malignancy. 3-D tomosynthesis shows no additional findings. Assessment: BI-RADS/ACR category 1 mammogram. Negative Mammogram. Recommendation Routine screening mammogram of both breasts in 1 year (for women over age 40). This patient's Lifetime Breast Cancer RIsk is estimated at 7.0 %. This mammogram was interpreted with the aid of an FDA-approved computer-aided dectection system. Electronically Signed By: Ciaran Bryan MD 11/24/18 [id number]
== END ==
LOC: M RAD 14:06
PROVIDERS: ATTEND Obstetrics & Gynecology Obstetrics
DX: Z12.31 Encounter for screening mammogram for malignant neoplasm of breast (principal)

== ENCOUNTER → 2018-11-24 | Outpatient (REF) | payer OTHER | LOC: M LAB REF 17:15 | PROVIDERS: ATTEND Internal Medicine Pulmonary Disease | DX: Z12.31 Encounter for screening mammogram for malignant neoplasm of breast (principal) ==

== ENCOUNTER → 2019-01-05 | Outpatient (CLI) | payer OTHER ==
[~2019-01-05] MED LIST changes: +HYDR-3715 PO; -NORCOTAB PO
--- NOTE | 2019-01-18 17:11 | REP ---
CT chest without contrast: Repeat dictation. History: Centrolobular emphysema. The study was acquired on January 05, 2019 and is presented to me for repeat dictation on January 18, 2019. Comparison CT study September 09, 2018 the most remote comparison chest CT study is September 22, 2015. The most recent prior study of September 09, 2018 was read as showing a new 7 mm right middle lobe nodule. CT findings: The recently identified 7 mm right middle lobe nodule is again seen although it appears smaller today than on the most recent prior study. 5 mm. There are stable tiny subcentimeter pleural-based nodules one in the right upper lobe and the other in the left upper lobe posteriorly. These are unchanged. The previously noted ground-glass opacity nodule in the left upper lobe is again seen. This has irregular somewhat spiculated margins and a greatest transverse diameter on axial images of 2.2 the centimeters. The 2.3 cm measurement is made on sagittal multiplanar re-formation image. It appears to be unchanged from September 09, 2018. It is probably a little larger than it was September 22, 2015. There are scattered emphysematous changes in the lung love as before. No pleural effusion is seen. No hilar or mediastinal mass or adenopathy is observed. No adrenal lesion is seen. There are clips in the gallbladder fossa. No bony destructive lesion is seen. Impression: The most recently seen right middle lobe nodule has decreased in size. The larger ground-glass opacity nodule in the left upper lobe is again seen unchanged from most recent study of September 27, 2018, 22 mm in greatest diameter. Probably very slightly larger than it was September 22, 2015. Electronically Signed by Avery Bryan MD 01/18/2019 07:37 P
== END ==
LOC: M RAD 15:10
PROVIDERS: ATTEND Internal Medicine Pulmonary Disease
DX: J43.2 Centrilobular emphysema (principal)

== ENCOUNTER 2019-05-12 15:27 | Emergency (ER) | payer OTHER ==
[~2019-05-12] VITALS: Ht 157.5 cm; Wt 66.9 kg
[~2019-05-12 15:27] MED LIST changes: -VICO7.5T11 PO; +VICO7.5T12 PO
[2019-05-12] MEDS ORDERED: NITROGLYCERIN 0.4 MG SUBL TABLET As Ordered ONE (15:42)
[2019-05-12] MEDS ORDERED: NITROGLYCERIN 0.4 MG SUBL TABLET SL PRN (15:45)
[2019-05-12 16:03] LABS: BASO # 0.1 10^3/uL (0.0-0.2); BASO % 0.8 % (0.0-1.0); EOS # 0.4 10^3/uL (0.0-0.5); EOS % 4.7 % (0.0-3.0); HEMATOCRIT 38.7 % (36.0-47.0); HEMOGLOBIN 13.1 g/dl (12.0-15.5); LYMPH # 2.8 10^3/uL (1.5-5.0); LYMPH % 36.5 % (24.0-44.0); MEAN CORPUSCULAR HEMOGLOBIN 33.7 pg (27.0-33.0); MEAN CORPUSCULAR HGB CONC 33.9 g/dl (32.0-36.5); MEAN CORPUSCULAR VOLUME 99.5 fl (80.0-96.0); MONO # 0.4 10^3/uL (0.0-0.8); MONO % 5.5 % (0.0-5.0); NEUTROPHILS % 52.2 % (36.0-66.0); PLATELET COUNT, AUTOMATED 278 10^3/uL (150-450); RED BLOOD COUNT 3.89 10^6/uL (4.00-5.40); WHITE BLOOD COUNT 7.6 10^3/uL (4.0-10.0)
--- NOTE | 2019-05-12 16:07 | REP ---
Clinical: Chest pain . Comparison: 09/26/2017 . Findings: The mediastinum and cardiac silhouette are stable and within normal limits for portable technique. The lung love are clear without acute consolidation, effusion, or pneumothorax. Skeletal structures are intact. Impression: No acute cardiopulmonary process appreciated. Electronically Signed by Dusty Tariq MD 05/12/2019 03:58 P
[2019-05-12 16:10] VITALS: BP 137/70
[2019-05-12 16:18] LABS: INR 1.11
[2019-05-12 16:33] LABS: ALBUMIN 3.7 GM/DL (3.2-5.2); ALT/SGPT 253 U/L (12-78); BILIRUBIN,DIRECT 0.2 MG/DL (0.0-0.2); BILIRUBIN,TOTAL 0.6 MG/DL (0.2-1.0); BLOOD UREA NITROGEN 17 MG/DL (7-18); CARBON DIOXIDE LEVEL 22 MEQ/L (21-32); CHLORIDE LEVEL 109 MEQ/L (98-107); CK-MB VALUE MASS 1.7 NG/ML (<3.6); CPK CREATINE PHOSPHOKINASE 173 U/L (26-192); CREATININE FOR GFR 1.12 MG/DL (0.55-1.30); GLOMERULAR FILTRATION RATE > 60.0 (>45); GLUCOSE, FASTING 97 MG/DL (70-100); LIPASE 168 U/L (73-393); MB/CK RELATIVE INDEX 0.98 (< OR =4); POTASSIUM SERUM 3.9 MEQ/L (3.5-5.1); SODIUM LEVEL 141 MEQ/L (136-145); TOTAL PROTEIN 7.5 GM/DL (6.4-8.2); TROPONIN I < 0.02 NG/ML (< 0.10)
[2019-05-12] MEDS ORDERED: GABAPENTIN 400 MG CAP PO ONE (17:00)
[2019-05-12] MEDS ORDERED: METHOTREXATE 2.5 MG TAB (J8610 PER 2.5MG) PO ONE (17:00)
[2019-05-12] MEDS ORDERED: METH2.5T48 PO (18:30)
[2019-05-12] MEDS ORDERED: GABA800T4 PO (18:30)
[2019-05-12 19:14] VITALS: BP 151/79
--- NOTE | 2019-05-12 20:40 | ECGEPIP ---
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
[2019-05-14 13:08] LABS: HEPATITIS B SURFACE ANTIGEN NEGATIVE (NEGATIVE)
[2019-05-14 13:12] LABS: HEPATITIS C VIRUS ABY INDEX 0.7 INDEX (<0.8)
[2019-05-14 13:35] LABS: HEPATITIS B CORE ANTIBODY IGM NEGATIVE (NEGATIVE)
[2019-05-14 13:37] LABS: HEPATITIS A ANTIBODY IGM NEGATIVE (NEGATIVE)
== END 2019-05-12 19:15 | disposition home or self-care (01) ==
LOC: M ED 15:27
DX: R07.9 Chest pain, unspecified (principal); F17.220 Nicotine dependence, chewing tobacco, uncomplicated; I10 Essential (primary) hypertension; Z79.899 Other long term (current) drug therapy
CPT/HCPCS: 71045; 80053; 82248; 82550; 82553; 83690; 85025; 85610; 86705; 86709; 86803; 87340; 93005; 93041; 94760; 99285; J8610

== ENCOUNTER → 2019-05-20 | Outpatient (CLI) | payer OTHER ==
--- NOTE | 2019-05-20 16:52 | REP ---
MRI RIGHT SHOULDER: TECHNIQUE: Axial T2 fat sat, coronal oblique T1, T2 fat sat, post arthrogram axial T1 fat sat, proton density, coronal oblique T1 fat sat, T2 sat, sagittal oblique T2 fat sat, ABER T1 fat sat. There is increased signal on T2 weighted images involving the supraspinatus tendon compatible with a moderate degree of tendinopathy with confluent signal anteriorly consistent with a partial full thickness tear. There is mild tendinosis of the subscapularis. There are mild hypertrophic degenerative changes of the acromioclavicular joint. There is mild downward sloping of the acromion. The acromion is type 2. The biceps tendon is within the bicipital groove with no tenosynovitis. There is no Hill Sach's deformity. The deltoid muscle demonstrates no abnormal signal. There is fraying of the biceps labral complex and superior labrum, with partial tearing. There is a diffuse tear of the anterior labrum. No paralabral cyst is seen. Scattered subchondral marrow edema and cystic change is seen in the lateral aspect of the humeral head and throughout the glenoid. There is moderately severe chondromalacia at the glenohumeral joint. There is a tiny amount of fluid in the subacromial subdeltoid bursae. IMPRESSION: Moderate tendinosis supraspinatus tendon with a partial full thickness tear at the anterior aspect. Mild tendinosis subscapularis tendon. Mild hypertrophic degenerative changes of the acromioclavicular joint with a type 2 acromion. Diffuse fraying and partial tear of the biceps labral complex and superior labrum. There is a diffuse tear of the anterior labrum. Moderate subchondral marrow edema and cystic change in the humeral head and glenoid with moderately severe chondromalacia at the glenohumeral joint. Electronically Signed by Adolfo Lim MD 05/20/2019 05:03 P
--- NOTE | 2019-05-20 16:58 | REP ---
MRI LEFT SHOULDER: TECHNIQUE: Axial T2 fat sat, coronal oblique T1, T2 fat sat, post arthrogram axial T1 fat sat, proton density, coronal oblique T1 fat sat, T2 sat, sagittal oblique T2 fat sat, ABER T1 fat sat. The supraspinatus tendon demonstrates increased signal on T2-weighted images, focally confluent just inferior to the tip of the acromion, with a focal partial full thickness tear at that location approximately 11 mm in length. There is mild subscapularis tendinopathy. There is mild hypertrophic degenerative changes of the acromioclavicular joint with downward sloping of the acromion. The acromion is type 2. The biceps tendon is within the bicipital groove with no tenosynovitis. There is no Hill-Sachs deformity. The deltoid muscle demonstrates no abnormal signal. There is fraying of the biceps labral complex and superior labrum. Otherwise no labral tear is seen. There is moderately severe chondromalacia of the glenohumeral joint. There is mild subchondral cystic change in the superolateral humeral head. There is a more moderate degree of subchondral cystic change in the glenoid. There is mild to moderate fluid in the subacromial subdeltoid bursa. IMPRESSION: Fairly high grade partial full thickness tear supraspinatus tendon. Mild subscapularis tendinopathy. Mild hypertrophic degenerative changes acromioclavicular joint with a type 2 acromion. There is fraying of the biceps labral complex and superior labrum without other evidence of a discrete labral tear. Moderately severe chondromalacia of the glenohumeral joint. Subchondral cystic changes glenoid. Mild to moderate fluid in the subacromial subdeltoid bursa. Electronically Signed by Adolfo Lim MD 05/20/2019 05:06 P
== END ==
LOC: M RAD 14:37
PROVIDERS: ATTEND Orthopaedic Surgery Sports Medicine
DX: M25.512 Pain in left shoulder (principal); M75.21 Bicipital tendinitis, right shoulder; M94.211 Chondromalacia, right shoulder; M94.212 Chondromalacia, left shoulder; M75.121 Complete rotator cuff tear or rupture of right shoulder, not specified as traumatic

== ENCOUNTER → 2019-10-05 | Outpatient (CLI) | payer OTHER ==
[~2019-10-05] MED LIST changes: -SIMV40TA2 PO; +SIMV40TA20 PO
[2019-10-05 10:55] LABS: FOLATE 10.3 NG/ML
== END ==
LOC: M LAB 09:07
PROVIDERS: ATTEND Psychiatry & Neurology Neurology
DX: R26.89 Other abnormalities of gait and mobility (principal)

== ENCOUNTER → 2019-10-05 | Outpatient (CLI) | payer OTHER ==
--- NOTE | 2019-10-06 04:13 | REP ---
Clinical: Left upper quadrant pain. Technique: Real time lees scale ultrasound examination using curved array transducer. Findings: Spleen is normal in contour, size, echogenicity without focal splenic lesion identified and measures 9.3 x 3.2 x 8.5 cm. Left kidney is normal in reniform shape without hydronephrosis and measures 10.2 x 5.9 x 4.2 cm. No ascites in the visualized right upper quadrant. Impression: Normal left upper quadrant ultrasound. Electronically Signed by Dusty Tariq MD 10/06/2019 04:06 A
== END ==
LOC: M RAD 09:00
PROVIDERS: ATTEND Surgery
DX: R10.9 Unspecified abdominal pain (principal)

== ENCOUNTER → 2019-10-08 | Outpatient (REF) | payer OTHER ==
[2019-10-08 19:03] LABS: CREATININE FOR GFR 1.19 MG/DL (0.55-1.30); GLOMERULAR FILTRATION RATE 59.7 (>45)
== END ==
LOC: M LABDRAW1 13:19
PROVIDERS: ATTEND Physician Assistant
DX: E87.6 Hypokalemia (principal)

== ENCOUNTER → 2019-10-19 | Outpatient (REF) | payer OTHER ==
[2019-10-19 17:05] LABS: PLATELET COUNT, AUTOMATED 271 10^3/uL (150-450)
[2019-10-19 17:16] LABS: INR 1.01
[2019-10-19 17:17] LABS: PARTIAL THROMBOPLASTIN TIME 26.1 SECONDS (25.0-38.4)
== END ==
LOC: M LABDRAW1 16:37
PROVIDERS: ATTEND Physician Assistant
DX: M47.22 Other spondylosis with radiculopathy, cervical region (principal); Z01.812 Encounter for preprocedural laboratory examination

== ENCOUNTER → 2019-11-19 | Outpatient (CLI) | payer OTHER ==
[~2019-11-19] MED LIST changes: +ISOVUE-370 76% 100ML VIAL (Q9967) As Ordered ONE
--- NOTE | 2019-11-19 19:33 | REP ---
HISTORY: Followup pulmonary nodule. COMPARISON: All priors were reviewed, the latest of which is dated 01/05/2019. CONTRAST: 100 mL Isovue-370. The mediastinum and pulmonary janet are unchanged. Nonenlarged lymph nodes are present. There are no pleural or pericardial effusions. There is no change in the imaged upper abdomen or imaged osseous structures. Evaluation of the lung love show lung field hyperexpansion and scattered cystic air spaces, status quo. There is an asymmetrical opacity in the left upper lobe which has gotten smaller from 01/05/2019, its maximal dimension on the latest prior exam is 2.2 cm and today it is 1.6 cm. There are stable scattered pulmonary parenchymal and pleural based nodules with no evidence of a new abnormal nodule, mass or opacity. IMPRESSION: 1. Chronic lung field changes as described above. 2. Persistent but smaller left upper lobe ground glass opacity as described above. Electronically Signed by Gregory Truong DO 11/19/2019 07:52 P
== END ==
LOC: M RAD 17:47
PROVIDERS: ATTEND Family Medicine
DX: R91.1 Solitary pulmonary nodule (principal)
CPT/HCPCS: 71260; Q9967

== ENCOUNTER → 2020-03-29 | Outpatient (CLI) | payer OTHER ==
[~2020-03-29] MED LIST changes: +AMLO1TAB24 PO; -AMLO5TAB6 PO; -ISOVUE-370 76% 100ML VIAL (Q9967) As Ordered ONE
[2020-03-29 19:10] LABS: BASO # 0.1 10^3/uL (0.0-0.2); BASO % 0.9 % (0.0-1.0); EOS # 0.1 10^3/uL (0.0-0.5); EOS % 0.9 % (0.0-3.0); HEMATOCRIT 39.6 % (36.0-47.0); HEMOGLOBIN 12.5 g/dl (12.0-15.5); LYMPH # 1.9 10^3/uL (1.5-5.0); LYMPH % 29.8 % (24.0-44.0); MEAN CORPUSCULAR HEMOGLOBIN 32.8 pg (27.0-33.0); MEAN CORPUSCULAR HGB CONC 31.6 g/dl (32.0-36.5); MEAN CORPUSCULAR VOLUME 103.9 fl (80.0-96.0); MONO # 0.5 10^3/uL (0.0-0.8); MONO % 7.8 % (0.0-5.0); NEUTROPHILS # 3.9 10^3/uL (1.5-8.5); NEUTROPHILS % 60.4 % (36.0-66.0); PLATELET COUNT, AUTOMATED 256 10^3/uL (150-450); RED BLOOD COUNT 3.81 10^6/uL (4.00-5.40); WHITE BLOOD COUNT 6.5 10^3/uL (4.0-10.0)
[2020-03-29 19:45] LABS: ALBUMIN 3.6 GM/DL (3.2-5.2); ALT/SGPT 29 U/L (12-78); BILIRUBIN,TOTAL 0.3 MG/DL (0.2-1.0); BLOOD UREA NITROGEN 8 MG/DL (7-18); CALCIUM LEVEL 8.8 MG/DL (8.8-10.2); CARBON DIOXIDE LEVEL 27 MEQ/L (21-32); CHLORIDE LEVEL 109 MEQ/L (98-107); CHOLESTEROL LEVEL 149 MG/DL (<200); CHOLESTEROL RISK RATIO 4.257 (<5); CREATININE FOR GFR 1.13 MG/DL (0.55-1.30); FREE T4 0.93 NG/DL (0.76-1.46); GLOMERULAR FILTRATION RATE > 60.0 (>45); GLUCOSE, FASTING 154 MG/DL (70-100); HDL CHOLESTEROL 35 MG/DL (>40); HEMOGLOBIN A1c 5.3 %; LDL CHOLESTEROL 59 MG/DL (<100); NON-HDL-C 114 MG/DL; POTASSIUM SERUM 3.4 MEQ/L (3.5-5.1); SODIUM LEVEL 143 MEQ/L (136-145); TOTAL PROTEIN 6.9 GM/DL (6.4-8.2); TRIGLYCERIDES LEVEL 277 MG/DL (<150)
[2020-03-29 21:48] LABS: TOTAL 25(OH) VITAMIN D 60.8 NG/ML (30.0-100.0)
[2020-03-29 21:49] LABS: VITAMIN B12 LEVEL 351 PG/ML (247-911)
[2020-04-24 14:43] LABS: CLASS DESCRIPTION 0 (.); F047-IGE GARLIC <0.10 kU/L (Class 0); F220-IGE CINNAMON <0.10 kU/L (Class 0); F279-IGE CHILI PEPPER <0.10 kU/L (Class 0); F280-IGE BLACK PEPPER <0.10 kU/L (Class 0); IGE JALAPENO PEPPER <0.35 kU/L (<0.35)
== END ==
LOC: M PLALAB 15:36
PROVIDERS: ATTEND Allergy & Immunology Allergy
DX: T78.1XXD Other adverse food reactions, not elsewhere classified, subsequent encounter (principal); I10 Essential (primary) hypertension; E78.5 Hyperlipidemia, unspecified; J44.9 Chronic obstructive pulmonary disease, unspecified; R91.1 Solitary pulmonary nodule; M51.36 Other intervertebral disc degeneration, lumbar region; G47.33 Obstructive sleep apnea (adult) (pediatric)

== ENCOUNTER → 2020-05-20 | Outpatient (CLI) | payer OTHER | LOC: M LABSMTC 10:52 | PROVIDERS: ATTEND Physical Medicine & Rehabilitation | DX: Z11.59 Encounter for screening for other viral diseases (principal); Z20.828 Contact with and (suspected) exposure to other viral communicable diseases ==

== ENCOUNTER → 2020-07-12 | Outpatient (CLI) | payer OTHER | LOC: M LABSMTC 13:04 | PROVIDERS: ATTEND Physical Medicine & Rehabilitation | DX: Z01.818 Encounter for other preprocedural examination (principal) ==

== ENCOUNTER → 2020-08-24 | Outpatient (CLI) | payer OTHER ==
--- NOTE | 2020-08-27 23:23 | ECWPNPC ---
PATIENT NAME: CHARLES SAVAGE : 1960 GENDER: FEMALE VISIT DATE: 08/24/2020 DISCHARGE DATE: 08/24/20 1216 VISIT LOCKED DATE TIME: PHYSICIAN: DANILO BAEZA PHYSICIAN PAGER NO: ACTIVE RESOURCE: DANILO BAEZA REASON FOR APPOINTMENT 1. ABDOMINAL/BACK PAIN HISTORY OF PRESENT ILLNESS DEPRESSION SCREENING: PHQ-9 LITTLE INTEREST OR PLEASURE IN DOING THINGSNOT AT ALL FEELING DOWN, DEPRESSED, OR HOPELESSNEARLY EVERY DAY TROUBLE FALLING OR STAYING ASLEEP, OR SLEEPING TOO MUCHMORE THAN HALF THE DAYS FEELING TIRED OR HAVING LITTLE ENERGYNEARLY EVERY DAY POOR APPETITE OR OVEREATING NOT AT ALL FEELING BAD ABOUT YOURSELF-OR THAT YOU ARE A FAILURE OR HAVE LET YOURSELF OR YOUR FAMILY DOWN NOT AT ALL TROUBLE CONCENTRATING ON THINGS, SUCH READING THE NEWSPAPER OR WATCHING TELEVISION NEARLY EVERY DAY MOVING OR SPEAKING SO SLOWLY THAT OTHER PEOPLE COULD HAVE NOTICED. OR THE OPPOSITE- BEING SO FIDGETY OR RESTLESS THAT YOU HAVE BEEN MOVING AROUND A LOT MORE THAN USUALNOT AT ALL THOUGHTS THAT YOU WOULD BE BETTER OFF , OR OF HURTING YOURSELF IN SOME WAY?NOT AT ALL TOTAL SCORE:11 INTERPRETATIONMODERATE DEPRESSION PHQ-2 (2015 EDITION) LITTLE INTEREST OR PLEASURE IN DOING THINGS?NOT AT ALL FEELING DOWN, DEPRESSED, OR HOPELESS?NEARLY EVERY DAY TOTAL SCORE3 GENERAL: KNOWN PATIENT TO OUR CLINIC RETURNS FOR EVALUATION OF CHRONIC ABDOMINAL PAIN AND LOW BACK PAIN. PATIENT APPEARS SEDATED AND IS A POOR HISTORIAN. SHE IS NOT CLEAR ON WHAT MEDICATIONS SHE IS TAKING AND NOT TAKING. STATES THAT MEDICATION THAT SHE IS TAKING IS NOT HELPING. SHE HAS TRIED MULTIPLE NONNARCOTIC AND NARCOTIC PAIN MEDICATIONS OVER THE YEARS WITHOUT ANY IMPROVEMENT IN HER PAIN. PATIENT IS ON SEVERAL MEDICATIONS. REPORTING NORMAL BOWEL AND BLADDER FUNCTION. DEPRESSION SCORE IS HIGH TODAY. DENIES SUICIDAL IDEATIONS. FOLLOWS WITH MENTAL HEALTH ON A REGULAR BASIS. HISTORY OF RHEUMATOID ARTHRITIS. STATES SHE STOPPED METHOTREXATE SEVERAL MONTHS AGO. NOT CLEAR IF SHE IS FOLLOWING WITH RHEUMATOLOGY OR WHAT SHE IS DOING WITH HER MEDICATIONS. - - -. FALL RISK SCREENING: SCREENING :TWO OR MORE FALLS WITH INJURY IN THE PAST YEAR FRACTURED RIGHT FOOT IN 01/2020 AFTER FALLING PAIN SCREENING: PATIENT HAS A COMPLAINT OF ACUTE OR CHRONIC PAIN :YES LOCATION OF PAIN:ABDOMEN LOWER ABDOMEN AND RIGHT LOWER QUADRANT INTENSITY OF PAIN (SCALE OF 1 TO 10):10 WHAT DOES YOUR PAIN FEEL LIKE:ACHING, BURNING, SHARP, SHOOTING DURATION:CONTINOUS, CONSTANT PAIN IS INCREASED BY:ACTIVITIES, PROLONGED STANDING PAIN IS DECREASED BY:USE OF PAIN MEDICATIONS "WITHOUT MUCH RELIEF" NURSING NOTE: - - -. PAIN CENTER INTAKE QUESTIONS: DO YOU HAVE A HISTORY OF MRSA? :NO DO YOU TAKE A BLOOD THINNERS? :NO DO YOU HAVE ANY BLEEDING DISORDERS? :NO ANY NEW NUMBNESS OR WEAKNESS IN YOUR LEGS OR ARMS? :NO ANY PACEMAKER,DEFIBRILLATOR, OR DORSAL COLUMN STIMULATOR? :NO DO YOU HAVE ANY RASHES OR OPEN SORES? :NO ARE YOU ALLERGIC TO IV DYE? :NO ARE YOU DIABETIC? :NO ANY NEW PROBLEMS WITH YOUR MEDICATIONS? :YES "THEY DON'T WORK" HAVE YOU RECEIVED A VACCINE IN THE PAST 30 DAYS? :NO DO YOU PLAN TO RECEIVE A VACCINE IN THE NEXT 21 DAYS? :NO DO YOU NEED ANY PRESCRIPTION? :NO DO YOU TAKE ANY IMMUNOSUPPRESSIVE MEDICATIONS? :NO CURRENT MEDICATIONS TAKING AMLODIPINE BESYLATE 10 MG TABLET 1 TABLET ORALLY ONCE A DAY TAKING POTASSIUM CHLORIDE ER 20 MEQ TABLET EXTENDED RELEASE 1 TABLET WITH FOOD ORALLY ONCE A DAY TAKING LISINOPRIL 10 MG TABLET 1 TABLET ORALLY ONCE A DAY TAKING VITAMIN D (ERGOCALCIFEROL) 1.25 MG (19112 UT) CAPSULE 1 CAPSULE ORALLY TAKING QUETIAPINE FUMARATE 100 MG TABLET 1 TABLET AT BEDTIME ORALLY ONCE A DAY TAKING DULOXETINE HCL 60 MG CAPSULE DELAYED RELEASE PARTICLES 1 CAPSULE ORALLY ONCE A DAY, NOTES: TOTAL OF 90MG DAILY TAKING DULOXETINE HCL 30 MG CAPSULE DELAYED RELEASE PARTICLES 1 CAPSULE ORALLY ONCE A DAY TAKING FLEXERIL 10 MG TABLET 1 CAP(S) ORALLY THREE TIMES A DAY NEEDED TAKING AMLODIPINE 2.5MG TABLET 1 TAB(S) ORAL DAILY TAKING TIZANIDINE HCL 2 MG TABLET 1 TABLET NEEDED ORALLY FOR SPASMS AND PAIN BEFORE BEDTIME MAY REPEAT 4 HRS MDD 2 TAKING BELBUCA 75 MCG FILM 1 FILM TO THE GUM BUCALLY ONCE A DAY MDD1 TAKING ZYRTEC ALLERGY 10 MG TABLET 1 TABLET NEEDED ORALLY ONCE A DAY TAKING NEBULIZER/TUBING/MOUTHPIECE - - DIRECTED - DX 285.9, NEW TUBING AND MOUTHPIECE ONLY TAKING ALBUTEROL SULFATE (2.5 MG/3ML) 0.083% NEBULIZATION SOLUTION 3 ML INHALATION EVERY 6 HOURS NEEDED FOR SOB TAKING NITROSTAT 0.4MG TABLET SUBLINGUAL 1 TAB(S) SUBLINGUAL ONE TAB SL PRN CHEST PAIN EVERY 5 MIN MDD = 3 PRN TAKING METOPROLOL TARTRATE 50 MG TAB 1 TAB(S) ORAL TWICE DAILY TAKING ZOFRAN 8 MG TABLET 1 TAB(S) ORALLY THREE TIMES A DAY NEEDED, NOTES: NOT TAKING TAKING METHOTREXATE 2.5 MG TABLET 7 TABLETS ORALLY ONCE A WEEK, NOTES: STATES NOT TAKING TAKING DEXLANSOPRAZOLE 60 MG CAPSULE DELAYED RELEASE 1 CAPSULE ORALLY ONCE A DAY TAKING ARNUITY ELLIPTA 100 MCG/ACT AEROSOL POWDER BREATH ACTIVATED 1 PUFF INHALATION ONCE A DAY TAKING ANORO ELLIPTA 62.5-25 MCG/INH AEROSOL POWDER BREATH ACTIVATED 1 PUFF INHALATION ONCE A DAY TAKING SIMVASTATIN 40 MG TABLET 1 TABLET IN THE EVENING ORALLY ONCE A DAY TAKING VENLAFAXINE HCL 37.5 MG TABLET 1 TABLET WITH FOOD ORALLY THREE TIMES A DAY TAKING FOLIC ACID 1 MG TABLET 2 TABLETS ORALLY ONCE A DAY TAKING REMERON 15 MG TABLET 1 TABLET AT BEDTIME ORALLY ONCE A DAY TAKING BUPROPION HCL ER (SMOKING DET) 150 MG TABLET EXTENDED RELEASE 12 HOUR 1 TABLET IN THE MORNING ORALLY ONCE A DAY TAKING GABAPENTIN 800 MG TABLET 1 TABLET ORALLY THREE TIMES A DAY TAKING HYDROCODONE-ACETAMINOPHEN 5-325 MG TABLET 1 TABLET ORALLY TWICE A DAY NEEDED MDD=2 TAKING CLARITIN EYE 0.025 % SOLUTION 1 DROP INTO AFFECTED EYE OPHTHALMIC TWICE A DAY TAKING LYRICA 100 MG CAPSULE 1 CAPSULE ORALLY THREE TIMES A DAY MDD3 TAKING BELBUCA 75 MCG FILM 1 FILM TO THE GUM BUCALLY ONCE A DAY MDD1 TAKING NORCO 5-325 MG TABLET 1 TABLET NEEDED ORALLY EVERY 6 HRS TAKING ACETAMINOPHEN-CODEINE #3 300-30 MG TABLET 1 TABLET NEEDED ORALLY EVERY 6 HRS NOT-TAKING DRISDOL 50,000 UNITS TABLET DIRECTED ORALLY WEEKLY MEDICATION LIST REVIEWED AND RECONCILED WITH THE PATIENT PAST MEDICAL HISTORY HTN ASTHMA RHEUMATOID ARTHRITIS - DR FERRERA OSTEOARTHROSIS (BOTH KNEES, HIP, SPINE) NICOTINE DEPENDENCE BIPOLAR DISORDER/DEPRESSION TTE 10/19 S/O EF=55-60% , MODERATE MR, MILD AI STAGE III CERVICAL CANCER AT AGE 18 TREATED WITH CRYO NST/CARDIAC CATHETERIZATION 09/18- NEG COLONOSCOPY 01/18 ADENOMATOUS POLYP-NEXT DUE IN 2018 EGD 01/18- MODERATE HIATAL HERNIA/GERD FIBROMYALGIA IFG CHR CONSTIPATION VIT D DEF ANEMIA HYPERLIPIDEMIA OVARIAN CYST ALLERGIES IBUPROFEN: NAUSEA/VOMITING - ALLERGY ASPIRIN: NAUSEA/VOMITING - ALLERGY BLOOD THINNERS: SEVERE BRUISING - SIDE EFFECTS SURGICAL HISTORY CHOLECYSTECTOMY BILATERAL FOOT SURGERY TUBAL LIGATION LEFT ULNAR NERVE DECOMPRESSION 2010 D&C TRANSESOPHAGEAL ECHOCARDIOGRAM 03/24/13 VENTRAL HERNIA REPAIR 05/22 FAMILY HISTORY FATHER: , GA, CAD, HTN, DIAGNOSED WITH HYPERTENSION MOTHER: , CVA, HTN, DM-2, BRAIN ANEURYSM, CHOKED, HYPERTENSION, DIABETES, UNSPECIFIED CEREBRAL ARTERY OCCLUSION WITH CEREBRAL INFARCTION SIBLINGS: 1 BROTHER D/T SUICIDE, DIABETES SON(S): ASTHMA DAUGHTER(S): EPILEPSY, ASTHMA MATERNAL UNCLE: OF HEMORRHAGE SECONDARY TO BRAIN ANEURYSM AT AGE 40 4 BROTHER(S) , 3 SISTER(S) . 1 SON(S) , 7 DAUGHTER(S) . SOCIAL HISTORY GENERAL: TOBACCO USE ARE YOU A:CURRENT SMOKER ARE YOU INTERESTED IN QUITTING?READY TO QUIT COUNSELED THE PATIENT ON TOBACCO USE, CESSATION [id number]/13/2018 HOW MANY CIGARETTES A DAY DO YOU SMOKE?6-10 HOW SOON AFTER YOU WAKE UP DO YOU SMOKE YOUR FIRST CIGARETTE?AFTER 60 MIN HOW OFTEN DO YOU SMOKE CIGARETTES?SOME DAYS, BUT NOT EVERY DAY PATIENT COUNSELED ON THE DANGERS OF TOBACCO USE AND URGED TO QUIT:03/09/2018 LATEX QUESTIONNAIRE DATE ASKED : 08/24/2020 RECREATIONAL DRUG USE DRUG USE?NO CAFFEINE 1-2/DAY. JEHOVAH'S WITNESS NO SHINTO BELIEFS THAT WOULD IMPACT HEALTH CARE. LANGUAGE KITTITIAN. EDUCATION 11 TH GRADE. 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 DIET: REGULAR DIET. EXERCISE: WALKS. MARITAL STATUS: , ALTHOUGH PT'S IS AT VISITS. OTHERS AT HOME: DAUGHTER. PAIN CLINIC PFS, CLERGY, PUBLIC HEALTH REFERRALS HAS THE PATIENT BEEN EDUCATED REGARDING HIS/HER PLAN OF CARE?YES HAS THE PATIENT BEEN EDUCATED REGARDING PAIN, THE RISK FOR PAIN, THE IMPORTANCE OF EFFECTIVE PAIN MANAGEMENT, AND THE PAIN ASSESSMENT PROCESS?YES HOUSING: RENTS HOUSE. ADVANCE DIRECTIVE ADVANCE DIRECTIVE DISCUSSED WITH PATIENT:YES ROYCE SAVAGE/BULMARO CASTILLO/SUDARSHAN AQUINO HOSPITALIZATION/MAJOR DIAGNOSTIC PROCEDURE ECTOPIC AND SURGERIES ABOVE REVIEW OF SYSTEMS CONSTITUTIONAL: ANY RECENT FEVER NO . CHILLS NO . WEIGHT CHANGE OF UNKNOWN REASONS NO . GASTROENTEROLOGY: NEW UNEXPLAINABLE CHANGES IN BOWEL CONTROL NO . CONSTIPATION NO . GENITOURINARY: ANY NEW CHANGE IN BLADDER CONTROL? NO . NEUROLOGY: NEW ONSET DIZZINESS OR NEUROLOGICAL CHANGES NOT MENTIONED NO . NEW NUMBNESS OR PAIN PATTERNS NOT MENTIONED AND PERTINENT TO TODAY'S VISIT NO . CARDIOLOGY: NEW CHEST PRESSURE NO . NEW CHEST PAIN NO . RESPIRATORY: UNEXPLAINABLE COUGH NO . NEW SHORTNESS OF BREATH NO . VITAL SIGNS WT 168.8 LBS, HT 62.25 IN, BMI 30.62 INDEX, BP 137/63 MM HG, HR 81 /MIN, RR 18 /MIN, TEMP 97.2 F, OXYGEN SAT % 95%, SAFE IN ENV? (Y/N) YES, NA INITIALS AW 1113, REVIEWED BY: ILDA RN. EXAMINATION GENERAL EXAMINATION: GENERALEYES ARE DROOPY . AFFECT IS FLAT AND SLOW. . PSYCHAFFECT IS FLAT. SPEECH IS SLOW . NECK:NO LYMPHADENOPATHY, SUPPLE. LUNGS:CLEAR TO AUSCULTATION BILATERALLY, NO WHEEZES, RHONCHI, RALES. HEART:NO MURMURS, REGULAR RATE AND RHYTHM. ABDOMEN:ABDOMEN IS PROTUBERANT IN SOFT BOWEL SOUNDS PRESENT .MILD TENDERNESS WITH PALPATION . LUMBAR:MILD TENDERNESS NOTED OVER PARASPINAL REGION . GAIT IS SOMEWHAT UNSTEADY WITH ASSIST OF WALKER. ASSESSMENTS NEURALGIA INVOLVING ABDOMEN - M79.2 (PRIMARY) TREATMENT NEURALGIA INVOLVING ABDOMEN NOTES: RECOMMEND CONTINUING EVALUATION AND TREATMENT FOR CHRONIC ABDOMINAL PAIN WITH PRIMARY CARE. I HAVE NO MEDICATION SUGGESTIONS. IT APPEARS THAT SHE IS OVERMEDICATED. WE DO NOT HAVE INTERVENTIONAL TREATMENT OPTIONS TO TREAT THIS TYPE OF PAIN. WOULD RECOMMEND PHYSICAL THERAPY FOR LOW BACK PAIN. RECOMMEND CONTINUED EVALUATION BY SURGEON FOR CHRONIC ABDOMINAL PAIN. OTHERS NOTES: PRE NPC VISIT PHONE CALL ATTEMPTED, MESSAGE LEFT FOR PT TO RETURN CALL. INFORMATION MERGED FROM PREVIOUS CHART, PLEASE VERIFY WITH PATIENT. 08/23/2020 11:27 N MALDONADO PALACIO. PROCEDURE CODES FA211 ESTABILISHED PATIENT [facility] F[facility] CHARGE DISPOSITION & COMMUNICATION FOLLOW UP NO FOLLOW-UP NECESSARY (REASON: CHRONIC ABDOMINAL PAIN/LOW BACK PAIN) ELECTRONICALLY SIGNED BY MARCIA WALLER ON 08/27/2020 AT 04:09 PM EST DISCLAIMER : THIS IS A VISIT SUMMARY EXTRACTED FROM THE [employer] CHART. IT IS NOT A COPY OF THE [employer] PROGRESS NOTE. ELIJAH
== END ==
LOC: M PAIN 11:00
PROVIDERS: ATTEND Nurse Practitioner Family
DX: M79.2 Neuralgia and neuritis, unspecified (principal); G89.29 Other chronic pain; J45.909 Unspecified asthma, uncomplicated; M79.7 Fibromyalgia; E55.9 Vitamin D deficiency, unspecified; F17.210 Nicotine dependence, cigarettes, uncomplicated; Z86.59 Personal history of other mental and behavioral disorders; Z88.6 Allergy status to analgesic agent; Z88.8 Allergy status to other drugs, medicaments and biological substances; Z79.51 Long term (current) use of inhaled steroids; Z79.891 Long term (current) use of opiate analgesic; Z79.899 Other long term (current) drug therapy

== ENCOUNTER → 2020-10-06 | Outpatient (CLI) | payer OTHER ==
[2020-10-06 14:22] LABS: APPEARANCE, URINE CLEAR (CLEAR); BACTERIA, URINE AUTO 1+ (NEGATIVE); BILIRUBIN, URINE AUTO NEGATIVE (NEGATIVE); BLOOD, URINE BLOOD NEGATIVE (NEGATIVE); COLOR, URINE YELLOW (YELLOW); GLUCOSE, URINE (UA) AUTO NEGATIVE (NEGATIVE); KETONE, URINE AUTO NEGATIVE (NEGATIVE); LEUKOCYTE ESTERASE, URINE AUTO NEGATIVE (NEGATIVE); MUCUS, URINE SMALL (NEGATIVE); NITRITE, URINE AUTO NEGATIVE (NEGATIVE); PROTEIN, URINE AUTO NEGATIVE (NEGATIVE); RBC, URINE AUTO 1 /HPF (0-3); SQUAMOUS EPITHELIAL CELL UR AU 1 /HPF (0-6); UROBILINOGEN, URINE AUTO 0.2 mg/dL (0.0-2.0); WBC, URINE AUTO 1 /HPF (0-3)
[2020-10-06 14:24] LABS: HEMATOCRIT 42.7 % (36.0-47.0); HEMOGLOBIN 13.8 g/dl (12.0-15.5); MEAN CORPUSCULAR HEMOGLOBIN 31.9 pg (27.0-33.0); MEAN CORPUSCULAR HGB CONC 32.3 g/dl (32.0-36.5); MEAN CORPUSCULAR VOLUME 98.6 fl (80.0-96.0); PLATELET COUNT, AUTOMATED 264 10^3/uL (150-450); RED BLOOD COUNT 4.33 10^6/uL (4.00-5.40); WHITE BLOOD COUNT 8.1 10^3/uL (4.0-10.0)
== END ==
LOC: M LAB 13:29
PROVIDERS: ATTEND Obstetrics & Gynecology Obstetrics
DX: Z01.812 Encounter for preprocedural laboratory examination (principal); Z20.822 Contact with and (suspected) exposure to COVID-19

== ENCOUNTER → 2020-11-28 | Outpatient (CLI) | payer OTHER ==
--- NOTE | 2020-11-28 18:33 | REPVR ---
PROCEDURE INFORMATION: Exam: CT Head Without Contrast Exam date and time: 11/28/2020 5:57 PM Age: 60 years old Clinical indication: Pain; Headache; Additional info: Villafuerte's TECHNIQUE: Imaging protocol: Computed tomography of the head without contrast. Radiation optimization: All CT scans at this facility use at least one of these dose optimization techniques: automated exposure control; mA and/or kV adjustment per patient size (includes targeted exams where dose is matched to clinical indication); or iterative reconstruction. COMPARISON: CT Head without contrast 09/09/2018 3:17 PM FINDINGS: Brain: No hemorrhage. Unremarkable white matter for the patient's age. No mass effect. No evolving territorial infarct. Cerebral ventricles: No ventriculomegaly. Bones/joints: Unremarkable. No acute fracture. Paranasal sinuses: Visualized sinuses are unremarkable. No fluid levels. Mastoid air cells: Moderate left and small right mastoid effusions, new since the prior study. Could reflect eustachian tube dysfunction or mastoiditis. Soft tissues: Unremarkable. IMPRESSION: 1. No acute intracranial abnormality seen. 2. Nonspecific bilateral mastoid effusions. Electronically signed by: Nancy Childress On 11/28/2020 18:34:03 PM
== END ==
LOC: M RAD 17:39
PROVIDERS: ATTEND Family Medicine
DX: R51.9 Headache, unspecified (principal); Z48.89 Encounter for other specified surgical aftercare

== ENCOUNTER → 2020-11-28 | Outpatient (CLI) | payer OTHER ==
--- NOTE | 2020-11-28 18:34 | REP ---
INDICATION: ENCOUNTER FOR OTHER SPECIFIED SURGICAL AFTERCARE COMPARISON: Comparison abdominal CT study July 07, 2018 and August 01, 2020.. TECHNIQUE: Helical scanning is acquired in 4 mm axial images were reformatted. Coronal and sagittal MPR images were generated and reviewed. FINDINGS: Preliminary digital automotive brake adjuster radiograph demonstrates an unremarkable bowel gas pattern. There is linear platelike atelectasis in the right lung base and there are clips in right upper quadrant of the abdomen on automotive brake adjuster view. There is a central venous line visible in place. Axial CT images confirm the presence of linear platelike atelectasis in the right lower lobe. There is minimal linear fibrosis in the left lung base anteriorly. The liver and the spleen are normal in size homogeneous in texture. No focal liver lesion is seen. Normal adrenal glands are observed. No abnormality is noted in the pancreas. The gallbladder is surgically absent with clips in the gallbladder fossa. Changes in the anterior abdominal wall indicate recent ventral hernia repair. There is a small hematoma seroma along the superficial aspect of the anterior abdominal wall below the level of the umbilicus. This collection measures 4.8 x 2.4 by 5.9 cm. There is some surrounding edema. The previously noted ventral hernia appears to have been closed. No other fluid collection is seen. No intraperitoneal fluid collection is observed. There is some streakiness in the omental fat underlying the hernia repair. Previously noted adnexal cystic change has resolved. No pelvic or ovarian mass or cyst is seen. Urinary bladder is unremarkable. There is no evidence of free intraperitoneal air. IMPRESSION: Interval ventral hernia repair. Hematoma seroma cavity at the repair site at the subcutaneous abdominal wall interface. Some underlying streakiness in the omental and peritoneal fat. No abdominal wall defect seen. There is platelike atelectasis in the right lung base. A central venous catheter is noted. Patient is post cholecystectomy. <Electronically signed by Ciaran Bryan > 11/28/20 [id number]
== END ==
LOC: M RAD 17:44
PROVIDERS: ATTEND Obstetrics & Gynecology Obstetrics
DX: R51.9 Headache, unspecified (principal); Z48.89 Encounter for other specified surgical aftercare

== ENCOUNTER 2020-12-04 17:24 | Emergency (ER) | payer OTHER ==
[~2020-12-04] VITALS: Ht 157.5 cm; Wt 69.5 kg
[2020-12-04] MEDS ORDERED: diphenhydrAMINE 50MG/ML VIAL (J1200) IV STA (19:39)
[2020-12-04] MEDS ORDERED: METOCLOPRAMIDE INJ 10MG/2ML VIAL (J2765 PER 1) IV ONE (19:40)
--- NOTE | 2020-12-04 19:53 | REP ---
INDICATION: cp. COMPARISON: Comparison chest x-ray May 12, 2019.. TECHNIQUE: Portable AP sitting chest radiograph. FINDINGS: A right-sided tunnel catheter is seen terminating in the expected location of superior vena cava. Heart is not enlarged. Lungs are well inflated and free of infiltrate. There is a mild linear density at the right base consistent with platelike atelectasis. No infiltrate is seen. Pulmonary vasculature is not increased. No significant bony abnormality. IMPRESSION: Linear platelike atelectasis right base. Tunnel catheter noted on the right. Otherwise no acute disease. <Electronically signed by Ciaran Bryan > 12/04/20 1950
[2020-12-04 19:57] LABS: HEMATOCRIT 33.5 % (36.0-47.0); MEAN CORPUSCULAR HEMOGLOBIN 30.9 pg (27.0-33.0); MEAN CORPUSCULAR HGB CONC 32.8 g/dl (32.0-36.5); MEAN CORPUSCULAR VOLUME 94.1 fl (80.0-96.0); PLATELET COUNT, AUTOMATED 237 10^3/uL (150-450); RED BLOOD COUNT 3.56 10^6/uL (4.00-5.40); WHITE BLOOD COUNT 8.7 10^3/uL (4.0-10.0)
[2020-12-04 20:30] VITALS: BP 108/59
== END 2020-12-04 22:19 | disposition home or self-care (01) ==
LOC: M ED 17:24
DX: R51.9 Headache, unspecified (principal); N18.6 End stage renal disease; Z99.2 Dependence on renal dialysis; R07.9 Chest pain, unspecified; J98.11 Atelectasis; E11.9 Type 2 diabetes mellitus without complications; I10 Essential (primary) hypertension; E78.5 Hyperlipidemia, unspecified; Z88.6 Allergy status to analgesic agent; Z79.899 Other long term (current) drug therapy
CPT/HCPCS: 71045; 80047; 85027; 96374; 96375; 99284; J1200; J2765

== ENCOUNTER → 2020-12-11 | Outpatient (REF) | payer OTHER ==
[2020-12-11 18:55] LABS: CREATININE CLEARANCE, URINE 18.8 ML/MIN (75-115); CREATININE, SERUM 2.8 MG/DL (0.6-1.0); CREATININE, URINE 44.9 MG/DL
== END ==
LOC: M LAB REF 17:40
PROVIDERS: ATTEND Internal Medicine Nephrology
DX: N17.9 Acute kidney failure, unspecified (principal)

== ENCOUNTER → 2021-01-01 | Outpatient (REF) | payer OTHER ==
[2021-01-01 18:40] LABS: CREATININE, SERUM 2.3 MG/DL (0.6-1.0)
[2021-01-01 18:46] LABS: CREATININE CLEARANCE, URINE 30.3 ML/MIN (75-115); CREATININE, URINE 74.3 MG/DL
[2021-01-02 14:37] LABS: ALBUMIN 3.8 GM/DL (3.2-5.2); CALCIUM LEVEL 9.5 MG/DL (8.8-10.2); CREATININE FOR GFR 2.35 MG/DL (0.55-1.30); GLOMERULAR FILTRATION RATE 27.1 (>45); PHOSPHORUS LEVEL 4.2 MG/DL (2.5-4.9); POTASSIUM SERUM 3.6 MEQ/L (3.5-5.1)
== END ==
LOC: M LAB REF 16:50
PROVIDERS: ATTEND Internal Medicine Nephrology
DX: N17.9 Acute kidney failure, unspecified (principal); Z99.2 Dependence on renal dialysis

== ENCOUNTER → 2021-01-09 | Outpatient (POV) | payer OTHER ==
[~2021-01-09] VITALS: Ht 157.5 cm; Wt 61.4 kg
[2021-01-09 13:59] VITALS: BP 143/78
--- NOTE | 2021-01-10 11:22 | IRCOV ---
[facility] IR Consult Office Visit IR Consult Office Visit DATE: January 09, 2021 REASON FOR CONSULTATION/CHIEF COMPLAINT: PermCath removal. Placed at outside hospital. HISTORY OF PRESENT ILLNESS: 60-year-old female with a right chest PermCath. Patient states she does not know where it was placed or when it was placed or how long it's been there. She says it hurts and she wants it removed. She states that her last dialysis session was a couple of weeks ago and there is no further dialysis planned. She denies blood thinners or bleeding disorder. Per nephrology notes, she was treated at [facility] with an extensive complicated postoperative history at which time she went into acute renal failure. I presume this catheter was placed at [facility] in October. ALLERGIES: Please see below. HOME MEDICATIONS: Please see below. PAST MEDICAL HISTORY: Hypertension Renal failure PAST SURGICAL HISTORY: Laparoscopic ovarian cystectomy Lysis of adhesions Incarcerated supraumbilical hernia Incarcerated incisional hernia Hernia repair FAMILY HISTORY: Noncontributory. SOCIAL HISTORY: Smoker. PHYSICAL EXAMINATION: VITAL SIGNS: Please see below. GENERAL APPEARANCE: Appears well. Comfortable at rest. Right chest PermCath in place. LABORATORY DATA: 12/04/2020 hemoglobin 11.0 hematocrit 33.5 WBC 8.7 platelets 237 01/01/2021 sodium 143 potassium 3.6 BUN 18 creatinine 2.35 GFR 27.1 Imaging: I personally reviewed the last chest radiograph performed at this facility 12/04/2020. There is a right-sided PermCath in place. ASSESSMENT/PLAN: 60-year-old female with right-sided PermCath placed presumably in October this year at [facility]. Patient states she'll require sedation for PermCath removal. We discussed the risks and benefits of the procedure. Patient would like to proceed. We'll schedule the patient for right PermCath removal under fluoroscopy guidance and moderate sedation. I spent 30 minutes reviewing patient's records, imaging and in consultation with the patient. Thank you for this referral. Cc Dr. Virgilio Pacheco Allergies Coded Allergies: aspirin (Verified Allergy, Unknown, 05/12/19) ibuprofen (Verified Allergy, Unknown, 05/12/19) MS - Uncoded Nonscreenable Allergen (Verified Adverse Reaction, Mild, BLOOD THINNERS- BRUISES UP, 02/10/18) Home Medications Scheduled Amlodipine Besylate (Amlodipine Besylate), 5 MG PO DAILY, (Reported) Dexlansoprazole (Dexilant), 60 MG PO DAILY, (Reported) Ergocalciferol (Vitamin D2) (Drisdol), 50,000 UNIT PO QWEEK, (Reported) Folic Acid (Folic Acid), 2 MG PO DAILY, (Reported) Gabapentin (Gabapentin), 800 MG PO TID, (Reported) Gabapentin (Gabapentin), 1 TAB PO TID Ipratropium Montgomery (Ipratropium Montgomery), 2 PUFFS NA BID, (Reported) Methotrexate Sodium (Methotrexate), 7 TAB PO Q7D Metoprolol Tartrate (Metoprolol Tartrate), 50 MG PO BID, (Reported) Quetiapine Fumarate (Seroquel), 50 MG PO QHS, (Reported) Simvastatin (Simvastatin), 40 MG PO DAILY, (Reported) Scheduled PRN Hydrocodone/Acetaminophen (Hydrocodone-Acetamin 5-325 mg), 1 TAB PO Q8HP PRN for SEVERE PAIN (PS 8-10) Methocarbamol (Robaxin), 2 TAB PO Q6H PRN for PAIN Miscellaneous Medications Estrogen,Con/M-Progest Acet (Prempro 0.625-2.5 mg Tablet), (Reported) Fluticasone Furoate (Arnuity Ellipta), (Reported) VS, I&O, 24H, Fishbone Vital Signs/I&O Vital Signs Date Time Temp Pulse Resp B/P (MAP) Pulse Ox O2 Delivery O2 Flow Rate FiO2 01/09/21 13:59 97.7 80 20 143/78 (99) 95 Room Air RUFINO GALINDO MD January 10, 2021 11:22
== END ==
LOC: M IRPOV 13:44
PROVIDERS: ATTEND Radiology Diagnostic Radiology
DX: Z45.2 Encounter for adjustment and management of vascular access device (principal); I12.0 Hypertensive chronic kidney disease with stage 5 chronic kidney disease or end stage renal disease; N18.6 End stage renal disease; Z88.6 Allergy status to analgesic agent

== ENCOUNTER → 2021-01-17 | Outpatient (CLI) | payer OTHER ==
[~2021-01-17] MED LIST changes: +LIDOCAINE 1% MDV 20ML VIAL As Ordered ONE; +MIDAZOLAM INJ 2MG/2ML VIAL (J2250 PER 1MG) As Ordered ONE; +diphenhydrAMINE 50MG/ML VIAL (J1200) As Ordered ONE; +fentaNYL 100 MCG/2 ML INJECTION (J3010) As Ordered ONE
--- NOTE | 2021-01-17 12:34 | IRHP ---
[facility] IR Pre-Procedure H & P General Date of Service: January 17, 2021 Procedure: Same Day Surgery Interval History and Physical I have seen the patient and reviewed last H & P performed within 30 days. There is no significant interval change. History of Present Illness Chief Complaint The patient is a 60-year-old female admitted with a reason for visit of Renal Failure, No More Treatments. PRE-PROCEDURE DIAGNOSIS: Recovered RF HEART: normal rate. LUNGS: normal breathing at rest. ASA Classification ASA Classification: III-Severe systemic dis. Mallampati Score: II NPO: Yes Problems with prior sedation: No Obstructive Sleep Apnea: No Plan moderate sedation Allergies Coded Allergies: aspirin (Verified Allergy, Unknown, 05/12/19) ibuprofen (Verified Allergy, Unknown, 05/12/19) MS - Uncoded Nonscreenable Allergen (Verified Adverse Reaction, Mild, BLOOD THINNERS- BRUISES UP, 02/10/18) Home Medications Scheduled Amlodipine Besylate (Amlodipine Besylate), 5 MG PO DAILY, (Reported) Dexlansoprazole (Dexilant), 60 MG PO DAILY, (Reported) Ergocalciferol (Vitamin D2) (Drisdol), 50,000 UNIT PO QWEEK, (Reported) Gabapentin (Gabapentin), 300 MG PO ONCE, (Reported) Ipratropium [place]imar (Ipratropium [place]), 2 PUFFS NA BID, (Reported) Metoprolol Tartrate (Metoprolol Tartrate), 50 MG PO BID, (Reported) Miscellaneous Medications Fluticasone Furoate (Arnuity Ellipta), (Reported) Discontinued Medications Estrogen,Con/M-Progest Acet (Prempro 0.625-2.5 mg Tablet), (Reported) Discontinued Reason: Pt states not taking Folic Acid (Folic Acid), 2 MG PO DAILY, (Reported) Discontinued Reason: Pt states not taking Gabapentin (Gabapentin), 1 TAB PO TID Discontinued Reason: Pt states not taking Hydrocodone/Acetaminophen (Hydrocodone-Acetamin 5-325 mg), 1 TAB PO Q8HP PRN for SEVERE PAIN (PS 8-10) Discontinued Reason: Pt states not taking Methocarbamol (Robaxin), 2 TAB PO Q6H PRN for PAIN Discontinued Reason: Pt states not taking Methotrexate Sodium (Methotrexate), 7 TAB PO Q7D Discontinued Reason: Pt states not taking Quetiapine Fumarate (Seroquel), 50 MG PO QHS, (Reported) Discontinued Reason: Pt states not taking Simvastatin (Simvastatin), 40 MG PO DAILY, (Reported) Discontinued Reason: Pt states not taking VS, I&O, 24H, Fishbone Vital Signs/I&O Vital Signs Date Time Temp Pulse Resp B/P (MAP) Pulse Ox O2 Delivery O2 Flow Rate FiO2 01/17/21 12:00 98.0 69 20 98 Room Air RUFINO GALINDO MD January 17, 2021 12:34
[2021-01-17 15:00] VITALS: BP 134/75
--- NOTE | 2021-01-22 08:31 | IRPON ---
IR Postoperative Note Date Of Procedure: January 17, 2021 Time Of Procedure: 16:00 IR Postoperative Note IR Tunneled dialysis Catheter Removal. IR Moderate sedation. Ultrasound right neck. Clinical Information:Renal failure. Recovered. Permanent dialysis catheter was placed at outside hospital. No further dialysis planned. Request removal. Physician: Dr. Childress. Procedure: The patient was advised of the benefits, risks, and alternatives of the procedure and informed consent was obtained. A time out was performed with verification of the patient's name, MRN, site of procedure, and type of procedure to be performed. The patient was positioned in the supine position. Ultrasound right neck demonstrates the catheter enters the IJ/subclavian vein. A mortgage analyst radiograph demonstrates right-sided tunneled PermCath, tip positioned in the right atrium. Moderate sedation was performed by the physician including the presence of an independent trained RN who assisted in monitoring the patient's level of consciousness and physiological status. Following the administration of fentanyl and Versed, the physician spent 30 minutes of continuous [id number] time with the patient. The indwelling Permcath was prepped and draped in the usual sterile fashion.Lidocaine was injected along the catheter tract. Using sterile curved hemostats, the cuff of the catheter was dissected free and the catheter was then easily removed. Direct pressure was applied to the jugular puncture site for 10 minutes and a sterile dressing was applied to the site. EBL: < 5 mL. Complications: None. Conclusion: Successful removal of a catheter without immediate complications or bleeding. Thank you for this referral. Cc RUFINO Ferreira MD January 22, 2021 08:31
== END ==
LOC: M IRPRO 11:34
PROVIDERS: ATTEND Radiology Diagnostic Radiology
DX: Z45.2 Encounter for adjustment and management of vascular access device (principal); N17.9 Acute kidney failure, unspecified; I10 Essential (primary) hypertension; R10.30 Lower abdominal pain, unspecified; N25.81 Secondary hyperparathyroidism of renal origin; Z88.6 Allergy status to analgesic agent; Z79.899 Other long term (current) drug therapy
CPT/HCPCS: 36589; 99152; 99153; J1200; J1644; J2250; J3010

== ENCOUNTER → 2021-01-24 | Outpatient (CLI) | payer OTHER ==
[~2021-01-24] MED LIST changes: -LIDOCAINE 1% MDV 20ML VIAL As Ordered ONE; -MIDAZOLAM INJ 2MG/2ML VIAL (J2250 PER 1MG) As Ordered ONE; -diphenhydrAMINE 50MG/ML VIAL (J1200) As Ordered ONE; -fentaNYL 100 MCG/2 ML INJECTION (J3010) As Ordered ONE
--- NOTE | 2021-01-25 14:51 | SLEEPCENT ---
DATE: 01/24/2021 ORDERED BY: Dr. Blue Song Nocturnal polysomnography was performed for re-evaluation of sleep physiology in this patient with a history of excessive somnolence and a prior history of obstructive sleep apnea syndrome. There was 9 hours and 4 minutes of data reviewed. There was 283 minutes of sleep identified. Sleep latency was prolonged at 97.5 minutes. REM latency was prolonged at 315.5 minutes. Sleep architecture showed poor progression and fragmentation. There was one REM cycle noted. Overall sleep efficiency 52.6%. The patient's electrocardiogram shows a sinus rhythm with an average heart rate of 92 beats per minute. Rate ranged 80-110. EEG shows normal waveforms for wake and sleep. There were 44 respiratory events identified of 10 seconds in duration or greater for an apnea-hypopnea index of 9.3. The events were primarily obstructive. Five central and one mixed apnea were seen. Events were not exclusive to sleep stage nor to body posture. Arousals from respiratory events occurred 2.1 times per hour, and oxygen desaturations were seen into the 80s. There was some limb activity appreciated in the EMG leads. Two trains of 30 events. Limb movement arousal index 7.4. IMPRESSION: Obstructive sleep apnea syndrome (G47.33). Apnea-hypopnea index 9.3. RECOMMENDATION: The patient should be encouraged to return to the sleep disorder center for pressure therapy. In the interim, alcohol and sedative avoidance should be practiced and caution exercised during the operation of motor vehicles.
== END ==
LOC: M SLEEP 20:00
PROVIDERS: ATTEND Internal Medicine Pulmonary Disease
DX: G47.33 Obstructive sleep apnea (adult) (pediatric) (principal)

== ENCOUNTER → 2021-01-31 | Outpatient (CLI) | payer OTHER ==
--- NOTE | 2021-01-31 15:17 | REP ---
INDICATION: NICOTINE DEPENDENCE COMPARISON: 01/05/2019, 11/19/2019 TECHNIQUE: Axial noncontrast images from the thoracic inlet to the upper abdomen using low-dose lung screening technique (LDCT). FINDINGS: Current examination demonstrates chronic emphysematous changes. New scattered multifocal peripheral nonsolid ground-glass densities are identified and increased from prior examination. Findings are nonspecific but and active pulmonary process cannot be excluded. Clinical and physical correlation is required. No pleural effusion. No pneumothorax. Tracheobronchial tree is patent. IMPRESSION: Lung-RADS category 2S. Although management recommendations would include annual low-dose CT follow-up. Pulmonology consultation and possible short-term contrast-enhanced chest CT should be considered for further investigation. <Electronically signed by Dusty Tariq > 01/31/21 [id number]
== END ==
LOC: M RAD 14:41
PROVIDERS: ATTEND Internal Medicine Pulmonary Disease
DX: F17.218 Nicotine dependence, cigarettes, with other nicotine-induced disorders (principal)

== ENCOUNTER → 2021-02-16 | Outpatient (CLI) | payer OTHER ==
--- NOTE | 2021-02-19 03:14 | REP ---
INDICATION: R10.84-GENERALIZED ABDOMINAL PAIN COMPARISON: 11/28/2020 TECHNIQUE: Axial noncontrast images from the lung bases to the pubic symphysis with coronal and sagittal reformations. This CT examination was performed using the following dose reduction techniques: Automated exposure control, adjustment of mA and/or kv according to the patient's size, and use of iterative reconstruction technique. FINDINGS: Lung bases demonstrate stable chronic interstitial changes and mild emphysematous disease. Visualized heart and pericardium normal. Liver, spleen, pancreas, bilateral adrenal glands and kidneys are normal. Evidence for prior cholecystectomy. Chronic postsurgical changes in the anterior abdominal subcutaneous tissue noted and the previously identified hematoma/seroma and acute inflammatory stranding has resolved. The enteric system is without obstruction or acute inflammatory process. Normal terminal ileum and appendix identified in the right lower quadrant. Pelvis demonstrates normal bladder and age-appropriate uterus/adnexa. A 2 cm cyst in the right ovary is nonspecific. No ascites. No free air. No adenopathy. No focal inflammatory stranding. Abdominal aorta without aneurysm. Musculoskeletal structures demonstrate degenerative changes including chronic grade 1 spondylolysis/spondylolisthesis at the L4-5 level. IMPRESSION: No acute abdominopelvic pathology appreciated. Nonacute findings as noted above. <Electronically signed by Dusty Tariq > 02/19/21 [id number]
== END ==
LOC: M RAD 16:05
PROVIDERS: ATTEND Surgery
DX: R10.84 Generalized abdominal pain (principal)

== ENCOUNTER → 2021-02-23 | Outpatient (CLI) | payer OTHER ==
[~2021-02-23] MED LIST changes: -DOXY100C37 PO; +DOXY1CAP62 PO; +E-Z-GAS II EFFERVESCENT PACKET (SODIUM BICARB./CITRIC ACID/SIMETHICONE) As Ordered ONE; +E-Z-HD 98% w/w 340GM SUSP BTL As Ordered ONE; +E-Z-PAQUE 96% w/w SUSP 176GM BTL As Ordered ONE
--- NOTE | 2021-02-23 17:16 | REP ---
INDICATION: GENERALIZED ABDOMINAL PAIN. COMPARISON: None TECHNIQUE: This procedure was performed by Tia Holt [facility], under the direct supervision of Dr. Lim. Images were reviewed with Dr. Lim prior to dictation. Liquid barium and gas producing crystals were given in the erect position, as well as liquid barium in the prone oblique position in order to perform a double contrast upper GI examination. Additionally liquid barium was given at the end of the examination in order to perform a small-bowel follow-through. 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 The intestinal gas pattern is unremarkable. The oral and pharyngeal stages of deglutition were unremarkable. Esophageal transport is prompt and efficient and there is no evidence of esophagitis, stricture, or mucosal ring. There is evidence of a small hiatal hernia. There was no gastroesophageal reflux noted . The stomach cuellar are normally outlined. The patient ate a full breakfast prior to the examination, the stomach is full retained material and cannot be evaluated for gastritis, polyps, or ulcers.. The duodenal cuellar are normally outlined. The mucosal folds are smooth and regular. There is no duodenitis, peptic ulcer disease or neoplasm. The visualized portion of the proximal small bowel appears normal in course and caliber. The barium column was followed through the small bowel to the level of the terminal ileum. Small bowel transit time is approximately 130 minutes. During fluoroscopy gentle palpation shows all loops are freely movable and pliable. There is no fixed angulated loops. The small bowel mucosal pattern is normal in course and caliber. There is no transition to suggest a partial small bowel obstruction. Spot filming of the terminal ileum shows it to be unremarkable. IMPRESSION: 1. Small hiatal hernia. 2. Limited evaluation of the stomach due to retained food stuffs. 0.8 minutes of fluoroscopy time was utilized for this procedure. Some fluoroscopic images are performed with last image hold technology. These images require no additional radiation. <Electronically signed by Tia Holt > 02/23/21 1554 <Electronically signed by Adolfo Lim > 02/23/21 [id number]
== END ==
LOC: M RAD 09:57
PROVIDERS: ATTEND Surgery
DX: K44.9 Diaphragmatic hernia without obstruction or gangrene (principal)

== ENCOUNTER → 2021-03-31 | Outpatient (CLI) | payer OTHER ==
[~2021-03-31] MED LIST changes: -E-Z-GAS II EFFERVESCENT PACKET (SODIUM BICARB./CITRIC ACID/SIMETHICONE) As Ordered ONE; -E-Z-HD 98% w/w 340GM SUSP BTL As Ordered ONE; -E-Z-PAQUE 96% w/w SUSP 176GM BTL As Ordered ONE
--- NOTE | 2021-04-04 15:56 | SLEEPCENT ---
DATE: 03/31/2021 ORDERED BY: SAUMYA RODRIGUEZ DO Nocturnal polysomnography was performed for the titration of pressure therapy in this patient with obstructive sleep apnea syndrome, apnea-hypopnea index of 9.3 on 01/24/2021. For testing a ResMed P30 nasal pillows device of small size was used with a chin strap, 4 cm of water pressure were applied to the circuit, and the lights were extinguished. Seven hours and 37 minutes of data were reviewed. There were 392.5 minutes of sleep identified. Sleep latency was mildly prolonged at 19.5 minutes. REM latency was normal at 81 minutes. Sleep architecture was good with three REM cycles. Overall sleep efficiency was 87%. The electrocardiogram showed a sinus rhythm with an average heart rate of 78 beats per minute. EEG showed normal waveforms for wake and sleep. There was persistence of respiratory events prompting an increase in CPAP pressure for a time. The patient was tried on a bilevel device. In review, the optimal sleep was seen on a CPAP pressure of +5. IMPRESSION: Obstructive sleep apnea syndrome (G47.33). RECOMMENDATION: Nightly use of pressure therapy 5 cm of water. cc: NENA OGDEN, MARCIA Shen MD
== END ==
LOC: M SLEEP 20:00
PROVIDERS: ATTEND Internal Medicine Pulmonary Disease
DX: G47.33 Obstructive sleep apnea (adult) (pediatric) (principal)

== ENCOUNTER → 2021-04-06 | Outpatient (CLI) | payer OTHER ==
--- NOTE | 2021-04-10 00:08 | ECWPNPC ---
PATIENT NAME: CHARLES SAVAGE : 1960 GENDER: FEMALE VISIT DATE: 04/06/2021 DISCHARGE DATE: 04/06/21 1431 VISIT LOCKED DATE TIME: PHYSICIAN: DANILO BAEZA PHYSICIAN PAGER NO: ACTIVE RESOURCE: DANILO BAEZA REASON FOR APPOINTMENT 1. CHRONIC ABDOMINAL PAIN/LOW BACK PAIN HISTORY OF PRESENT ILLNESS GENERAL: 60-YEAR-OLD FEMALE KNOWN TO THE PAIN CLINIC WITH LAST VISIT AUGUST 2020. PATIENT WAS HOSPITALIZED FOR 3 MONTHS FROM OCTOBER 2020 UNTI DECEMBER 2020. PATIENT STATES SHE HAD SEPSIS AND WENT INTO A COMA. ALSO HAD ACUTE KIDNEY INJURY REQUIRING DIALYSIS. CONTINUES TO HAVE SEVERE ABDOMINAL PAIN AND LOW BACK PAIN. STATES MEDICATION IS LIMITED DUE TO KIDNEY PROBLEM. STATES SHE WAS TOLD BY NEPHROLOGY TO AVOID [id number] MEDICATIONS. REPORTS SEVERE HYPERSENSITIVITY TO LIGHT TOUCH OVER HER ABDOMEN. DISCUSSED MEDICATION TREATMENT PLAN. -. FALL RISK SCREENING: SCREENING : NO FALLS REPORTED IN THE LAST YEAR. PAIN SCREENING: PATIENT HAS A COMPLAINT OF ACUTE OR CHRONIC PAIN :YES LOCATION OF PAIN:ABDOMEN, LOW BACK INTENSITY OF PAIN (SCALE OF 1 TO 10):10 WHAT DOES YOUR PAIN FEEL LIKE:BURNING, OTHER PRESSURE DURATION:CONTINOUS, CONSTANT, ALL DAY PAIN IS INCREASED BY:ACTIVITIES PAIN IS DECREASED BY:USE OF PAIN MEDICATIONS HYDROCODONE 5MG NURSING NOTE: -. PAIN CENTER INTAKE QUESTIONS: DO YOU HAVE A HISTORY OF MRSA? :NO DO YOU TAKE A BLOOD THINNERS? :NO DO YOU HAVE ANY BLEEDING DISORDERS? :NO ANY NEW NUMBNESS OR WEAKNESS IN YOUR LEGS OR ARMS? :NO ANY PACEMAKER,DEFIBRILLATOR, OR DORSAL COLUMN STIMULATOR? :NO DO YOU HAVE ANY RASHES OR OPEN SORES? :NO ARE YOU ALLERGIC TO IV DYE? :NO ARE YOU DIABETIC? :NO ANY NEW PROBLEMS WITH YOUR MEDICATIONS? :YES "THEY DON'T WORK" HAVE YOU RECEIVED A VACCINE IN THE PAST 30 DAYS? :NO DO YOU PLAN TO RECEIVE A VACCINE IN THE NEXT 21 DAYS? :NO DO YOU NEED ANY PRESCRIPTION? :NO DO YOU TAKE ANY IMMUNOSUPPRESSIVE MEDICATIONS? :NO CURRENT MEDICATIONS TAKING AMLODIPINE BESYLATE 10 MG TABLET 1 TABLET ORALLY ONCE A DAY TAKING POTASSIUM CHLORIDE ER 20 MEQ TABLET EXTENDED RELEASE 1 TABLET WITH FOOD ORALLY ONCE A DAY TAKING LISINOPRIL 10 MG TABLET 1 TABLET ORALLY ONCE A DAY TAKING VITAMIN D (ERGOCALCIFEROL) 1.25 MG (63319 UT) CAPSULE 1 CAPSULE ORALLY TAKING QUETIAPINE FUMARATE 100 MG TABLET 1 TABLET AT BEDTIME ORALLY ONCE A DAY TAKING DULOXETINE HCL 60 MG CAPSULE DELAYED RELEASE PARTICLES 1 CAPSULE ORALLY ONCE A DAY, NOTES: TOTAL OF 90MG DAILY TAKING DULOXETINE HCL 30 MG CAPSULE DELAYED RELEASE PARTICLES 1 CAPSULE ORALLY ONCE A DAY TAKING FLEXERIL 10 MG TABLET 1 CAP(S) ORALLY THREE TIMES A DAY NEEDED TAKING AMLODIPINE 2.5MG TABLET 1 TAB(S) ORAL DAILY TAKING TIZANIDINE HCL 2 MG TABLET 1 TABLET NEEDED ORALLY FOR SPASMS AND PAIN BEFORE BEDTIME MAY REPEAT 4 HRS MDD 2 TAKING ZYRTEC ALLERGY 10 MG TABLET 1 TABLET NEEDED ORALLY ONCE A DAY TAKING NEBULIZER/TUBING/MOUTHPIECE - - DIRECTED - DX 285.9, NEW TUBING AND MOUTHPIECE ONLY TAKING ALBUTEROL SULFATE (2.5 MG/3ML) 0.083% NEBULIZATION SOLUTION 3 ML INHALATION EVERY 6 HOURS NEEDED FOR SOB TAKING NITROSTAT 0.4MG TABLET SUBLINGUAL 1 TAB(S) SUBLINGUAL ONE TAB SL PRN CHEST PAIN EVERY 5 MIN MDD = 3 PRN TAKING METOPROLOL TARTRATE 50 MG TAB 1 TAB(S) ORAL TWICE DAILY TAKING ZOFRAN 8 MG TABLET 1 TAB(S) ORALLY THREE TIMES A DAY NEEDED, NOTES: NOT TAKING TAKING METHOTREXATE 2.5 MG TABLET 7 TABLETS ORALLY ONCE A WEEK, NOTES: STATES NOT TAKING TAKING DEXLANSOPRAZOLE 60 MG CAPSULE DELAYED RELEASE 1 CAPSULE ORALLY ONCE A DAY TAKING ARNUITY ELLIPTA 100 MCG/ACT AEROSOL POWDER BREATH ACTIVATED 1 PUFF INHALATION ONCE A DAY TAKING ANORO ELLIPTA 62.5-25 MCG/INH AEROSOL POWDER BREATH ACTIVATED 1 PUFF INHALATION ONCE A DAY TAKING SIMVASTATIN 40 MG TABLET 1 TABLET IN THE EVENING ORALLY ONCE A DAY TAKING VENLAFAXINE HCL 37.5 MG TABLET 1 TABLET WITH FOOD ORALLY THREE TIMES A DAY TAKING FOLIC ACID 1 MG TABLET 2 TABLETS ORALLY ONCE A DAY TAKING REMERON 15 MG TABLET 1 TABLET AT BEDTIME ORALLY ONCE A DAY TAKING BUPROPION HCL ER (SMOKING DET) 150 MG TABLET EXTENDED RELEASE 12 HOUR 1 TABLET IN THE MORNING ORALLY ONCE A DAY TAKING GABAPENTIN 800 MG TABLET 1 TABLET ORALLY THREE TIMES A DAY TAKING HYDROCODONE-ACETAMINOPHEN 5-325 MG TABLET 1 TABLET ORALLY TWICE A DAY NEEDED MDD=2 TAKING CLARITIN EYE 0.025 % SOLUTION 1 DROP INTO AFFECTED EYE OPHTHALMIC TWICE A DAY TAKING LYRICA 100 MG CAPSULE 1 CAPSULE ORALLY THREE TIMES A DAY MDD3 TAKING BELBUCA 75 MCG FILM 1 FILM TO THE GUM BUCALLY ONCE A DAY MDD1 TAKING ACETAMINOPHEN-CODEINE #3 300-30 MG TABLET 1 TABLET NEEDED ORALLY EVERY 6 HRS TAKING ATORVASTATIN CALCIUM 20 MG TABLET 1 TABLET ORALLY ONCE A DAY NOT-TAKING BELBUCA 75 MCG FILM 1 FILM TO THE GUM BUCALLY ONCE A DAY MDD1 NOT-TAKING NORCO 5-325 MG TABLET 1 TABLET NEEDED ORALLY EVERY 6 HRS NOT-TAKING DRISDOL 50,000 UNITS TABLET DIRECTED ORALLY WEEKLY MEDICATION LIST REVIEWED AND RECONCILED WITH THE PATIENT PAST MEDICAL HISTORY HTN ASTHMA RHEUMATOID ARTHRITIS - DR FERRERA OSTEOARTHROSIS (BOTH KNEES, HIP, SPINE) NICOTINE DEPENDENCE BIPOLAR DISORDER/DEPRESSION TTE 10/19 S/O EF=55-60% , MODERATE MR, MILD AI STAGE III CERVICAL CANCER AT AGE 18 TREATED WITH CRYO NST/CARDIAC CATHETERIZATION 09/18- NEG COLONOSCOPY 01/18 ADENOMATOUS POLYP-NEXT DUE IN 2017 EGD 01/18- MODERATE HIATAL HERNIA/GERD FIBROMYALGIA IFG CHR CONSTIPATION VIT D DEF ANEMIA HYPERLIPIDEMIA OVARIAN CYST ALLERGIES IBUPROFEN: NAUSEA/VOMITING - ALLERGY ASPIRIN: NAUSEA/VOMITING - ALLERGY BLOOD THINNERS: SEVERE BRUISING - SIDE EFFECTS SURGICAL HISTORY CHOLECYSTECTOMY BILATERAL FOOT SURGERY TUBAL LIGATION LEFT ULNAR NERVE DECOMPRESSION 2010 D&C TRANSESOPHAGEAL ECHOCARDIOGRAM 03/24/13 VENTRAL HERNIA REPAIR 05/22 OVARIAN CYST REMOVED 2020 FAMILY HISTORY FATHER: , [place], CAD, HTN, DIAGNOSED WITH HYPERTENSION MOTHER: , CVA, HTN, DM-2, BRAIN ANEURYSM, CHOKED, DIAGNOSED WITH HYPERTENSION, DIABETES, UNSPECIFIED CEREBRAL ARTERY OCCLUSION WITH CEREBRAL INFARCTION SIBLINGS: 1 BROTHER D/T SUICIDE, DIAGNOSED WITH DIABETES SON(S): ALIVE, ASTHMA DAUGHTER(S): ALIVE, EPILEPSY, ASTHMA MATERNAL UNCLE: OF HEMORRHAGE SECONDARY TO BRAIN ANEURYSM AT AGE 40 4 BROTHER(S) , 3 SISTER(S) . 1 SON(S) , 7 DAUGHTER(S) - HEALTHY. SOCIAL HISTORY GENERAL: TOBACCO USE ARE YOU A:CURRENT SMOKER ARE YOU INTERESTED IN QUITTING?READY TO QUIT COUNSELED THE PATIENT ON TOBACCO USE, CESSATION [id number]/30/2021 HOW MANY CIGARETTES A DAY DO YOU SMOKE?6-10 HOW SOON AFTER YOU WAKE UP DO YOU SMOKE YOUR FIRST CIGARETTE?AFTER 60 MIN HOW OFTEN DO YOU SMOKE CIGARETTES?SOME DAYS, BUT NOT EVERY DAY PATIENT COUNSELED ON THE DANGERS OF TOBACCO USE AND URGED TO QUIT:04/06/2021 LATEX QUESTIONNAIRE LATEX ALLERGY : HAVE YOU EVER DEVELOPED ANY TYPE OF REACTION AFTER HANDLING LATEX PRODUCTS SUCH RUBBER GLOVES, CONDOMS, DIAPHRAGMS, BALLOONS, SOCKS, OR UNDERWEAR?NO LATEX ALLERGY : HAVE YOU EVER DEVELOPED ANY TYPE OF REACTION DURING OR AFTER DENTAL APPOINTMENT, VAGINAL/RECTAL EXAMINATION, SURGICAL PROCEDURE, OR ANY OTHER EXPOSURE?NO LATEX RISK : HAVE YOU EVER HAD ANY DIFFICULTY BREATHING OR HIVES AFTER EATING OR HANDLING ANY FRUITS, OR VEGETABLES; SUCH KIWI, BANANAS, STONE FRUITS, OR CHESTNUTSNO LATEX RISK : DO YOU HAVE A PREVIOUS PERSONAL HISTORY OF MORE THAN NINE SURGERIES, SPINA BIFIDA, OR REPEATED CATHERIZATIONS? NO LATEX RISK : ARE YOU FREQUENTLY EXPOSED TO LATEX PRODUCTS IN YOUR OCCUPATION?NO DATE ASKED : 04/06/2021 RECREATIONAL DRUG USE DRUG USE?NO CAFFEINE 1-2/DAY. MORMONISM NO CHRISTIAN BELIEFS THAT WOULD IMPACT HEALTH CARE. LANGUAGE GU[place]EMALAN. EDUCATION 11 TH GRADE. 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 DIET: REGULAR DIET. EXERCISE: WALKS. MARITAL STATUS: , ALTHOUGH PT'S IS AT VISITS. OTHERS AT HOME: DAUGHTER. - HAS THE PATIENT BEEN EDUCATED REGARDING HIS/HER PLAN OF CARE?YES HAS THE PATIENT BEEN EDUCATED REGARDING PAIN, THE RISK FOR PAIN, THE IMPORTANCE OF EFFECTIVE PAIN MANAGEMENT, AND THE PAIN ASSESSMENT PROCESS?YES HOUSING: R[employer] HOUSE. ADVANCE DIRECTIVE ADVANCE DIRECTIVE DISCUSSED WITH PATIENT:YES ROYCE SAVAGE/BULMARO CASTILLO/SUDARSHAN AQUINO HOSPITALIZATION/MAJOR DIAGNOSTIC PROCEDURE ECTOPIC AND SURGERIES ABOVE COMA FOR FEW MONTHS 2020 KIDNEY INJURY REQUIRING DIALYSIS 10/10/2020 REVIEW OF SYSTEMS CONSTITUTIONAL: ANY RECENT FEVER NO . CHILLS NO . WEIGHT CHANGE OF UNKNOWN REASONS NO . GASTROENTEROLOGY: NEW UNEXPLAINABLE CHANGES IN BOWEL CONTROL NO . CONSTIPATION NO . GENITOURINARY: ANY NEW CHANGE IN BLADDER CONTROL? NO . NEUROLOGY: NEW ONSET DIZZINESS OR NEUROLOGICAL CHANGES NOT MENTIONED NO . NEW NUMBNESS OR PAIN PATTERNS NOT MENTIONED AND PERTINENT TO TODAY'S VISIT NO . CARDIOLOGY: NEW CHEST PRESSURE NO . PATIENT DENIES NO . RESPIRATORY: UNEXPLAINABLE COUGH NO . NEW SHORTNESS OF BREATH NO . VITAL SIGNS WT 142 LBS, HT 62.25 IN, BMI 25.76 INDEX, BP 150/70 MM HG, HR 80 /MIN, RR 18 /MIN, TEMP 97.3 F, OXYGEN SAT % 97%, SAFE IN ENV? (Y/N) YEST.WILFRED JAMISON, PATIENT STATED THAT SHE DID NOT TAKE HER BLOOD PRESSURE MEDICATION. EXAMINATION GENERAL EXAMINATION: GENERALEYES ARE DROOPY . AFFECT IS FLAT AND SLOW. . PSYCHAFFECT IS FLAT. SPEECH IS SLOW . NECK:NO LYMPHADENOPATHY, SUPPLE. LUNGS:CLEAR TO AUSCULTATION BILATERALLY, NO WHEEZES, RHONCHI, RALES. HEART:NO MURMURS, REGULAR RATE AND RHYTHM. ABDOMEN:ABDOMEN IS PROTUBERANT . BOWEL SOUNDS PRESENT X4 QUADS .MILD TENDERNESS WITH PALPATION. LUMBAR:MILD TENDERNESS NOTED OVER PARASPINAL REGION . GAIT IS SOMEWHAT UNSTEADY WITH ASSIST OF WALKER. ASSESSMENTS NEURALGIA INVOLVING ABDOMEN - M79.2 (PRIMARY) TREATMENT NEURALGIA INVOLVING ABDOMEN START HYDROCODONE-ACETAMINOPHEN TABLET, 5-325 MG, 1 TABLET NEEDED, ORALLY, Q8H PRN FOR SEVERE PAIN EPISODES ONLY MDD3 #45 ATBS SHOULD LAST 30 DAYS, 30 DAYS, 45 NOTES: ISTOP REGISTRY REVIEWED AND DEMONSTRATES COMPLLIANCE. , RISKS OF NARCOTIC/OPIOD MEDICATIONS INCLUDES BUT IS NOT LIMITED TO RISK OF DEPENDANCE/DEVELOPMENT OF ADDICTION, MOOD DISTURBANCE AND DEPRESSION, OSTEOPOROSIS, HORMONAL AND LABIDAL CHANGES, RESPIRATORY DEPRESSION AND . PATIENT IS ADVISED NOT TO DRIVE OR DRINK ALCOHOL WHILE ON THESE MEDICATIONS , [facility] NARCOTIC AGREEMENT WAS REVIEWED AND SIGNED TODAY BY THE PATIENT. SEE ATTACHED DOCUMENT FOR FULL DETAILS; SPECIFIC ISSUES WERE REVIEWED: 1) KEEP PAIN MEDS IN THEIR ORIGINAL BOTTLES AND ANY WEEKLY PLANNERS ARE TO BE BROUGHT TO THE PAIN CENTER AT EVERY VISIT. 2) THE PATIENT IS NOT TO INCREASE DOSING OR TIMING OF THEIR PAIN MEDICATION WITHOUT SPECIFIC DIRECTION OF THEIR PAIN CENTERPROVIDER (NOT ER OR OTHER PROVIDERS). 3) ALL PAIN MEDS ARE TO BE KEPT SECURED, IN A LOCKED BOX. 4) NO PAIN MEDS ARE TO BE SHARED WITH ANY OTHER PERSON FOR ANY REASON. 5) NO PAIN MEDS MAY BE TAKEN FROM ANY FRIENDS OR RELATIVES FOR ANY REASON 6) NO MEDS OR SUBSTANCES WHICH ARE NOT LEGAL ARE TO BE USED- NO MARIJUANA, NO COCAINE, AMPHETAMINES, HEROIN, OR OTHERS ARE EVER TO BE USED. 7)URINE TESTING IS DONE TO ACCOUNT FOR MEDS AND SUBSTANCES BEING TAKEN AND WILL BE DONE RANDOMLY. PROCEDURE CODES FA211 ESTABILISHED PATIENT [facility] FACILITY CHARGE DISPOSITION & COMMUNICATION FOLLOW UP 6 WEEKS (REASON: MED MGMNT/UTOX/PILL CT ID) ELECTRONICALLY SIGNED BY MARCIA WALLER ON 04/09/2021 AT 01:06 PM EDT DISCLAIMER : THIS IS A VISIT SUMMARY EXTRACTED FROM THE [employer] CHART. IT IS NOT A COPY OF THE [employer] PROGRESS NOTE. ELIJAH
== END ==
LOC: M PAIN 13:30
PROVIDERS: ATTEND Nurse Practitioner Family
DX: M79.2 Neuralgia and neuritis, unspecified (principal); I10 Essential (primary) hypertension; J45.909 Unspecified asthma, uncomplicated; M06.9 Rheumatoid arthritis, unspecified; M17.0 Bilateral primary osteoarthritis of knee; M16.0 Bilateral primary osteoarthritis of hip; F17.210 Nicotine dependence, cigarettes, uncomplicated; F31.9 Bipolar disorder, unspecified; M79.7 Fibromyalgia; K59.09 Other constipation; E55.9 Vitamin D deficiency, unspecified; D64.9 Anemia, unspecified; E78.5 Hyperlipidemia, unspecified; Z79.891 Long term (current) use of opiate analgesic; Z79.899 Other long term (current) drug therapy; Z88.6 Allergy status to analgesic agent; Z88.8 Allergy status to other drugs, medicaments and biological substances

== ENCOUNTER → 2021-05-09 | Outpatient (REF) | payer OTHER | LOC: M LAB REF 12:46 | PROVIDERS: ATTEND Internal Medicine Nephrology | DX: N25.81 Secondary hyperparathyroidism of renal origin (principal) ==

== ENCOUNTER → 2021-05-23 | Outpatient (CLI) | payer OTHER | LOC: M LABSMTC 10:36 | PROVIDERS: ATTEND Anesthesiology | DX: Z01.818 Encounter for other preprocedural examination (principal); Z11.52 Encounter for screening for COVID-19 ==

== ENCOUNTER 2021-05-28 13:15 | Day surgery (SDC) | payer OTHER ==
[~2021-05-28] VITALS: Ht 157.5 cm; Wt 64.0 kg
[~2021-05-28 13:15] MED LIST changes: +ERGO500029 PO; +GABA-283 PO; +HYDR-3713 PO; +NS 1,000 ML IV ONE
[2021-05-28] MEDS ORDERED: fentaNYL 100 MCG/2 ML INJECTION (J3010) As Ordered ONE (15:43)
[2021-05-28] MEDS ORDERED: propofoL 200 MG/20 ML VIAL As Ordered ONE ×2 (15:46→16:16)
--- NOTE | 2021-05-28 16:36 | ROOR ---
Patient Name: Aggie Champion Procedure Date: 05/28/2021 4:17 PM Date of : 1960 Age: 61 Room: [facility] Gender: Female Note Status: Finalized Procedure: Upper GI endoscopy Indications: Heartburn, Gastroparesis Providers: Ashish Collins MD Referring MD: TENZIN SANCHEZ MD Requesting Provider: Medicines: Monitored Anesthesia Care Complications: No immediate complications. Procedure: Pre-Anesthesia Assessment: - The heart rate, respiratory rate, oxygen saturations, blood pressure, adequacy of pulmonary ventilation, and response to care were monitored throughout the procedure. The Endoscope was introduced through the mouth, and advanced to the second part of duodenum. The upper GI endoscopy was accomplished without difficulty. The patient tolerated the procedure well. Findings: The examined esophagus was normal. Three 5 mm sessile fundic gland polyps were found in the gastric body. The polyp was removed with a cold snare. Resection and retrieval were complete. Small Hiatal Hernia. The exam of the stomach was otherwise normal. The examined duodenum was normal. Impression: - Normal esophagus. - Three fundic gland appearing polyps. Resected and retrieved. - Small Hiatal Hernia. - The stomach is otherwise normal. - Normal examined duodenum. Recommendation: - Gastroparesis diet: - Eat smaller, more frequent meals throughout the day. - Low fat diet. - Liquid/soft foods are tolerated better than solid foods. - Low fiber/well cooked vegetables are tolerated better than high fiber/fibrous foods/raw vegetables. - Avoid medications that inhibit gastric/intestinal motility such as narcotic medications. Procedure Code(s): --- Professional --- 50365, Esophagogastroduodenoscopy, flexible, transoral; with removal of tumor(s), polyp(s), or other lesion(s) by snare technique Diagnosis Code(s): --- Professional --- K31.84, Gastroparesis K31.7, Polyp of stomach and duodenum R12, Heartburn CPT copyright 2019 [employer]. All rights reserved. The codes documented in this report are preliminary and upon cinema or theatre manager review may be revised to meet current compliance requirements. Ashish Collins MD Ashish Collins MD 05/28/2021 4:35:40 PM Electronically signed by Ashish Collins MD Number of Addenda: 0 Note Initiated On: 05/28/2021 4:17 PM Estimated Blood Loss: Estimated blood loss: none.
--- NOTE | 2021-05-28 16:54 | ROOR ---
Patient Name: Aggie Champion Procedure Date: 05/28/2021 4:18 PM Date of : 1960 Age: 61 Room: [facility] Gender: Female Note Status: Finalized Procedure: Colonoscopy Indications: Constipation Providers: Ashish Collins MD Referring MD: TENZIN SANCHEZ MD Requesting Provider: Medicines: Monitored Anesthesia Care Complications: No immediate complications. Procedure: Pre-Anesthesia Assessment: - The heart rate, respiratory rate, oxygen saturations, blood pressure, adequacy of pulmonary ventilation, and response to care were monitored throughout the procedure. The Colonoscope was introduced through the anus and advanced to the cecum, identified by appendiceal orifice and ileocecal valve. The colonoscopy was performed without difficulty. The patient tolerated the procedure well. The quality of the bowel preparation was good. Findings: The perianal and digital rectal examinations were normal. Mild sigmoid diverticulosis and small internal hemorrhoids. The exam was otherwise without abnormality on direct and retroflexion views. Impression: - Mild sigmoid diverticulosis and small internal hemorrhoids. - The colon examination was otherwise normal on direct and retroflexion views. - No specimens collected. Recommendation: - Use fiber, for example Citrucel, Fibercon, Konsyl or Metamucil. - Continue present medications. Procedure Code(s): --- Professional --- 93273, Colonoscopy, flexible; diagnostic, including collection of specimen(s) by brushing or washing, when performed (separate procedure) Diagnosis Code(s): --- Professional --- K59.00, Constipation, unspecified CPT copyright 2019 [employer]. All rights reserved. The codes documented in this report are preliminary and upon textile finisher review may be revised to meet current compliance requirements. Ashish Collins MD Ashish Collins MD 05/28/2021 4:54:20 PM Electronically signed by Ashish Collins MD Number of Addenda: 0 Note Initiated On: 05/28/2021 4:18 PM Estimated Blood Loss: Estimated blood loss: none.
[2021-05-28 17:05] VITALS: BP 139/64
== END 2021-05-28 17:19 | disposition home or self-care (01) ==
LOC: M OPP 13:15
PROVIDERS: ATTEND Internal Medicine Gastroenterology
DX: K57.30 Diverticulosis of large intestine without perforation or abscess without bleeding (principal); K64.8 Other hemorrhoids; K59.00 Constipation, unspecified; K31.84 Gastroparesis; K31.7 Polyp of stomach and duodenum; K44.9 Diaphragmatic hernia without obstruction or gangrene; R12 Heartburn; Z79.891 Long term (current) use of opiate analgesic; Z79.899 Other long term (current) drug therapy; Z88.8 Allergy status to other drugs, medicaments and biological substances; F17.210 Nicotine dependence, cigarettes, uncomplicated
CPT/HCPCS: 43251; 45378; 88305; J3010

== ENCOUNTER → 2021-07-24 | Outpatient (CLI) | payer OTHER ==
[~2021-07-24] MED LIST changes: +DOXY-443 PO; -DOXY1CAP62 PO; -NS 1,000 ML IV ONE
== END ==
LOC: M LAB 13:17
PROVIDERS: ATTEND Physician Assistant
DX: I35.0 Nonrheumatic aortic (valve) stenosis (principal)

== ENCOUNTER → 2021-08-01 | Outpatient (CLI) | payer OTHER ==
--- NOTE | 2021-08-01 13:58 | REP ---
INDICATION: ABNORMAL FINDING OF LUNG FIELD COMPARISON: 01/31/2021 TECHNIQUE: Axial noncontrast images from the thoracic inlet to the upper abdomen with coronal and sagittal reformations. This CT examination was performed using the following dose reduction techniques: Automated exposure control, adjustment of mA and/or kv according to the patient's size, and use of iterative reconstruction technique. FINDINGS: Chronic COPD and emphysematous changes with scattered age-related interstitial changes are stable. Most recent prior examination demonstrated scattered areas of opacity which have resolved. Chronic small focus of non solid change along the periphery of the left mid lung zone consistent with scarring and stable. No acute consolidation, suspicious nodule or mass lesion appreciated. No effusion. No pneumothorax. Tracheobronchial tree is patent. Mediastinal lymph nodes are unchanged. Atherosclerotic changes to the thoracic aorta and coronary arteries again noted. No cardiomegaly or pericardial effusion. Musculoskeletal structures demonstrate stable age-related changes. IMPRESSION: 1. Stable chronic changes. 2. Previous patchy bilateral opacities have resolved and likely represented element of multifocal pneumonia. 3. No acute mediastinal or pleuroparenchymal process appreciated. <Electronically signed by Dusty Tariq > 08/01/21 [id number]
== END ==
LOC: M RAD 13:16
PROVIDERS: ATTEND Internal Medicine Pulmonary Disease
DX: R91.8 Other nonspecific abnormal finding of lung field (principal)

== ENCOUNTER → 2021-09-28 | Outpatient (CLI) | payer OTHER ==
[~2021-09-28] MED LIST changes: +LOSA100T45; -LOSA100T50
== END ==
LOC: M PAIN 11:00
PROVIDERS: ATTEND Anesthesiology
DX: M50.10 Cervical disc disorder with radiculopathy, unspecified cervical region (principal); I10 Essential (primary) hypertension; J45.909 Unspecified asthma, uncomplicated; M06.9 Rheumatoid arthritis, unspecified; M17.0 Bilateral primary osteoarthritis of knee; F31.9 Bipolar disorder, unspecified; F17.210 Nicotine dependence, cigarettes, uncomplicated; K44.9 Diaphragmatic hernia without obstruction or gangrene; K21.9 Gastro-esophageal reflux disease without esophagitis; M79.7 Fibromyalgia; R73.01 Impaired fasting glucose; K59.09 Other constipation; E55.9 Vitamin D deficiency, unspecified; D64.9 Anemia, unspecified; E78.5 Hyperlipidemia, unspecified; Z85.41 Personal history of malignant neoplasm of cervix uteri; Z79.891 Long term (current) use of opiate analgesic; Z79.899 Other long term (current) drug therapy; Z88.6 Allergy status to analgesic agent; Z88.8 Allergy status to other drugs, medicaments and biological substances

== ENCOUNTER → 2021-11-20 | Outpatient (CLI) | payer OTHER | LOC: M PLAIMG 11:29 | PROVIDERS: ATTEND Internal Medicine Pulmonary Disease | DX: R91.8 Other nonspecific abnormal finding of lung field (principal) ==

== ENCOUNTER → 2021-11-26 | Outpatient (CLI) | payer OTHER | LOC: M PAIN 11:45 | PROVIDERS: ATTEND Nurse Practitioner Family | DX: M50.10 Cervical disc disorder with radiculopathy, unspecified cervical region (principal); I10 Essential (primary) hypertension; J45.909 Unspecified asthma, uncomplicated; M17.0 Bilateral primary osteoarthritis of knee; F31.9 Bipolar disorder, unspecified; M79.7 Fibromyalgia; R73.01 Impaired fasting glucose; K59.09 Other constipation; D64.9 Anemia, unspecified; M16.0 Bilateral primary osteoarthritis of hip; E78.5 Hyperlipidemia, unspecified; E55.9 Vitamin D deficiency, unspecified; F17.210 Nicotine dependence, cigarettes, uncomplicated; Z79.891 Long term (current) use of opiate analgesic; Z79.899 Other long term (current) drug therapy; Z88.6 Allergy status to analgesic agent; Z88.8 Allergy status to other drugs, medicaments and biological substances ==

== ENCOUNTER → 2021-12-31 | Outpatient (CLI) | payer OTHER | LOC: M PLARAD 14:44 | PROVIDERS: ATTEND Internal Medicine Pulmonary Disease | DX: R91.1 Solitary pulmonary nodule (principal) | CPT/HCPCS: 78815; A9552 ==

== ENCOUNTER → 2022-01-04 | Outpatient (CLI) | payer OTHER | LOC: M SLEEP 20:00 | PROVIDERS: ATTEND Physician Assistant | DX: G47.33 Obstructive sleep apnea (adult) (pediatric) (principal) ==

== ENCOUNTER → 2022-01-10 | Outpatient (REF) | payer OTHER ==
[2022-01-10 18:00] LABS: BASO # 0.1 10^3/uL (0.0-0.2); BASO % 0.6 % (0.0-1.0); EOS # 0.3 10^3/uL (0.0-0.5); EOS % 2.8 % (0.0-3.0); HEMATOCRIT 42.5 % (36.0-47.0); HEMOGLOBIN 13.6 g/dl (12.0-15.5); LYMPH # 3.9 10^3/uL (1.5-5.0); LYMPH % 33.4 % (24.0-44.0); MEAN CORPUSCULAR HEMOGLOBIN 32.9 pg (27.0-33.0); MEAN CORPUSCULAR VOLUME 102.7 fl (80.0-96.0); MONO # 0.8 10^3/uL (0.0-0.8); MONO % 6.4 % (2.0-8.0); NEUTROPHILS # 6.6 10^3/uL (1.5-8.5); NEUTROPHILS % 56.4 % (36.0-66.0); PLATELET COUNT, AUTOMATED 248 10^3/uL (150-450); RED BLOOD COUNT 4.14 10^6/uL (4.00-5.40); WHITE BLOOD COUNT 11.6 10^3/uL (4.0-10.0)
[2022-01-10 18:01] LABS: ALBUMIN 3.6 GM/DL (3.2-5.2); BILIRUBIN,TOTAL 0.4 MG/DL (0.2-1.0); C REACTIVE PROTEIN QUANTITATIV 0.3 MG/DL (0.00-0.30); CALCIUM LEVEL 9.2 MG/DL (8.8-10.2); CREATININE FOR GFR 1.68 MG/DL (0.55-1.30); GLOMERULAR FILTRATION RATE 39.8 (>45); POTASSIUM SERUM 4.6 MEQ/L (3.5-5.1); RHEUMATOID FACTOR QUANT 15.1 IU/ML (<15.0); TOTAL PROTEIN 6.8 GM/DL (6.4-8.2)
[2022-01-10 19:28] LABS: ERYTHROCYTE SEDIMENTATION RATE 6 mm/hr (0-30)
== END ==
LOC: M SFHCRHEU 12:51
PROVIDERS: ATTEND Internal Medicine Rheumatology
DX: M06.9 Rheumatoid arthritis, unspecified (principal); M79.7 Fibromyalgia; M15.9 Polyosteoarthritis, unspecified; H04.123 Dry eye syndrome of bilateral lacrimal glands

== ENCOUNTER → 2022-04-09 | Outpatient (REF) | payer OTHER ==
[2022-04-09 17:58] LABS: MALB URINE SIEMENS 65.6 MG/L; MAU/CREAT RATIO 33.6 MCG/MG (0.0-30.0)
== END ==
LOC: M LAB REF 17:15
PROVIDERS: ATTEND Internal Medicine Nephrology
DX: N17.9 Acute kidney failure, unspecified (principal)

== ENCOUNTER → 2022-04-29 | Outpatient (CLI) | payer OTHER | LOC: M PAIN 11:15 | PROVIDERS: ATTEND Nurse Practitioner Family | DX: M50.10 Cervical disc disorder with radiculopathy, unspecified cervical region (principal); I10 Essential (primary) hypertension; M06.9 Rheumatoid arthritis, unspecified; M17.0 Bilateral primary osteoarthritis of knee; F31.9 Bipolar disorder, unspecified; I34.0 Nonrheumatic mitral (valve) insufficiency; K44.9 Diaphragmatic hernia without obstruction or gangrene; K21.9 Gastro-esophageal reflux disease without esophagitis; M79.7 Fibromyalgia; R73.01 Impaired fasting glucose; K59.09 Other constipation; E55.9 Vitamin D deficiency, unspecified; D64.9 Anemia, unspecified; F17.210 Nicotine dependence, cigarettes, uncomplicated; E78.5 Hyperlipidemia, unspecified; Z85.41 Personal history of malignant neoplasm of cervix uteri; Z79.891 Long term (current) use of opiate analgesic; Z90.49 Acquired absence of other specified parts of digestive tract; Z79.899 Other long term (current) drug therapy; Z88.6 Allergy status to analgesic agent; Z88.8 Allergy status to other drugs, medicaments and biological substances ==

== ENCOUNTER → 2022-07-24 | Outpatient (CLI) | payer OTHER | LOC: M PAIN 17:00 | PROVIDERS: ATTEND Anesthesiology | DX: M50.10 Cervical disc disorder with radiculopathy, unspecified cervical region (principal); I10 Essential (primary) hypertension; J45.909 Unspecified asthma, uncomplicated; M06.9 Rheumatoid arthritis, unspecified; M17.0 Bilateral primary osteoarthritis of knee; M47.9 Spondylosis, unspecified; F31.9 Bipolar disorder, unspecified; M79.7 Fibromyalgia; R73.01 Impaired fasting glucose; K59.09 Other constipation; E55.9 Vitamin D deficiency, unspecified; D64.9 Anemia, unspecified; E78.5 Hyperlipidemia, unspecified; F17.210 Nicotine dependence, cigarettes, uncomplicated; Z79.891 Long term (current) use of opiate analgesic; Z79.899 Other long term (current) drug therapy; Z88.6 Allergy status to analgesic agent; Z88.8 Allergy status to other drugs, medicaments and biological substances ==

== ENCOUNTER → 2023-01-08 | Outpatient (CLI) | payer OTHER ==
[~2023-01-08] MED LIST changes: -LOSA100T45; +LOSA100T46
[2023-01-08 16:06] LABS: ABG BASE EXCESS 1.1 (-2.0-2.0); ABG HCO3 26.5 MMOL/L (22.0-26.0); ABG PARTIAL PRESSURE O2 67.3 mmHg (75.0-100.0); ABG STANDARD HCO3 25.4 MMOL/L. (22.0-26.0); ABG TOTAL CO2 27.9 MMOL/L (23.0-31.0); ABG pH (ARTERIAL) 7.388 UNITS (7.350-7.450)
== END ==
LOC: M LAB 15:46
PROVIDERS: ATTEND Physician Assistant
DX: J43.2 Centrilobular emphysema (principal)

== ENCOUNTER 2023-07-17 08:14 | Day surgery (SDC) | payer OTHER ==
[~2023-07-17] VITALS: Ht 157.5 cm; Wt 86.2 kg
[~2023-07-17 08:14] MED LIST changes: +AMLO2.5T3 PO; +ATOR1TAB21 PO; +BSS IRRIG/VANCO(10MG)/TOBRA(5MG)/EPINEPH(1:1000-0.5CC)500ML BAG-ORONLY IR ONE; +CEFUROXIME 1MG/0.1ML INTRACAMERAL INJ As Ordered ONE; +CETI-24 PO; +ESTR3TA PO; +GABA-282 PO; -GABA-283 PO; +GABA-284 PO; +LIDOCAINE 1% SDV 5ML VIAL As Ordered ONE; +LIDOCAINE 3.5 % 1ML OPHTH TOPICAL GEL OU ONE; +MIRT-11 PO; +OFLOXACIN 0.3 % (OCUFLOX) OPTH SOL 5ML OS ONE; +PHENYLEPHRINE 10% OPHTH SOL 5ML OS PRN; +VENL37.598 PO
[2023-07-17] MEDS: PHENYLEPHRINE 2.5% OPHTH SOL 2ML OS SCH ×2 (08:36→08:37)
[2023-07-17] MEDS: CYCLOPENTOLATE 1% OPHTH SOLN 2ML BTL OS SCH ×2 (08:36→08:37)
[2023-07-17] MEDS: TROPICAMIDE 1% OPHTH SOLN 15ML OS SCH (08:37)
[2023-07-17] MEDS ORDERED: MIDAZOLAM INJ 2MG/2ML VIAL As Ordered ONE (09:26)
[2023-07-17] MEDS ORDERED: fentaNYL 100 MCG/2 ML INJECTION As Ordered ONE (09:26)
[2023-07-17 10:10] VITALS: BP 150/72; TEMP 96.8; O2SAT 94
== END 2023-07-17 10:15 | disposition home or self-care (01) ==
LOC: M SDC 08:14
PROVIDERS: ATTEND Ophthalmology
DX: H25.12 Age-related nuclear cataract, left eye (principal); G47.30 Sleep apnea, unspecified; I25.2 Old myocardial infarction; I10 Essential (primary) hypertension; E78.00 Pure hypercholesterolemia, unspecified; J44.9 Chronic obstructive pulmonary disease, unspecified; J45.909 Unspecified asthma, uncomplicated; F41.9 Anxiety disorder, unspecified; M06.9 Rheumatoid arthritis, unspecified; Z79.899 Other long term (current) drug therapy; Z88.8 Allergy status to other drugs, medicaments and biological substances; Z88.6 Allergy status to analgesic agent; Z91.011 Allergy to milk products
CPT/HCPCS: 66984; J0697; J2250; J3010; V2632

== ENCOUNTER 2023-08-14 08:21 | Day surgery (SDC) | payer OTHER ==
[~2023-08-14] VITALS: Ht 157.5 cm; Wt 87.4 kg
[~2023-08-14 08:21] MED LIST changes: -ARNU1INH; +ARNU1INH INH; +CYCLOPENTOLATE 1% OPHTH SOLN 2ML BTL OD SCH; +MIDAZOLAM INJ 2MG/2ML VIAL As Ordered ONE; +OFLOXACIN 0.3 % (OCUFLOX) OPTH SOL 5ML OD ONE; -OFLOXACIN 0.3 % (OCUFLOX) OPTH SOL 5ML OS ONE; +PHENYLEPHRINE 10% OPHTH SOL 5ML OD PRN; -PHENYLEPHRINE 10% OPHTH SOL 5ML OS PRN; +PHENYLEPHRINE 2.5% OPHTH SOL 2ML OD SCH; +TROPICAMIDE 1% OPHTH SOLN 15ML OD SCH; +fentaNYL 100 MCG/2 ML INJECTION As Ordered ONE
[2023-08-14 11:00] VITALS: BP 133/82; TEMP 97; O2SAT 96
== END 2023-08-14 11:10 | disposition home or self-care (01) ==
LOC: M SDC 08:21
PROVIDERS: ATTEND Ophthalmology
DX: H25.11 Age-related nuclear cataract, right eye (principal); I10 Essential (primary) hypertension; E78.00 Pure hypercholesterolemia, unspecified; I25.2 Old myocardial infarction; J44.9 Chronic obstructive pulmonary disease, unspecified; G47.30 Sleep apnea, unspecified; F31.9 Bipolar disorder, unspecified; Z79.899 Other long term (current) drug therapy; Z88.6 Allergy status to analgesic agent; Z88.8 Allergy status to other drugs, medicaments and biological substances
CPT/HCPCS: 66984; J0697; J2250; J3010; V2632

== ENCOUNTER → 2023-08-29 | Outpatient (CLI) | payer OTHER ==
[~2023-08-29] MED LIST changes: -BSS IRRIG/VANCO(10MG)/TOBRA(5MG)/EPINEPH(1:1000-0.5CC)500ML BAG-ORONLY IR ONE; -CEFUROXIME 1MG/0.1ML INTRACAMERAL INJ As Ordered ONE; -CYCLOPENTOLATE 1% OPHTH SOLN 2ML BTL OD SCH; -LIDOCAINE 1% SDV 5ML VIAL As Ordered ONE; -LIDOCAINE 3.5 % 1ML OPHTH TOPICAL GEL OU ONE; -MIDAZOLAM INJ 2MG/2ML VIAL As Ordered ONE; -OFLOXACIN 0.3 % (OCUFLOX) OPTH SOL 5ML OD ONE; -PHENYLEPHRINE 10% OPHTH SOL 5ML OD PRN; -PHENYLEPHRINE 2.5% OPHTH SOL 2ML OD SCH; -TROPICAMIDE 1% OPHTH SOLN 15ML OD SCH; -fentaNYL 100 MCG/2 ML INJECTION As Ordered ONE
== END ==
LOC: M RAD 10:25
PROVIDERS: ATTEND Internal Medicine Pulmonary Disease
DX: Z12.2 Encounter for screening for malignant neoplasm of respiratory organs (principal); F17.218 Nicotine dependence, cigarettes, with other nicotine-induced disorders

== ENCOUNTER → 2024-06-18 | Outpatient (CLI) | payer OTHER ==
[~2024-06-18] MED LIST changes: +DOXY-441 PO; -DOXY-443 PO; +GABA-1172 PO; +GABA-1635 PO; -GABA-282 PO; -GABA800T4 PO; +METO1TAB33 PO; +PREG100CA PO
[2024-06-18 15:27] LABS: BASO % 0.7 % (0.0-1.0); EOS # 0.2 10^3/uL (0.0-0.5); EOS % 3.5 % (0.0-3.0); HEMATOCRIT 41.3 % (36.0-47.0); HEMOGLOBIN 13.5 g/dl (12.0-15.5); LYMPH # 2.3 10^3/uL (1.5-5.0); LYMPH % 38.5 % (24.0-44.0); MEAN CORPUSCULAR HEMOGLOBIN 32.8 pg (27.0-33.0); MEAN CORPUSCULAR HGB CONC 32.7 g/dl (32.0-36.5); MEAN CORPUSCULAR VOLUME 100.5 fl (80.0-96.0); MONO # 0.4 10^3/uL (0.0-0.8); MONO % 5.8 % (2.0-8.0); NEUTROPHILS # 3.1 10^3/uL (1.5-8.5); NEUTROPHILS % 51.3 % (36.0-66.0); PLATELET COUNT, AUTOMATED 192 10^3/uL (150-450); RED BLOOD COUNT 4.11 10^6/uL (4.00-5.40); WHITE BLOOD COUNT 6.1 10^3/uL (4.0-10.0)
[2024-06-18 15:49] LABS: HEMOGLOBIN A1c 5.3 % (4.0-6.0)
[2024-06-18 16:02] LABS: ALBUMIN 3.7 G/DL (3.2-5.2); ALKALINE PHOSPHATASE 66 U/L (46-116); ALT/SGPT 12 U/L (7.0-40); AST/SGOT < 8 U/L (<34); BILIRUBIN,TOTAL 0.3 MG/DL (0.3-1.2); BLOOD UREA NITROGEN 15 MG/DL (9-23); CARBON DIOXIDE LEVEL 29 MMOL/L (20-31); CHLORIDE LEVEL 114 MMOL/L (98-107); CHOLESTEROL LEVEL 151 MG/DL (<200); CHOLESTEROL RISK RATIO 3.73 (<5); CREATININE FOR GFR 1.31 MG/DL (0.55-1.30); GLOMERULAR FILTRATION RATE 52.6 (>45); GLUCOSE, FASTING 92 MG/DL (74-106); HDL CHOLESTEROL 40.4 MG/DL (>40); NON-HDL-C 110.6 MG/DL; POTASSIUM SERUM 4.1 MMOL/L (3.5-5.1); SODIUM LEVEL 145 MMOL/L (136-145); TOTAL PROTEIN 7.2 G/DL (5.7-8.2); TRIGLYCERIDES LEVEL 133 MG/DL (<150)
[2024-06-18 16:04] LABS: THYROID STIMULATING HORMONE 0.872 uIU/ML (0.55-4.78); TOTAL 25(OH) VITAMIN D 134.3 NG/ML (20.0-100.0)
== END ==
LOC: M LAB 14:25
PROVIDERS: ATTEND Family Medicine
DX: Z00.00 Encounter for general adult medical examination without abnormal findings (principal)

== ENCOUNTER → 2024-06-19 | Outpatient (REF) | payer MEDICARE, OTHER ==
[2024-06-21 08:57] LABS: APPEARANCE, URINE TURBID (CLEAR)
[2024-06-21 08:59] LABS: BILIRUBIN, URINE AUTO NEGATIVE (NEGATIVE); COLOR, URINE AMBER (YELLOW); GLUCOSE, URINE (UA) AUTO NEGATIVE (NEGATIVE); KETONE, URINE AUTO NEGATIVE (NEGATIVE); PROTEIN, URINE AUTO 2+ mg/dL (NEGATIVE); SPECIFIC GRAVITY URINE AUTO 1.024 (1.002-1.035)
[2024-06-21 09:00] LABS: BACTERIA, URINE AUTO 3+ (NEGATIVE); BLOOD, URINE BLOOD NEGATIVE (NEGATIVE); LEUKOCYTE ESTERASE, URINE AUTO NEGATIVE (NEGATIVE); NITRITE, URINE AUTO NEGATIVE (NEGATIVE); RBC, URINE AUTO 0 /HPF (0-3); SQUAMOUS EPITHELIAL CELL UR AU 17 /HPF (0-6); WBC, URINE AUTO 0 /HPF (0-3)
[2024-06-21 09:01] LABS: MUCUS, URINE SMALL (NEGATIVE)
== END ==
LOC: M LAB REF 15:18
PROVIDERS: ATTEND Family Medicine
DX: N39.0 Urinary tract infection, site not specified (principal)

== ENCOUNTER → 2024-06-25 | Outpatient (CLI) | payer MEDICARE | LOC: M LAB 12:48 | PROVIDERS: ATTEND Internal Medicine | DX: Z11.1 Encounter for screening for respiratory tuberculosis (principal) ==

== ENCOUNTER → 2024-07-07 | Outpatient (CLI) | payer MEDICARE ==
[~2024-07-07] MED LIST changes: +ISOVUE-300 61% 100ML VIAL As Ordered ONE; +LIDOCAINE 1% MDV 20ML VIAL As Ordered ONE; +TRIAMCINOLONE ACETONIDE SUSP 40MG/ML 1ML VIAL As Ordered ONE
== END ==
LOC: M RAD 13:00
PROVIDERS: ATTEND Physician Assistant
DX: M16.12 Unilateral primary osteoarthritis, left hip (principal)
CPT/HCPCS: 20610; 77002; J3301; Q9967

== ENCOUNTER → 2024-10-18 | Outpatient (CLI) | payer MEDICARE ==
[~2024-10-18] MED LIST changes: -ISOVUE-300 61% 100ML VIAL As Ordered ONE; -LIDOCAINE 1% MDV 20ML VIAL As Ordered ONE; -TRIAMCINOLONE ACETONIDE SUSP 40MG/ML 1ML VIAL As Ordered ONE
== END ==
LOC: M WHC 13:14
PROVIDERS: ATTEND Family Medicine
DX: M81.0 Age-related osteoporosis without current pathological fracture (principal)

== ENCOUNTER → 2024-10-28 | Outpatient (CLI) | payer MEDICARE | LOC: M RAD 10:45 | PROVIDERS: ATTEND Internal Medicine Pulmonary Disease | DX: F17.218 Nicotine dependence, cigarettes, with other nicotine-induced disorders (principal) ==

== ENCOUNTER → 2024-12-16 | Outpatient (CLI) | payer MEDICARE, OTHER | LOC: M RAD 15:14 | PROVIDERS: ATTEND Physician Assistant Medical | DX: R63.4 Abnormal weight loss (principal) ==

== ENCOUNTER → 2025-07-05 | Outpatient (REF) | payer MEDICARE, OTHER, MEDICAID ==
[~2025-07-05] MED LIST changes: +PREG-35 PO; -PREG100CA PO
== END ==
LOC: M LAB REF 17:10
PROVIDERS: ATTEND Internal Medicine Pulmonary Disease
DX: J44.9 Chronic obstructive pulmonary disease, unspecified (principal)

== ENCOUNTER → 2025-07-12 | Outpatient (CLI) | payer MEDICARE, OTHER ==
[~2025-07-12] MED LIST changes: +E-Z-GAS II EFFERVESCENT PACKET (SODIUM BICARB./CITRIC ACID/SIMETHICONE) As Ordered ONE; +E-Z-HD 98% w/w 340 GM SUSP BTL As Ordered ONE; +E-Z-PAQUE 96% w/w SUSP 176 GM BTL As Ordered ONE
== END ==
LOC: M RAD 10:45
PROVIDERS: ATTEND Surgery
DX: K44.9 Diaphragmatic hernia without obstruction or gangrene (principal)

== ENCOUNTER → 2025-07-26 | Outpatient (CLI) | payer MEDICARE, OTHER ==
[~2025-07-26] MED LIST changes: -E-Z-GAS II EFFERVESCENT PACKET (SODIUM BICARB./CITRIC ACID/SIMETHICONE) As Ordered ONE; -E-Z-HD 98% w/w 340 GM SUSP BTL As Ordered ONE; -E-Z-PAQUE 96% w/w SUSP 176 GM BTL As Ordered ONE
== END ==
LOC: M RAD 11:37
PROVIDERS: ATTEND Family Medicine
DX: R07.89 Other chest pain (principal); M54.2 Cervicalgia; M47.812 Spondylosis without myelopathy or radiculopathy, cervical region